=== PATIENT | male | born 1950 | race African-American/Black ===

== ENCOUNTER 2017-01-29 19:23 | Inpatient (IN) | payer OTHER ==
[~2017-01-29] VITALS: Ht 180.3 cm; Wt 72.6 kg
[~2017-01-29 19:23] MED LIST: AMLODIPINE BES2.5 MG ORAL
--- NOTE | 2017-01-29 19:38 | Emergency Room Report ---
History of Present Illness General Chief Complaint: Dyspnea/Respdistress Source: Patient, Medical Record, EMS Present Illness HPI 66-year-old male, former smoker, newly diagnosed stage IV lung cancer, presenting with dyspnea and generalized weakness. Patient states that he was at the grocery store, felt that he was going to pass out, could not catch his breath. Patient states that he lives alone States that he had a recent discharge from [facility] a few weeks ago, that when he found out that he had stage IV lung cancer, he is supposed to see an oncologist has not completed any chemotherapy or radiation Allergies: Coded Allergies: No Known Allergies (Unverified , 01/29/17) Patient History Past Medical History: see triage record Past Surgical History: none Pertinent Family History: none Reviewed Nursing Documentation: PMH: Agreed, PSxH: Agreed Nursing Documentation-PMH Past Medical History: No History, Except For Hx Hypertension: Yes Review of Systems All Other Systems: negative except mentioned in HPI Physical Exam Vital Signs Date Time Temp Pulse Resp B/P (MAP) Pulse Ox O2 Delivery O2 Flow Rate FiO2 01/29/17 19:19 98.4 102 16 103/83 95 Nasal Cannula 2.0 Sp02 EP Interpretation: abnormal - 90 on RA, 100 on 2L NC General Appearance: alert, GCS 15, non-toxic, moderate distress, other - sob but speaking in complete sentences Head: normocephalic, atraumatic Eyes: bilateral eye normal inspection, bilateral eye PERRL, bilateral eye EOMI ENT: normal ENT inspection, normal pharynx, normal voice, moist mucus membranes Neck: normal inspection, full range of motion, supple Respiratory: respiratory distress, speaking full sentences, other - diminished b/s R lung base, possible wheeze L side, chest symmetrical Cardiovascular #1: no edema, normal capillary refill, tachycardia Cardiovascular #2: 2+ radial (R), 2+ radial (L) Gastrointestinal: normal inspection, non tender, soft, non-distended, no guarding Musculoskeletal: normal inspection, back normal, normal range of motion, non- tender Neurologic: normal inspection, alert, oriented x3, responsive, motor strength/ tone normal, sensory intact, normal gait, speech normal Psychiatric: normal inspection, judgement/insight normal, memory normal Skin: normal inspection, normal color, no rash, warm/dry, well hydrated, normal turgor Medical Decision Making Diagnostic Impression: Primary Impression: Dyspnea Additional Impression: Lung cancer ER Course 66-year-old male, lung CA, presenting with dyspnea DDX: Pneumonia, COPD exacerbation, ACS, progression of lung cancer, pulmonary embolism Plan: Obtain labs, ua, EKG, CXR ER course: Patient has been monitored during ED stay, HD stable Mildly hypoxic on room air, 2 L nasal cannula given Document obtained from [facility], patient had a CAT scan of the chest on January 21, it showed stable encasement N. attenuation of the left pulmonary artery by hilar mass and lymphadenopathy. No pulmonary embolism. Stable appearance of left hilar mass suspicious for malignancy. Stable/moderate right pleural effusion. labs unremarkable Disposition: Patient is to be admitted to telemetry D/W hospitalist Dr Luz Kramer Please note that this Emergency Department Report was dictated using [employer] identifier technology software, occasionally this can lead to erroneous entry secondary to interpretation by the dictation equipment. EKG Diagnostic Results EP Interpretation: Yes Rate: normal Rhythm: NSR ST Segments: No acute changes + pvcs ASA given to patient: No Rhythm Strip EP Interpretation: Yes Rate: 83 Rhythm: NSR, +PVCs, no ectopy Chest X-ray CXR: Ordered: Yes 1 view Indication: Shortness of breath EP interpretation: Yes Interpretation: b/l pulmonary infilrate vs. lung mass Impression: b/l pulm infilrate vs. lung mass Electronically signed by Liza Ram MD Laboratory Tests Test 01/29/17 19:33 01/29/17 20:06 White Blood Count 6.3 K/UL (4.8-10.8) Red Blood Count 4.40 M/UL (4.70-6.10) L Hemoglobin 13.8 G/DL (14.2-18.0) L Hematocrit 42.4 % (42.0-52.0) Mean Corpuscular Volume 96 FL (80-99) Mean Corpuscular Hemoglobin 31.4 PG (27.0-31.0) H Mean Corpuscular Hemoglobin Concent 32.6 G/DL (32.0-36.0) Red Cell Distribution Width 12.2 % (11.6-14.8) Platelet Count 323 K/UL (150-450) Mean Platelet Volume 7.6 FL (6.5-10.1) Neutrophils (%) (Auto) 72.8 % (45.0-75.0) Lymphocytes (%) (Auto) 16.5 % (20.0-45.0) L Monocytes (%) (Auto) 8.0 % (1.0-10.0) Eosinophils (%) (Auto) 1.9 % (0.0-3.0) Basophils (%) (Auto) 0.9 % (0.0-2.0) Sodium Level 138 MMOL/L (136-145) Potassium Level 4.1 MMOL/L (3.5-5.1) Chloride Level 103 MMOL/L (98-107) Carbon Dioxide Level 30 MMOL/L (21-32) Anion Gap 5 mmol/L (5-15) Blood Urea Nitrogen 16 mg/dL (7-18) Creatinine 1.1 MG/DL (0.55-1.30) Estimate Glomerular Filtration Rate > 60 mL/min (>60) Glucose Level 93 MG/DL (74-106) Calcium Level 9.5 MG/DL (8.5-10.1) Total Bilirubin 0.3 MG/DL (0.2-1.0) Aspartate Amino Transferase (AST) 29 U/L (15-37) Alanine Aminotransferase (ALT) 20 U/L (12-78) Alkaline Phosphatase 59 U/L (46-116) Troponin I 0.024 ng/mL (0.000-0.056) Pro-B-Type Natriuretic Peptide 949 pg/mL (0-125) H Total Protein 7.0 G/DL (6.4-8.2) Albumin 2.6 G/DL (3.4-5.0) L Globulin 4.4 g/dL Albumin/Globulin Ratio 0.6 (1.0-2.7) L Urine Color Yellow Urine Appearance Clear Urine pH 6 (4.5-8.0) Urine Specific [place] 1.015 (1.005-1.035) Urine Protein 1+ (NEGATIVE) H Urine Glucose (UA) Negative (NEGATIVE) Urine Ketones Negative (NEGATIVE) Urine Occult Blood 1+ (NEGATIVE) H Urine Nitrite Negative (NEGATIVE) Urine Bilirubin Negative (NEGATIVE) Urine Urobilinogen Normal MG/DL (0.0-1.0) Urine Leukocyte Esterase 1+ (NEGATIVE) H Urine RBC 5-10 /HPF (0 - 0) H Urine WBC 0-2 /HPF (0 - 0) Urine Squamous Epithelial Cells None /LPF (NONE/OCC) Urine Calcium Oxalate Crystals Moderate /LPF (NONE) Urine Bacteria Occasional /HPF (NONE) Last Vital Signs Date Time Temp Pulse Resp B/P (MAP) Pulse Ox O2 Delivery O2 Flow Rate FiO2 01/29/17 19:19 98.4 102 16 103/83 95 Nasal Cannula 2.0 Disposition: ADMITTED INPATIENT Condition: Serious RetinoLiza M.D. Jan 29, 2017 19:38
[2017-01-29 19:50] LABS: BASOPHILS % (AUTO) 0.9 % (0.0-2.0); EOSINOPHILS % (AUTO) 1.9 % (0.0-3.0); LYMPHOCYTES % (AUTO) 16.5 % (20.0-45.0); MEAN CORPUSCULAR HEMOGLOBIN 31.4 PG (27.0-31.0); MEAN CORPUSCULAR HGB CONC 32.6 G/DL (32.0-36.0); MEAN CORPUSCULAR VOLUME 96 FL (80-99); MEAN PLATELET VOLUME 7.6 FL (6.5-10.1); NEUTROPHILS % (AUTO) 72.8 % (45.0-75.0); PLATELET COUNT 323 K/UL (150-450); RED CELL DISTRIBUTION WIDTH 12.2 % (11.6-14.8); WHITE BLOOD COUNT 6.3 K/UL (4.8-10.8)
[2017-01-29 20:07] LABS: ANION GAP 5 mmol/L (5-15); CALCIUM 9.5 MG/DL (8.5-10.1); CARBON DIOXIDE 30 MMOL/L (21-32); CHLORIDE 103 MMOL/L (98-107); CREATININE 1.1 MG/DL (0.55-1.30); GLOMERULAR FILTRATION RATE > 60 mL/min (>60); POTASSIUM 4.1 MMOL/L (3.5-5.1); SODIUM 138 MMOL/L (136-145)
[2017-01-29 20:16] VITALS: BP 109/92
[2017-01-29 20:17] LABS: ALANINE AMINOTRANSFERASE 20 U/L (12-78); ALBUMIN/GLOBULIN RATIO 0.6 (1.0-2.7); ASPARTATE AMINO TRANSFERASE 29 U/L (15-37)
[2017-01-29 20:45] LABS: APPEARANCE,URINE CLEAR; KETONES,URINE NEGATIVE (NEGATIVE); LEUKOCYTE ESTERASE ,URINE 1+ (NEGATIVE); NITRITE,URINE NEGATIVE (NEGATIVE); PH,URINE 6 (4.5-8.0); PROTEIN,URINE 1+ (NEGATIVE); UROBILINOGEN,URINE NORMAL MG/DL (0.0-1.0)
[2017-01-29 20:52] LABS: WBC,URINE 0-2 /HPF (0 - 0)
[2017-01-29 20:53] LABS: BACTERIA,URINE OCCASIONAL /HPF; CALCIUM OXALATE CRYSTALS,UR MODERATE /LPF
[2017-01-29 21:36] VITALS: BP 104/70
[2017-01-29] MEDS ORDERED: Morphine Sulfate 4mg/ml Inj IVP ONE (21:45)
[2017-01-29] MEDS ORDERED: Miralax 17gm pkt ORAL PRN (22:45)
[2017-01-29] MEDS ORDERED: Vancomycin 1 GM in D5W 275 ML IV SCH (23:00)
[2017-01-30] MEDS: Vancomycin 1.5 GM/D5W 250ML IVPB SCH ×3 (00:17→23:50)
[2017-01-30 00:41] VITALS: BP 103/62
[2017-01-30 04:39] VITALS: BP 109/59
[2017-01-30] MEDS: Albuterol/Ipratropium 3ml neb HHN PRN (07:56)
[2017-01-30 07:59] LABS: EOSINOPHILS % (AUTO) 2.6 % (0.0-3.0); LYMPHOCYTES % (AUTO) 18.8 % (20.0-45.0); MEAN CORPUSCULAR HEMOGLOBIN 31.8 PG (27.0-31.0); MEAN CORPUSCULAR HGB CONC 33.1 G/DL (32.0-36.0); MEAN CORPUSCULAR VOLUME 96 FL (80-99); MEAN PLATELET VOLUME 7.7 FL (6.5-10.1); MONOCYTES % (AUTO) 11.7 % (1.0-10.0); NEUTROPHILS % (AUTO) 65.9 % (45.0-75.0); PLATELET COUNT 326 K/UL (150-450); RED BLOOD COUNT 4.37 M/UL (4.70-6.10); RED CELL DISTRIBUTION WIDTH 12.4 % (11.6-14.8)
[2017-01-30 08:21] LABS: ANION GAP 5 mmol/L (5-15); CALCIUM 9.4 MG/DL (8.5-10.1); CARBON DIOXIDE 30 MMOL/L (21-32); CHLORIDE 103 MMOL/L (98-107); CREATININE 1.1 MG/DL (0.55-1.30); GLOMERULAR FILTRATION RATE > 60 mL/min (>60); PHOSPHORUS 3.8 MG/DL (2.5-4.9); POTASSIUM 4.3 MMOL/L (3.5-5.1); SODIUM 138 MMOL/L (136-145)
[2017-01-30 08:22] VITALS: BP 108/80
[2017-01-30] MEDS ORDERED: Cefepime HCl 2 GM in D5W 110 ML IV SCH (09:00)
[2017-01-30] MEDS: Morphine Sulfate 4mg/ml Inj IVP PRN ×3 (09:02→22:57)
[2017-01-30] MEDS: Heparin 5000 units/ml inj SUBQ SCH ×2 (09:19→21:07)
--- NOTE | 2017-01-30 10:56 | Diagnostic Imaging Report ---
Indication: Dyspnea Comparison: None A single view chest radiograph was obtained. Findings: Interstitial edema demonstrated. Patchy basilar infiltrates noted. The heart is borderline in size. Bones are osteopenic. Impression: Suspected CHF. Basilar infiltrates either inflammatory or asymmetric edema noted.
[2017-01-30 11:52] VITALS: BP 104/54
--- NOTE | 2017-01-30 13:12 | Consultation ---
History of Present Illness General Date patient seen: Jan 30, 2017 Time patient seen: 12:15 Chief Complaint: Dyspnea/Respdistress Referring physician: dr Crooks Reason for Consultation: lung Ca, resp distress Present Illness HPI 66-year-old male with hx of HTN, former smoker, newly diagnosed stage IV lung cancer, presented with dyspnea and generalized weakness. Patient reports air hunger, unable to catch enough air or take a deep breath Patient was recently hospitalized at [facility] few weeks ago, where it was found out that he had stage IV lung cancer At that time had complete workup for chest pain, including cardiac cath Patient initially hypoxemic, required placement of supplemental oxygen ( no oxygen at home) afebrile, CXR with suspected CHF. Basilar infiltrates either inflammatory or asymmetric edema noted pro [id number] troponin negative lytes stable patient was admitted to tele floor for further management Allergies: Coded Allergies: No Known Allergies (Unverified , 01/29/17) Medication History Scheduled Amlodipine Besylate* (Amlodipine Besylate*), 2.5 MG ORAL DAILY, (Reported) Patient History History Provided By: Patient Healthcare decision maker N Resuscitation status Full Code Advanced Directive on File No Past Medical/Surgical History Past Medical/Surgical History: (1) Tobacco abuse (2) HTN (hypertension) (3) Lung cancer Review of Systems Constitutional: Reports: weakness Eye: Reports: no symptoms ENT: Reports: no symptoms Respiratory: Reports: see HPI Cardiovascular: Reports: see HPI Gastrointestinal: Reports: other - epigastric pain Genitourinary: Reports: no symptoms Musculoskeletal: Reports: no symptoms Skin: Reports: no symptoms Psychiatric: Reports: other Neurological: Reports: no symptoms Endocrine: Reports: no symptoms Hematologic/Lymphatic: Reports: no symptoms Physical Exam General Appearance: no apparent distress, other - A/A/O x 3 in mild distress AA male Lines, tubes and drains: peripheral HEENT: normocephalic, atraumatic, anicteric, mucous membranes moist, PERRL, other - O2 via NC Neck: non-tender, supple Respiratory/Chest: other - decreased BS on the left side, rhonchi on the rigth side Cardiovascular/Chest: normal rate, regular rhythm - SR with frequent PVC, other - trace edema foot Abdomen: normal bowel sounds, non tender, soft Extremities: normal range of motion, non-tender, no calf tenderness, normal capillary refill 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, no motor/sensory deficits, alert, oriented x 3, responsive Lymphatic: anterior cervical Musculoskeletal: normal muscle bulk Last 24 Hour Vital Signs Date Time Temp Pulse Resp B/P (MAP) Pulse Ox O2 Delivery O2 Flow Rate FiO2 01/30/17 11:52 97.2 80 20 104/54 94 01/30/17 09:32 97.0 01/30/17 08:22 97.0 108 20 108/80 97 01/30/17 08:06 92 16 98 Nasal Cannula 2.0 28 01/30/17 08:00 87 01/30/17 07:53 28 01/30/17 07:53 95 18 Nasal Cannula 2.0 28 01/30/17 07:53 95 18 97 Nasal Cannula 2.0 28 01/30/17 04:39 98.4 77 18 109/59 94 Nasal Cannula 01/30/17 04:31 95 Nasal Cannula 2.0 01/30/17 03:38 80 01/30/17 01:26 98 Nasal Cannula 2.0 01/30/17 00:41 96.4 74 18 103/62 98 Nasal Cannula 01/29/17 23:34 88 01/29/17 22:00 98.4 87 13 104/70 95 Nasal Cannula 2.0 93 01/29/17 22:00 98.4 01/29/17 21:36 98.4 87 13 104/70 95 Nasal Cannula 2.0 93 01/29/17 20:16 98.4 94 21 109/92 95 Nasal Cannula 2.0 93 01/29/17 19:23 102 16 Nasal Cannula 2.0 93 01/29/17 19:19 98.4 102 16 103/83 95 Nasal Cannula 2.0 Intake and Output 01/30/17 01/31/17 19:00 07:00 Intake Total 110 ml Balance 110 ml IV Total 110 ml Laboratory Tests Test 01/29/17 19:33 01/29/17 20:06 01/30/17 06:50 White Blood Count 6.3 K/UL (4.8-10.8) 6.0 K/UL (4.8-10.8) Red Blood Count 4.40 M/UL (4.70-6.10) L 4.37 M/UL (4.70-6.10) L Hemoglobin 13.8 G/DL (14.2-18.0) L 13.9 G/DL (14.2-18.0) L Hematocrit 42.4 % (42.0-52.0) 41.9 % (42.0-52.0) L Mean Corpuscular Volume 96 FL (80-99) 96 FL (80-99) Mean Corpuscular Hemoglobin 31.4 PG (27.0-31.0) H 31.8 PG (27.0-31.0) H Mean Corpuscular Hemoglobin Concent 32.6 G/DL (32.0-36.0) 33.1 G/DL (32.0-36.0) Red Cell Distribution Width 12.2 % (11.6-14.8) 12.4 % (11.6-14.8) Platelet Count 323 K/UL (150-450) 326 K/UL (150-450) Mean Platelet Volume 7.6 FL (6.5-10.1) 7.7 FL (6.5-10.1) Neutrophils (%) (Auto) 72.8 % (45.0-75.0) 65.9 % (45.0-75.0) Lymphocytes (%) (Auto) 16.5 % (20.0-45.0) L 18.8 % (20.0-45.0) L Monocytes (%) (Auto) 8.0 % (1.0-10.0) 11.7 % (1.0-10.0) H Eosinophils (%) (Auto) 1.9 % (0.0-3.0) 2.6 % (0.0-3.0) Basophils (%) (Auto) 0.9 % (0.0-2.0) 1.0 % (0.0-2.0) Sodium Level 138 MMOL/L (136-145) 138 MMOL/L (136-145) Potassium Level 4.1 MMOL/L (3.5-5.1) 4.3 MMOL/L (3.5-5.1) Chloride Level 103 MMOL/L (98-107) 103 MMOL/L (98-107) Carbon Dioxide Level 30 MMOL/L (21-32) 30 MMOL/L (21-32) Anion Gap 5 mmol/L (5-15) 5 mmol/L (5-15) Blood Urea Nitrogen 16 mg/dL (7-18) 17 mg/dL (7-18) Creatinine 1.1 MG/DL (0.55-1.30) 1.1 MG/DL (0.55-1.30) Estimat Glomerular Filtration Rate > 60 mL/min (>60) > 60 mL/min (>60) Glucose Level 93 MG/DL (74-106) 86 MG/DL (74-106) Calcium Level 9.5 MG/DL (8.5-10.1) 9.4 MG/DL (8.5-10.1) Total Bilirubin 0.3 MG/DL (0.2-1.0) Aspartate Amino Transf (AST/SGOT) 29 U/L (15-37) Alanine Aminotransferase (ALT/SGPT) 20 U/L (12-78) Alkaline Phosphatase 59 U/L (46-116) Troponin I 0.024 ng/mL (0.000-0.056) Pro-B-Type Natriuretic Peptide 949 pg/mL (0-125) H Total Protein 7.0 G/DL (6.4-8.2) Albumin 2.6 G/DL (3.4-5.0) L 2.5 G/DL (3.4-5.0) L Globulin 4.4 g/dL Albumin/Globulin Ratio 0.6 (1.0-2.7) L Lipase 66 U/L (73-393) L Urine Color Yellow Urine Appearance Clear Urine pH 6 (4.5-8.0) Urine Specific [place] 1.015 (1.005-1.035) Urine Protein 1+ (NEGATIVE) H Urine Glucose (UA) Negative (NEGATIVE) Urine Ketones Negative (NEGATIVE) Urine Occult Blood 1+ (NEGATIVE) H Urine Nitrite Negative (NEGATIVE) Urine Bilirubin Negative (NEGATIVE) Urine Urobilinogen Normal MG/DL (0.0-1.0) Urine Leukocyte Esterase 1+ (NEGATIVE) H Urine RBC 5-10 /HPF (0 - 0) H Urine WBC 0-2 /HPF (0 - 0) Urine Squamous Epithelial Cells None /LPF (NONE/OCC) Urine Calcium Oxalate Crystals Moderate /LPF (NONE) Urine Bacteria Occasional /HPF (NONE) Phosphorus Level 3.8 MG/DL (2.5-4.9) CA 15-3 Antigen Pending CA 125 Antigen Pending Height (Feet): 5 Height (Inches): 11.00 Weight (Pounds): 160 Medications Current Medications Medications (Trade) Dose Ordered Sig/Matthew Route PRN Reason Start Time Stop Time Status Last Admin Dose Admin Acetaminophen (Tylenol) 650 mg Q4H PRN ORAL FEVER 01/29/17 22:45 02/28/17 22:44 Albuterol/ Ipratropium (Albuterol/ Ipratropium) 3 ml EVERY 4 HOURS PRN HHN Shortness of Breath 01/29/17 22:45 02/03/17 22:44 01/30/17 07:56 Cefepime HCl 2 gm/ Dextrose 110 ml @ 220 mls/hr EVERY 12 HOURS IV 01/30/17 09:00 02/06/17 08:59 01/30/17 09:18 Dextrose (Dextrose 50%) STAT PRN IV Hypoglycemia 01/29/17 22:45 02/28/17 22:44 Heparin Sodium (Porcine) (Heparin 5000 units/ml) 5,000 units EVERY 12 HOURS SUBQ 01/30/17 09:00 03/01/17 08:59 01/30/17 09:19 Morphine Sulfate (Morphine Sulfate) 2 mg EVERY 4 HOURS PRN IVP Severe Pain (Pain Scale 7-10) 01/29/17 22:45 02/05/17 22:44 01/30/17 09:02 Ondansetron HCl (Zofran) 4 mg Q6H PRN IVP Nausea & Vomiting 01/29/17 22:45 02/28/17 22:44 Polyethylene Glycol (Miralax) 17 gm DAILYPRN PRN ORAL Constipation 01/29/17 22:45 02/28/17 22:44 Vancomycin HCl (Vanco rx to dose) 1 ea DAILY PRN MISC PROT 01/29/17 23:15 02/28/17 23:14 Vancomycin HCl/ Dextrose 250 ml @ 125 mls/hr Q12H IVPB 01/29/17 23:30 02/03/17 23:29 01/30/17 11:38 Assessment/Plan Status Narrative ASSESSMENT respiratory distress advanced lung Ca st 4 possible CHF possible PNA HTN hx of tobacco abuse PLAN OF CARE tele O2 titrate to keep sat above 92% pulmonary toilet empiric abx fup with CXR sputum cx ID consult obtain records from [facility] probably had ECHO in [facility], will hold on ECHO until records obtained onco eval cancer tumor markers monitor BP , currently normotensive, no need for anti HTN meds venous Duplex BLE DVT , GI prophayxlis pain management Bowel regimen case discussed and evaluated by supervising physician Pedro Lima),Luana KELLY Jan 30, 2017 13:12
--- NOTE | 2017-01-30 13:59 | History & Physical ---
History and Physical History & Physicial Dictated for Int Med-no. [id number]. ELEAZAR BELTRE Jan 30, 2017 13:59
[2017-01-30 15:43] VITALS: BP 117/55
--- NOTE | 2017-01-30 15:59 | Consultation ---
Consult Note Consult Note ID Dic # [id number] NUNO VERONICA M.D. Jan 30, 2017 15:59
--- NOTE | 2017-01-30 16:45 | History and Physical Report ---
DATE OF ADMISSION: 01/29/2017 CHIEF COMPLAINT: The patient is a 66-year-old male, who presents with a chief complaint of generalized weakness and shortness of breath. HISTORY OF PRESENT ILLNESS: The patient was admitted to [facility] from 01/07/2017 to 01/21/2017. The patient was admitted after he collapsed at work. The patient was found to have bilateral lung cancer with metastases to the lymph nodes. Biopsy results are pending at [facility]. The patient was discharged home. The patient states he was at a grocery store yesterday, 01/29/2017. The patient began to feel weak. The patient states that his stomach felt full. The patient became increasingly short of breath. The patient was able to make at home, however, he was unable to make it up the stairs to his house. A 911 was called. The patient was transferred to [place] emergency room. The patient is admitted for hypoxemia and stage IV lung cancer. PAST MEDICAL HISTORY: Significant for metastatic lung cancer as above. PAST SURGICAL HISTORY: The patient denies. CURRENT MEDICATIONS: The patient denies. ALLERGIES: To ibuprofen, which causes nausea. SOCIAL HISTORY: The patient is single. 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 The patient admits to tobacco use of one-half pack per day. The patient admits to occasional alcohol use. The patient denies drug abuse. REVIEW OF SYSTEMS: CONSTITUTIONAL: The patient complains of weight loss of approximately 30 pounds over the last year. The patient complains of generalized weakness. The patient denies fevers or chills. HEENT: The patient denies ear or throat pain. The patient denies headache. CARDIOVASCULAR: The patient denies palpitations or chest pain. CHEST: The patient complains of shortness of breath as above. The patient denies wheezes. ABDOMEN: The patient complains of abdominal distention. The patient denies nausea, vomiting, diarrhea, or constipation. GENITOURINARY: The patient denies dysuria or increased frequency of urination. NEUROMUSCULAR: The patient complains of generalized weakness as above. The patient denies seizures. PHYSICAL EXAMINATION: VITAL SIGNS: Temperature 97.0, respirations 20, pulse 108, and blood pressure 108/80. GENERAL: The patient is a thin-appearing male, in no apparent distress. HEENT: Eyes, pupils equal and responsive to light and accommodation. Extraocular movements are intact. NECK: Supple without lymphadenopathy. CHEST: Decreased breath sounds in bilateral bases with few expiratory wheezes bilaterally, otherwise without rales. ABDOMEN: Soft, nontender, and nondistended. Positive bowel sounds. No evidence of hepatosplenomegaly. Currently, no rebound or guarding noted. EXTREMITIES: Negative for clubbing, cyanosis, or edema. RECTAL/GENITAL: Refused. NEUROLOGIC: Cranial nerves II through XII are grossly intact without focal deficits. Motor strength is 5/5 bilaterally. Deep tendon reflexes are 2+ plantar. LYMPHATICS: Presence of cervical and axillary lymphadenopathy. LABORATORY STUDIES: WBC 6.3, hemoglobin 13.8, hematocrit 42.4, and platelets 323,000. Sodium 138, potassium 4.1, chloride 103, CO2 30, BUN 16, creatinine 1.1, and glucose 93. Chest x-ray revealed patchy basilar infiltrates, otherwise no acute disease. ASSESSMENT: This is a 66-year-old male. 1. Shortness of breath. 2. Bilateral basilar pneumonia. 3. Metastatic lung cancer. 4. Bilateral pleural effusions. TREATMENT: 1. Shortness of breath/pneumonia. A Pulmonary consultation has been obtained with Dr. Jer Villegas. The patient has been started empirically on vancomycin and cefepime. We will follow recommendations of Pulmonary. 2. Lung cancer with metastases. Records are pending from [facility]. An Oncology consultation is pending with Dr. Gloria. We will follow recommendations of Oncology. A CT scan of the chest, abdomen, and pelvis is pending. 3. Bilateral pleural effusions. The patient may require thoracentesis during this hospitalization. Williams Escobar M.D. DR: LAY JOB#: [id number] CC:
[2017-01-30] MEDS: Meropenem 1 GM in NS 55 ML IVPB SCH (17:45)
--- NOTE | 2017-01-30 18:20 | Cardiology Report ---
APPROVED REPORT EKG Measurement Heart [id number] Sinus rhythm with frequent, and consecutive premature ventricular complexes Nonspecific T wave abnormality Abnormal ECG
[2017-01-30] MEDS ORDERED: NS 500ML ONE (20:17)
[2017-01-30] MEDS ORDERED: Tubing IV Secondary IV ONE (20:17)
[2017-01-30 20:28] VITALS: BP 108/81
--- NOTE | 2017-01-30 22:45 | Consultation ---
DATE OF CONSULTATION: 01/30/2017 INFECTIOUS DISEASES CONSULTATION CONSULTING PHYSICIAN: Nathanael Reyes M.D. REQUESTING PHYSICIAN: Jer Villegas M.D. REASON FOR CONSULTATION: Evaluation of the patient for possible pneumonia and antibiotic management. HISTORY OF PRESENT ILLNESS: The patient is a 66-year-old male with multiple medical problems as listed below, who was admitted to this medical center due to shortness of breath and weakness. The patient has history of multiple hospitalizations. The latest one was in [facility] about one week ago, however, the patient was not able to provide much detailed information regarding the recent hospitalization. Infectious Diseases consultation has been requested for evaluation of the patient for possible underlying pneumonia. The patient has been complaining of cough with sputum production. PAST MEDICAL HISTORY: 1. Hypertension. 2. Stage IV lung cancer. ALLERGIES: No known drug allergies. SOCIAL HISTORY: The patient is a smoker. FAMILY HISTORY: Not contributing. REVIEW OF SYSTEMS: HEENT: No recent change in vision or hearing. PULMONARY: As mentioned above. CARDIOVASCULAR: No chest pain or palpitations. GASTROINTESTINAL/ABDOMEN: The patient has abdominal distention and mild epigastric pain. NEUROLOGIC: The patient has no seizure. GENITOURINARY: No dysuria. PHYSICAL EXAMINATION: VITAL SIGNS: Temperature 97, blood pressure 117/65, pulse 86, and respiratory rate 18. HEENT: No pale conjunctivae. No icterus. NECK: No lymphadenopathy. CHEST: Coarse breathing sounds. HEART: S1 and S2. ABDOMEN: Soft. The patient has mild epigastric tenderness. The patient has also epigastric distention. EXTREMITIES: No cyanosis. NEUROLOGIC: Awake and alert. LABORATORY AND DIAGNOSTIC DATA: White blood cells 6, hemoglobin 13, and platelets 326,000. UA unremarkable . BUN 17 and creatinine 1.1. ALT and AST are unremarkable. Chest x-ray showed bibasilar infiltrate. ASSESSMENT: 1. The patient is a 66-year-old male with multiple history of pneumonia, rule out post obstructive pneumonia versus healthcare-associated pneumonia. 2. History of lung cancer. 3. History of multiple adenopathy in the thoracic and neck. 4. Rule out metastases to liver versus pancreas (the patient is a poor historian). 5. History of hypertension. PLAN: 1. We will continue the patient on IV vancomycin and change cefepime to meropenem for broader coverage in view of recent multiple admissions and recurrence of pneumonia. 2. Monitor CBC. 3. Monitor BMP. 4. Monitor cultures (blood and sputum). 5. Based on the patient's clinical course and laboratories, we will do further recommendations. 6. Also, we will try to obtain the records from [facility]. Thank you, Dr. Villegas, for allowing me to participate in the care of this patient. I will follow the patient with you during this hospitalization. Nathanael Reyes M.D. DR: PRAVEEN JOB#: [id number] CC:
[2017-01-31] VITALS (8 sets, daily range): BP systolic 112–128; BP diastolic 45–71
[2017-01-31] MEDS: Meropenem 1 GM in NS 55 ML IVPB SCH ×3 (02:33→18:22)
[2017-01-31] MEDS: Morphine Sulfate 4mg/ml Inj IVP PRN ×4 (04:37→22:52)
[2017-01-31 07:46] LABS: ANION GAP 3 mmol/L (5-15); CALCIUM 9.1 MG/DL (8.5-10.1); CARBON DIOXIDE 31 MMOL/L (21-32); CHLORIDE 104 MMOL/L (98-107); CREATININE 1.1 MG/DL (0.55-1.30); GLOMERULAR FILTRATION RATE > 60 mL/min (>60); POTASSIUM 4.2 MMOL/L (3.5-5.1); SODIUM 138 MMOL/L (136-145)
--- NOTE | 2017-01-31 08:16 | Pulmonology Progress Note ---
Assessment/Plan Assessment/Plan ASSESSMENT respiratory distress advanced lung cancer, st 4 possible asymmetric pulmonary edema, possible CHF possible PNA HTN hx of tobacco abuse hx of thoracic and neck adenopathy PLAN OF CARE tele O2 titrate to keep sat above 92% pulmonary toilet empiric abx fup with CXR in am sputum cx ID follows records from [facility] pending probably had ECHO in [facility], will hold on ECHO until records obtained CT C/A/P - pending onco eval cancer tumor markers pending monitor BP , currently normotensive, no need for anti HTN meds venous Duplex BLE DVT , GI prophayxlis pain management Bowel regimen case discussed and evaluated by supervising physician Subjective Allergies: Coded Allergies: No Known Allergies (Unverified , 01/29/17) Subjective remains on o2 via NC same complaints afebrile, no leukocytosis denies prior hx of COPD + smoking hx 1 pack for 2-3 days, quit 6 m ago denies chest pain Objective Last 24 Hour Vital Signs Date Time Temp Pulse Resp B/P (MAP) Pulse Ox O2 Delivery O2 Flow Rate FiO2 01/31/17 08:04 62 20 Nasal Cannula 2.0 28 01/31/17 04:00 97.3 43 22 113/71 94 Nasal Cannula 2.0 01/31/17 04:00 83 01/31/17 00:00 97.3 88 20 128/61 93 Nasal Cannula 2.0 01/31/17 00:00 88 01/30/17 21:11 89 18 Nasal Cannula 2.0 28 01/30/17 20:28 97.0 87 20 108/81 94 Room Air 01/30/17 20:00 79 01/30/17 18:19 97.0 01/30/17 16:00 83 01/30/17 15:43 97.0 86 20 117/55 96 01/30/17 12:00 75 01/30/17 12:00 94 Nasal Cannula 2.0 01/30/17 11:52 97.2 80 20 104/54 94 01/30/17 08:22 97.0 108 20 108/80 97 Objective General Appearance: no apparent distress, other - A/A/O x 3 in mild distress AA male Lines, tubes and drains: peripheral HEENT: normocephalic, atraumatic, anicteric, mucous membranes moist, PERRL, O2 via NC Neck: non-tender, supple Respiratory/Chest: decreased BS on the left side, few rhonchi on the right side Cardiovascular/Chest: normal rate, regular rhythm - SR with frequent PVC, other - trace edema foot Abdomen: normal bowel sounds, non tender, soft Extremities: normal range of motion, non-tender, no calf tenderness, normal capillary refill 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, no motor/sensory deficits, alert, oriented x 3, responsive Lymphatic: anterior cervical Musculoskeletal: normal muscle bulk Laboratory Tests 01/31/17 05:45: White Blood Count [Pending], Red Blood Count [Pending], Hemoglobin [Pending], Hematocrit [Pending], Mean Corpuscular Volume [Pending], Mean Corpuscular Hemoglobin [Pending], Mean Corpuscular Hemoglobin Concent [Pending], Red Cell Distribution Width [Pending], Platelet Count [Pending], Mean Platelet Volume [ Pending], Neutrophils (%) (Auto) [Pending], Lymphocytes (%) (Auto) [Pending], Monocytes (%) (Auto) [Pending], Eosinophils (%) (Auto) [Pending], Basophils (%) (Auto) [Pending], Sodium Level 138, Potassium Level 4.2, Chloride Level 104, Carbon Dioxide Level 31, Anion Gap 3L, Blood Urea Nitrogen 17, Creatinine 1.1, Estimat Glomerular Filtration Rate > 60, Glucose Level 105, Calcium Level 9.1 Current Medications Medications (Trade) Dose Ordered Sig/Matthew Route PRN Reason Start Time Stop Time Status Last Admin Dose Admin Acetaminophen (Tylenol) 650 mg Q4H PRN ORAL FEVER 01/29/17 22:45 02/28/17 22:44 Albuterol/ Ipratropium (Albuterol/ Ipratropium) 3 ml EVERY 4 HOURS PRN HHN Shortness of Breath 01/29/17 22:45 02/03/17 22:44 01/30/17 07:56 Dextrose (Dextrose 50%) STAT PRN IV Hypoglycemia 01/29/17 22:45 02/28/17 22:44 Heparin Sodium (Porcine) (Heparin 5000 units/ml) 5,000 units EVERY 12 HOURS SUBQ 01/30/17 09:00 03/01/17 08:59 01/30/17 21:07 Meropenem 1 gm/ Sodium Chloride 55 ml @ 110 mls/hr Q8H IVPB 01/30/17 17:00 02/04/17 16:59 01/31/17 02:33 Morphine Sulfate (Morphine Sulfate) 2 mg EVERY 4 HOURS PRN IVP Severe Pain (Pain Scale 7-10) 01/29/17 22:45 02/05/17 22:44 01/31/17 04:37 Ondansetron HCl (Zofran) 4 mg Q6H PRN IVP Nausea & Vomiting 01/29/17 22:45 02/28/17 22:44 Polyethylene Glycol (Miralax) 17 gm DAILYPRN PRN ORAL Constipation 01/29/17 22:45 02/28/17 22:44 Ranitidine HCl (Zantac) 150 mg BEDTIME ORAL 01/30/17 21:00 03/01/17 20:59 01/30/17 21:05 Vancomycin HCl (Vanco rx to dose) 1 ea DAILY PRN MISC PROT 01/29/17 23:15 02/28/17 23:14 Vancomycin HCl/ Dextrose 250 ml @ 125 mls/hr Q12H IVPB 01/29/17 23:30 02/03/17 23:29 01/30/17 23:50 Pedro ([place] NP Jan 31, 2017 08:16
[2017-01-31 08:28] LABS: BASOPHILS % (AUTO) 1.4 % (0.0-2.0); EOSINOPHILS % (AUTO) 3.2 % (0.0-3.0); LYMPHOCYTES % (AUTO) 20.6 % (20.0-45.0); MEAN CORPUSCULAR HGB CONC 33.2 G/DL (32.0-36.0); MEAN CORPUSCULAR VOLUME 96 FL (80-99); MEAN PLATELET VOLUME 7.9 FL (6.5-10.1); MONOCYTES % (AUTO) 10.8 % (1.0-10.0); PLATELET COUNT 273 K/UL (150-450); RED BLOOD COUNT 4.17 M/UL (4.70-6.10); RED CELL DISTRIBUTION WIDTH 12.5 % (11.6-14.8); WHITE BLOOD COUNT 5.2 K/UL (4.8-10.8)
[2017-01-31] MEDS: Heparin 5000 units/ml inj SUBQ SCH ×2 (08:35→20:15)
[2017-01-31] MEDS: Vancomycin 1.5 GM/D5W 250ML IVPB SCH ×2 (12:25→22:52)
--- NOTE | 2017-01-31 12:45 | Internal Med Progress Note ---
Subjective Date of Service: Jan 31, 2017 Physician Name Williams Beltre Attending Physician Williams Beltre Current Medications Medications (Trade) Dose Ordered Sig/Matthew Route PRN Reason Start Time Stop Time Status Last Admin Dose Admin Acetaminophen (Tylenol) 650 mg Q4H PRN ORAL FEVER 01/29/17 22:45 02/28/17 22:44 Albuterol/ Ipratropium (Albuterol/ Ipratropium) 3 ml EVERY 4 HOURS PRN HHN Shortness of Breath 01/29/17 22:45 02/03/17 22:44 01/30/17 07:56 Dextrose (Dextrose 50%) STAT PRN IV Hypoglycemia 01/29/17 22:45 02/28/17 22:44 Heparin Sodium (Porcine) (Heparin 5000 units/ml) 5,000 units EVERY 12 HOURS SUBQ 01/30/17 09:00 03/01/17 08:59 01/31/17 08:35 Meropenem 1 gm/ Sodium Chloride 55 ml @ 110 mls/hr Q8H IVPB 01/30/17 17:00 02/04/17 16:59 01/31/17 08:35 Morphine Sulfate (Morphine Sulfate) 2 mg EVERY 4 HOURS PRN IVP Severe Pain (Pain Scale 7-10) 01/29/17 22:45 02/05/17 22:44 01/31/17 08:34 Ondansetron HCl (Zofran) 4 mg Q6H PRN IVP Nausea & Vomiting 01/29/17 22:45 02/28/17 22:44 Polyethylene Glycol (Miralax) 17 gm DAILYPRN PRN ORAL Constipation 01/29/17 22:45 02/28/17 22:44 Ranitidine HCl (Zantac) 150 mg BEDTIME ORAL 01/30/17 21:00 03/01/17 20:59 01/30/17 21:05 Vancomycin HCl (Vanco rx to dose) 1 ea DAILY PRN MISC PROT 01/29/17 23:15 02/28/17 23:14 Vancomycin HCl/ Dextrose 250 ml @ 125 mls/hr Q12H IVPB 01/29/17 23:30 02/03/17 23:29 01/31/17 12:25 Allergies: Coded Allergies: No Known Allergies (Unverified , 01/29/17) ROS Limited/Unobtainable: No Constitutional: Reports: no symptoms HEENT: Reports: no symptoms Cardiovascular: Reports: no symptoms Respiratory: Reports: shortness of breath Gastrointestinal/Abdominal: Reports: no symptoms Genitourinary: Reports: no symptoms Neurologic/Psychiatric: Reports: no symptoms Subjective 66 YO M admitted with metastatic lung cancer and shortness of breath. Now pneumonia. Await CT chest/abdomen/pelvis and Oncology consult. Objective Last Vital Signs Date Time Temp Pulse Resp B/P (MAP) Pulse Ox O2 Delivery O2 Flow Rate FiO2 01/31/17 09:04 97.3 01/31/17 08:04 62 20 Nasal Cannula 2.0 28 01/31/17 08:00 125/64 01/31/17 04:00 94 General Appearance: WD/WN, no apparent distress, alert EENT: PERRL/EOMI, normal ENT inspection Neck: non-tender, normal alignment, supple, normal inspection Cardiovascular: normal peripheral pulses, normal rate, regular rhythm, no gallop/murmur, no JVD Respiratory/Chest: respiratory distress, crackles/rales, rhonchi - bilaterally , expiratory wheezing Abdomen: normal bowel sounds, non tender, soft, no organomegaly, no mass 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 Lymphatic: firm anterior cervical (L), firm anterior cervical (R), firm posterior cervical (L), firm posterior cervical (R) Laboratory Tests Test 01/31/17 05:45 01/31/17 10:45 White Blood Count 5.2 K/UL (4.8-10.8) Red Blood Count 4.17 M/UL (4.70-6.10) L Hemoglobin 13.3 G/DL (14.2-18.0) L Hematocrit 40.1 % (42.0-52.0) L Mean Corpuscular Volume 96 FL (80-99) Mean Corpuscular Hemoglobin 32.0 PG (27.0-31.0) H Mean Corpuscular Hemoglobin Concent 33.2 G/DL (32.0-36.0) Red Cell Distribution Width 12.5 % (11.6-14.8) Platelet Count 273 K/UL (150-450) Mean Platelet Volume 7.9 FL (6.5-10.1) Neutrophils (%) (Auto) 64.0 % (45.0-75.0) Lymphocytes (%) (Auto) 20.6 % (20.0-45.0) Monocytes (%) (Auto) 10.8 % (1.0-10.0) H Eosinophils (%) (Auto) 3.2 % (0.0-3.0) H Basophils (%) (Auto) 1.4 % (0.0-2.0) Sodium Level 138 MMOL/L (136-145) Potassium Level 4.2 MMOL/L (3.5-5.1) Chloride Level 104 MMOL/L (98-107) Carbon Dioxide Level 31 MMOL/L (21-32) Anion Gap 3 mmol/L (5-15) L Blood Urea Nitrogen 17 mg/dL (7-18) Creatinine 1.1 MG/DL (0.55-1.30) Estimat Glomerular Filtration Rate > 60 mL/min (>60) Glucose Level 105 MG/DL (74-106) Calcium Level 9.1 MG/DL (8.5-10.1) Vancomycin Level Trough 16.2 ug/mL (5.0-12.0) H Assessment/Plan Problem List: (1) Pneumonia Assessment & Plan: Continue vancomycin and meropenem per ID (2) HTN (hypertension) Assessment & Plan: Continue norvasc (3) Lung cancer Assessment & Plan: Probable mets to lymph nodes and ?liver. Await CT chest/ abdomen/pelvis. Await oncology consult. (4) Hypoxia Status: not improved WILLIAMS BELTRE Jan 31, 2017 12:45
--- NOTE | 2017-01-31 22:12 | General Progress Note ---
Assessment/Plan Assessment/Plan A/P #. Metastatic lung cancer, has not been treated in past --> biopsy done at [facility], obtain records --> imaging has been reviewed from before --> patient performance status is stable[facility] followup with palliative/hospice, does help with overall survival #. Anemia, mild at this time. Continue to monitor # Shortness of breath 2/2 lung cancer #. Chronic DVT BLE. Has been started on Xarelto 15 mg P.O. B.I.D Subjective Allergies: Coded Allergies: No Known Allergies (Unverified , 01/29/17) All Systems: reviewed and negative except above Subjective no events Objective Last 24 Hour Vital Signs Date Time Temp Pulse Resp B/P (MAP) Pulse Ox O2 Delivery O2 Flow Rate FiO2 01/31/17 20:18 98.2 35 23 112/45 94 Nasal Cannula 2.0 28 01/31/17 20:00 82 01/31/17 20:00 98.2 23 112/45 94 Nasal Cannula 2.0 01/31/17 18:52 97.5 01/31/17 16:10 97.5 70 19 124/53 Nasal Cannula 3.0 01/31/17 16:00 85 01/31/17 16:00 97.6 82 18 123/62 95 Nasal Cannula 2.0 01/31/17 12:58 97.2 77 18 128/68 96 01/31/17 12:00 84 01/31/17 12:00 Nasal Cannula 2.0 01/31/17 08:04 62 20 Nasal Cannula 2.0 28 01/31/17 08:00 82 01/31/17 08:00 96.8 71 19 125/64 Room Air 01/31/17 08:00 94 Room Air 01/31/17 04:00 97.3 43 22 113/71 94 Nasal Cannula 2.0 01/31/17 04:00 83 01/31/17 00:00 97.3 88 20 128/61 93 Nasal Cannula 2.0 01/31/17 00:00 88 Intake and Output 01/31/17 02/01/17 19:00 07:00 Intake Total 665 ml Balance 665 ml Intake Oral 360 ml IV Total 305 ml # Voids 4 Laboratory Tests 01/31/17 05:45: White Blood Count 5.2, Red Blood Count 4.17L, Hemoglobin 13.3L, Hematocrit 40.1L , Mean Corpuscular Volume 96, Mean Corpuscular Hemoglobin 32.0H, Mean Corpuscular Hemoglobin Concent 33.2, Red Cell Distribution Width 12.5, Platelet Count 273, Mean Platelet Volume 7.9, Neutrophils (%) (Auto) 64.0, Lymphocytes (% ) (Auto) 20.6, Monocytes (%) (Auto) 10.8H, Eosinophils (%) (Auto) 3.2H, Basophils (%) (Auto) 1.4, Sodium Level 138, Potassium Level 4.2, Chloride Level 104, Carbon Dioxide Level 31, Anion Gap 3L, Blood Urea Nitrogen 17, Creatinine 1.1, Estimat Glomerular Filtration Rate > 60, Glucose Level 105, Calcium Level 9.1 01/31/17 10:45: Vancomycin Level Trough 16.2H Height (Feet): 5 Height (Inches): 11.00 Weight (Pounds): 160 General Appearance: no apparent distress EENT: normal ENT inspection Neck: normal alignment Cardiovascular: normal peripheral pulses Respiratory/Chest: chest wall non-tender Extremities: normal range of motion Edema: mild edema Negrito Gloria Jan 31, 2017 22:12
[2017-02-01] MEDS: Meropenem 1 GM in NS 55 ML IVPB SCH ×3 (01:34→17:21)
[2017-02-01] MEDS: Morphine Sulfate 4mg/ml Inj IVP PRN ×4 (02:53→21:35)
[2017-02-01 04:00] VITALS: BP 112/45
[2017-02-01 08:04] VITALS: BP 120/71
--- NOTE | 2017-02-01 08:15 | Consultation ---
DATE OF CONSULTATION: 01/30/2017 NOTE: "POOR AUDIO QUALITY" HEMATOLOGY/ONCOLOGY CONSULTATION CONSULTING PHYSICIAN: Negrito Gloria M.D. REQUESTING PHYSICIAN: Williams Escobar M.D. and Luana Vasquez, nurse practitioner. IDENTIFYING DATA: Dear Dr. Escobar, Dr. Villegas, and Pedro, The patient is a pleasant 66-year-old male with past medical history significant for hypertension, former smoker, now with diagnosed state IV lung cancer, recently diagnosed at [facility], had a biopsy on 01/21/2017, found to have stage IV lung cancer. Complete workup completed of chest pain including cardiac catheterization. He initially was hypoxemic. No oxygen at home. The patient initially had CHF. Echocardiogram was pending. He was admitted to telemetry for further evaluation and treatment. Hematology service was consulted for further evaluation of his lungs. PAST MEDICAL HISTORY: cancer. SOCIAL HISTORY: Former smoker. No illicit drug use. No alcohol. ALLERGIES: No known drug allergies. REVIEW OF SYSTEMS: CONSTITUTIONAL: No fever, chills, or night sweats. SKIN: No rashes, bumps, or itching. HEENT: No headache, hearing or vision changes. BREASTS: No lumps, pain, or discharge. PULMONARY: No cough, sputum production, or shortness of breath. GASTROINTESTINAL: No nausea, vomiting, or diarrhea. GENITOURINARY: No dysuria, frequency, or urgency. MUSCULOSKELETAL: No joint swelling, muscle pain, or trauma. PHYSICAL EXAMINATION: VITAL SIGNS: Reviewed. GENERAL: No acute distress. PULMONARY: Decreased breath sounds. CARDIOVASCULAR: Regular rate. No S3 or S4. ABDOMEN: Soft and nontender. EXTREMITIES: There is 1+ edema. LABORATORY AND DIAGNOSTIC DATA: WBC of 6, hemoglobin 13, hematocrit 42, and platelet count 236,000. BUN of 17 and creatinine 1.1. Albumin of 2.5. ASSESSMENT AND RECOMMENDATIONS: 1. Stage IV lung cancer, diagnosed on 01/21/2017 at [facility]. Obtain a chest, abdomen, and pelvis CAT scan to further reevaluate the disease and obtain tissue from the [facility] . 2. . Closely monitor. 3. Anemia secondary to chronic disease. Closely monitor. Workup has been ordered. 4. Bilateral pleural effusion secondary to congestive heart failure versus lung cancer. 5. Shortness of breath, likely related to pneumonia versus congestive heart failure versus lung cancer. Continue to closely monitor. 6. Supportive care. At this time, we will do thoracentesis. The patient likely, if stable, may require chemotherapy as an outpatient and continue to closely monitor. If chemotherapy has not begun in the near future, may quickly decompensate and may require hospice again with his performance status. May require hospice if has a deterioration in performance status. I appreciate the consultation. Negrito Gloria M.D. DR: SILVERIO JOB#: [id number] CC:
[2017-02-01 08:25] LABS: BASOPHILS % (AUTO) 1.2 % (0.0-2.0); EOSINOPHILS % (AUTO) 3.5 % (0.0-3.0); LYMPHOCYTES % (AUTO) 19.1 % (20.0-45.0); MEAN CORPUSCULAR HEMOGLOBIN 31.6 PG (27.0-31.0); MEAN CORPUSCULAR HGB CONC 32.5 G/DL (32.0-36.0); MEAN CORPUSCULAR VOLUME 97 FL (80-99); MONOCYTES % (AUTO) 11.6 % (1.0-10.0); NEUTROPHILS % (AUTO) 64.6 % (45.0-75.0); PLATELET COUNT 277 K/UL (150-450); RED BLOOD COUNT 4.33 M/UL (4.70-6.10); RED CELL DISTRIBUTION WIDTH 12.5 % (11.6-14.8); WHITE BLOOD COUNT 5.4 K/UL (4.8-10.8)
[2017-02-01 08:33] LABS: ANION GAP 3 mmol/L (5-15); CALCIUM 9.4 MG/DL (8.5-10.1); CARBON DIOXIDE 31 MMOL/L (21-32); CHLORIDE 104 MMOL/L (98-107); GLOMERULAR FILTRATION RATE > 60 mL/min (>60); POTASSIUM 4.8 MMOL/L (3.5-5.1); SODIUM 138 MMOL/L (136-145)
[2017-02-01] MEDS ORDERED: Xarelto 15mg tab ORAL SCH (09:00)
--- NOTE | 2017-02-01 10:32 | Internal Med Progress Note ---
Subjective Date of Service: Feb 01, 2017 Physician Name Williams Beltre Attending Physician Williams Beltre Current Medications Medications (Trade) Dose Ordered Sig/Matthew Route PRN Reason Start Time Stop Time Status Last Admin Dose Admin Acetaminophen (Tylenol) 650 mg Q4H PRN ORAL FEVER 01/29/17 22:45 02/28/17 22:44 Albuterol/ Ipratropium (Albuterol/ Ipratropium) 3 ml EVERY 4 HOURS PRN HHN Shortness of Breath 01/29/17 22:45 02/03/17 22:44 01/30/17 07:56 Dextrose (Dextrose 50%) STAT PRN IV Hypoglycemia 01/29/17 22:45 02/28/17 22:44 Meropenem 1 gm/ Sodium Chloride 55 ml @ 110 mls/hr Q8H IVPB 01/30/17 17:00 02/04/17 16:59 02/01/17 08:56 Morphine Sulfate (Morphine Sulfate) 2 mg EVERY 4 HOURS PRN IVP Severe Pain (Pain Scale 7-10) 01/29/17 22:45 02/05/17 22:44 02/01/17 02:53 Ondansetron HCl (Zofran) 4 mg Q6H PRN IVP Nausea & Vomiting 01/29/17 22:45 02/28/17 22:44 Polyethylene Glycol (Miralax) 17 gm DAILYPRN PRN ORAL Constipation 01/29/17 22:45 02/28/17 22:44 Ranitidine HCl (Zantac) 150 mg BEDTIME ORAL 01/30/17 21:00 03/01/17 20:59 01/31/17 20:13 Rivaroxaban (Xarelto) 15 mg BID ORAL 02/01/17 09:00 02/14/17 18:01 Rivaroxaban (Xarelto) 20 mg DAILY ORAL 02/15/17 09:00 03/17/17 08:59 Vancomycin HCl (Vanco rx to dose) 1 ea DAILY PRN MISC PROT 01/29/17 23:15 02/28/17 23:14 Vancomycin HCl/ Dextrose 250 ml @ 125 mls/hr Q12H IVPB 01/29/17 23:30 02/03/17 23:29 01/31/17 22:52 Allergies: Coded Allergies: No Known Allergies (Unverified , 01/29/17) ROS Limited/Unobtainable: No Constitutional: Reports: no symptoms HEENT: Reports: no symptoms Cardiovascular: Reports: no symptoms Respiratory: Reports: shortness of breath Gastrointestinal/Abdominal: Reports: no symptoms Genitourinary: Reports: no symptoms Neurologic/Psychiatric: Reports: no symptoms Subjective 66 YO M admitted with metastatic lung cancer and shortness of breath. Now pneumonia. Await CT chest/abdomen/pelvis. Objective Last Vital Signs Date Time Temp Pulse Resp B/P (MAP) Pulse Ox O2 Delivery O2 Flow Rate FiO2 02/01/17 08:04 96.3 86 20 120/71 94 02/01/17 04:00 Nasal Cannula 2.0 28 Laboratory Tests Test 01/31/17 10:45 02/01/17 07:45 Vancomycin Level Trough 16.2 ug/mL (5.0-12.0) H White Blood Count 5.4 K/UL (4.8-10.8) Red Blood Count 4.33 M/UL (4.70-6.10) L Hemoglobin 13.7 G/DL (14.2-18.0) L Hematocrit 42.1 % (42.0-52.0) Mean Corpuscular Volume 97 FL (80-99) Mean Corpuscular Hemoglobin 31.6 PG (27.0-31.0) H Mean Corpuscular Hemoglobin Concent 32.5 G/DL (32.0-36.0) Red Cell Distribution Width 12.5 % (11.6-14.8) Platelet Count 277 K/UL (150-450) Mean Platelet Volume 8.0 FL (6.5-10.1) Neutrophils (%) (Auto) 64.6 % (45.0-75.0) Lymphocytes (%) (Auto) 19.1 % (20.0-45.0) L Monocytes (%) (Auto) 11.6 % (1.0-10.0) H Eosinophils (%) (Auto) 3.5 % (0.0-3.0) H Basophils (%) (Auto) 1.2 % (0.0-2.0) Sodium Level 138 MMOL/L (136-145) Potassium Level 4.8 MMOL/L (3.5-5.1) Chloride Level 104 MMOL/L (98-107) Carbon Dioxide Level 31 MMOL/L (21-32) Anion Gap 3 mmol/L (5-15) L Blood Urea Nitrogen 14 mg/dL (7-18) Creatinine 1.0 MG/DL (0.55-1.30) Estimat Glomerular Filtration Rate > 60 mL/min (>60) Glucose Level 89 MG/DL (74-106) Calcium Level 9.4 MG/DL (8.5-10.1) Microbiology Date/Time Source Procedure Growth Status 01/30/17 17:51 Blood Blood Culture - Preliminary NO GROWTH AFTER 24 HOURS Resulted 01/30/17 17:40 Blood Blood Culture - Preliminary NO GROWTH AFTER 24 HOURS Resulted 01/30/17 02:00 Sputum Gram Stain - Final Resulted 01/30/17 02:00 Sputum Culture - Preliminary Gram Negative Bacillus 1 Gram Negative Bacillus 2 Resulted 01/29/17 21:20 Nasal Nares MRSA Culture - Final NO METHICILLIN RESISTANT STAPH AUREUS... Complete 01/29/17 21:20 Rectum VRE Culture - Final NO VANCOMYCIN RESISTANT ENTEROCOCCUS ... 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 Await CT chest/ abdomen/pelvis. Attempt to obtain biopsy results from [facility]. See oncology consult. (4) Hypoxia Status: not improved WILLIAMS BELTRE Feb 01, 2017 10:32
[2017-02-01] MEDS: Vancomycin 1.5 GM/D5W 250ML IVPB SCH (11:04)
[2017-02-01 11:32] VITALS: BP 123/78
--- NOTE | 2017-02-01 11:33 | Infectious Diseases Prog Note ---
Assessment/Plan Assessment/Plan ASSESSMENT: #. The patient is a 66-year-old male with multiple history of pneumonia-rule out post obstructive pneumonia versus healthcare-associated pneumonia. -CXR 01/29: Basilar infiltrates either inflammatory or asymmetric edema noted. -sp cx GNB #1, #2 (id and sensi pending) #Afebrile, no leukocytosis #. History of Stage IV lung cancer. #. History of multiple adenopathy in the thoracic and neck. #. Rule out metastases to liver versus pancreas (the patient is a poor historian ). #. History of hypertension. PLAN: 1. D/C IV vancomycin #4 and continue meropenem #3 pending sp culturse -01/30 SP Cefepime #2 2. Monitor CBC. 3. Monitor BMP. 4. Monitor cultures (blood and sputum). 5. Based on the patient's clinical course and laboratories, we will do further recommendations. 6. Also, we will try to obtain the records from [facility]. Thank you, Dr. Villegas, for allowing me to participate in the care of this patient. I will follow the patient with you during this hospitalization. Subjective Allergies: Coded Allergies: No Known Allergies (Unverified , 01/29/17) Subjective afebrile no leukocytosis Bcx NTD Objective Vital Signs Last 24 Hour Vital Signs Date Time Temp Pulse Resp B/P (MAP) Pulse Ox O2 Delivery O2 Flow Rate FiO2 02/01/17 08:04 96.3 86 20 120/71 94 02/01/17 07:38 63 14 Room Air 2.0 28 02/01/17 04:00 98.2 35 23 112/45 94 Nasal Cannula 2.0 28 02/01/17 04:00 66 02/01/17 00:00 80 01/31/17 20:18 98.2 35 23 112/45 94 Nasal Cannula 2.0 28 01/31/17 20:00 82 01/31/17 20:00 98.2 23 112/45 94 Nasal Cannula 2.0 01/31/17 19:00 78 20 Nasal Cannula 2.0 28 01/31/17 18:52 97.5 01/31/17 16:10 97.5 70 19 124/53 Nasal Cannula 3.0 01/31/17 16:00 85 01/31/17 16:00 97.6 82 18 123/62 95 Nasal Cannula 2.0 01/31/17 12:58 97.2 77 18 128/68 96 01/31/17 12:00 84 01/31/17 12:00 Nasal Cannula 2.0 Height (Feet): 5 Height (Inches): 11.00 Weight (Pounds): 160 Objective HEENT: No pale conjunctivae. No icterus. NECK: No lymphadenopathy. CHEST: Coarse breathing sounds. HEART: S1 and S2. ABDOMEN: Soft. The patient has mild epigastric tenderness. The patient has also epigastric distention. EXTREMITIES: No cyanosis. NEUROLOGIC: Awake and alert. Microbiology Date/Time Source Procedure Growth Status 01/30/17 17:51 Blood Blood Culture - Preliminary NO GROWTH AFTER 24 HOURS Resulted 01/30/17 17:40 Blood Blood Culture - Preliminary NO GROWTH AFTER 24 HOURS Resulted 01/30/17 02:00 Sputum Gram Stain - Final Resulted 01/30/17 02:00 Sputum Culture - Preliminary Gram Negative Bacillus 1 Gram Negative Bacillus 2 Resulted 01/29/17 21:20 Nasal Nares MRSA Culture - Final NO METHICILLIN RESISTANT STAPH AUREUS... Complete 01/29/17 21:20 Rectum VRE Culture - Final NO VANCOMYCIN RESISTANT ENTEROCOCCUS ... Complete Laboratory Tests Test 02/01/17 07:45 White Blood Count 5.4 K/UL (4.8-10.8) Red Blood Count 4.33 M/UL (4.70-6.10) L Hemoglobin 13.7 G/DL (14.2-18.0) L Hematocrit 42.1 % (42.0-52.0) Mean Corpuscular Volume 97 FL (80-99) Mean Corpuscular Hemoglobin 31.6 PG (27.0-31.0) H Mean Corpuscular Hemoglobin Concent 32.5 G/DL (32.0-36.0) Red Cell Distribution Width 12.5 % (11.6-14.8) Platelet Count 277 K/UL (150-450) Mean Platelet Volume 8.0 FL (6.5-10.1) Neutrophils (%) (Auto) 64.6 % (45.0-75.0) Lymphocytes (%) (Auto) 19.1 % (20.0-45.0) L Monocytes (%) (Auto) 11.6 % (1.0-10.0) H Eosinophils (%) (Auto) 3.5 % (0.0-3.0) H Basophils (%) (Auto) 1.2 % (0.0-2.0) Sodium Level 138 MMOL/L (136-145) Potassium Level 4.8 MMOL/L (3.5-5.1) Chloride Level 104 MMOL/L (98-107) Carbon Dioxide Level 31 MMOL/L (21-32) Anion Gap 3 mmol/L (5-15) L Blood Urea Nitrogen 14 mg/dL (7-18) Creatinine 1.0 MG/DL (0.55-1.30) Estimat Glomerular Filtration Rate > 60 mL/min (>60) Glucose Level 89 MG/DL (74-106) Calcium Level 9.4 MG/DL (8.5-10.1) Current Medications Medications (Trade) Dose Ordered Sig/Matthew Route PRN Reason Start Time Stop Time Status Last Admin Dose Admin Acetaminophen (Tylenol) 650 mg Q4H PRN ORAL FEVER 01/29/17 22:45 02/28/17 22:44 Albuterol/ Ipratropium (Albuterol/ Ipratropium) 3 ml EVERY 4 HOURS PRN HHN Shortness of Breath 01/29/17 22:45 02/03/17 22:44 01/30/17 07:56 Dextrose (Dextrose 50%) STAT PRN IV Hypoglycemia 01/29/17 22:45 02/28/17 22:44 Meropenem 1 gm/ Sodium Chloride 55 ml @ 110 mls/hr Q8H IVPB 01/30/17 17:00 02/04/17 16:59 02/01/17 08:56 Morphine Sulfate (Morphine Sulfate) 2 mg EVERY 4 HOURS PRN IVP Severe Pain (Pain Scale 7-10) 01/29/17 22:45 02/05/17 22:44 02/01/17 02:53 Ondansetron HCl (Zofran) 4 mg Q6H PRN IVP Nausea & Vomiting 01/29/17 22:45 02/28/17 22:44 Polyethylene Glycol (Miralax) 17 gm DAILYPRN PRN ORAL Constipation 01/29/17 22:45 02/28/17 22:44 Ranitidine HCl (Zantac) 150 mg BEDTIME ORAL 01/30/17 21:00 03/01/17 20:59 01/31/17 20:13 Rivaroxaban (Xarelto) 15 mg BID ORAL 02/01/17 09:00 02/14/17 18:01 02/01/17 11:04 Rivaroxaban (Xarelto) 20 mg DAILY ORAL 02/15/17 09:00 03/17/17 08:59 Vancomycin HCl (Vanco rx to dose) 1 ea DAILY PRN MISC PROT 01/29/17 23:15 02/28/17 23:14 Vancomycin HCl/ Dextrose 250 ml @ 125 mls/hr Q12H IVPB 01/29/17 23:30 02/03/17 23:29 02/01/17 11:04 Neisha Reyes M.D. Feb 01, 2017 11:33
--- NOTE | 2017-02-01 11:35 | Diagnostic Imaging Report ---
Indication: SOB Technique: One view of the chest Comparison: 01/29/2017 Findings: Large bilateral pleural effusions have increased on both sides. Interstitial congestion and basilar atelectatic changes persists, stable.. Impression: Increased bilateral pleural fluid, over 3 days Stable bilateral interstitial congestive changes
--- NOTE | 2017-02-01 12:45 | Diagnostic Imaging Report ---
INDICATION: 66-year-old male former smoker, newly diagnosed stage IV lung cancer, dyspnea, generalized weakness TECHNIQUE: Patient ingested oral contrast. IV administration nonionic contrast. Multiphasic spiral acquisitions obtained through the chest, abdomen, and pelvis Multiplanar reconstructions were generated. Total dose length product 1408 mGycm. CTDIvol(s) 8, 202, 14, 11 mGy. Radiation dose was minimized using automated exposure control COMPARISON: None FINDINGS Chest: There are large pleural effusions bilaterally, approximately equal in size. In the left suprahilar region, there is a spiculated mass which measures 3.8 x 3.6 cm. This is adjacent and superior to the aortic arch. This significantly narrows the main and lobar branches of the left pulmonary artery. There is a bulla in the left lung apex as well as generalized hyperinflation of the left upper lobe. There is extensive fibrotic change of the posterior lateral left upper lobe. Denser opacities within the areas of fibrosis most likely reflect confluent opacities from the fibrosis, but other mass lesions are also a possibility. There is a left lower lobe mass as well, which measures approximately 5 x 4.2 cm. There is also considerable fibrosis of the central left lower lobe as well as areas of bronchiectasis. There is some compressive atelectasis related to the pleural fluid. There is a mass versus atelectasis in the right middle lobe adjacent to the right heart border which measures 4.5 x 1.5 cm in diameter. There is a small spiculated mass in the right middle lobe which measures 14 mm long axis dimension. There is right hilar adenopathy, with low-attenuation right hilar nodes measuring up to 3 cm in diameter. Extensive right hilar calcifications are noted. Reticular opacities in the right lower lobe likely reflect chronic fibrotic changes. There is compressive atelectasis of a significant portion of the right lower lobe. Posterior dependent atelectatic changes and areas of fibrosis are seen in the right upper lobe. There is an irregular opacity in the perihilar right upper lobe which measures 2.1 cm long axis dimension. In addition to the pleural fluid, there is generalized anasarca, with edema of the subcutaneous and mediastinal fat. The heart is mildly enlarged. No definite pericardial effusion. The right main pulmonary artery is dilated, measuring 32 mm in diameter. The left main pulmonary artery is nondilated, likely narrowed by the adjacent mass. There is mediastinal lymphadenopathy, with right paratracheal nodes measuring up to 3.3 cm long axis dimension. The included thyroid is somewhat hypoattenuating. No definite axillary or chest wall mass or adenopathy. There is occlusion of the right downstream subclavian and right innominate vein. The superior vena cava is reconstituted by the left innominate vein an azygos vein, and there are abundant venous collaterals present. No evidence of thoracic aortic aneurysm or dissection Abdomen pelvis: Anasarca is also present, with extensive edema of the subcutaneous, abdominal, and retroperitoneal fat, as well as a small amount of ascites fluid. The appendix is only questionably visualized. No definite findings to suggest acute appendicitis are evident. No evidence of diverticulosis or diverticulitis. No small bowel distention. No free intraperitoneal air. The liver demonstrates fatty change in the usual location adjacent to the falciform ligament. A 12 mm cyst is seen in segment 3. A 12 mm cyst is seen in segment 4A. Other subcentimeter low-attenuation lesions are demonstrated which are too small to characterize. There is some edema of the periportal fat. There is a focal 5 mm hyperenhancing area in segment 4 a which is seen on both imaging phases. The gallbladder is nondistended. No biliary ductal dilatation. The pancreas, spleen, adrenals, kidneys are all unremarkable. There are borderline enlarged retroperitoneal lym -- ph nodes. No pelvic mass or adenopathy. There is a mild wedge deformity of the L2 vertebral body. The bones are otherwise unremarkable except for mild degenerative lumbar facet disease. IMPRESSION: Left suprahilar spiculated lung mass, measuring 3.8 cm in diameter. This is consistent with stated clinical history of lung carcinoma Other masslike opacities in the lungs bilaterally, could represent synchronous lung carcinomas or areas of fibrotic change Mediastinal lymphadenopathy, likely metastatic Evidence of anasarca, with large bilateral pleural effusions, small amount of ascites, generalized edema of the subcutaneous, mediastinal, and abdominal fat COPD changes Evidence of scattered areas of chronic fibrotic change within both lungs Dilated right main pulmonary artery, consistent with pulmonary hypertension Narrowing of the left main pulmonary artery and lumbar branches by the left lung mass Occlusion of the right subclavian and right innominate veins. Evidence of abundant venous collaterals No acute abdominal process other than the ascites 5 mm hyperenhancing area in segment 4A on both phases. Most likely area of arterial portal venous shunting, small hepatocellular carcinoma not completely excludable but unlikely Borderline retroperitoneal lymphadenopathy, nonspecific L2 vertebral body wedge deformity, may reflect a compression fracture deformity of indeterminate age Liver cysts. Subcentimeter low-attenuation lesions which are too small to characterize, most likely benign cysts or bile hamartomas. No further followup necessary Other findings as noted, including degenerative lumbar spondylosis The CT scanner at [facility] is accredited by the [employer] and the scans are performed using protocols designed to limit radiation exposure to as low as reasonably achievable to attain images of sufficient resolution adequate for diagnostic evaluation.
[2017-02-01] MEDS ORDERED: Flu Vaccine Quadrivalent 0.5ml IM ONE (13:00)
[2017-02-01] MEDS ORDERED: Lidocaine 1% MPF 10mg/ml 5ml HHN PRN (14:45)
--- NOTE | 2017-02-01 14:48 | Pulmonology Progress Note ---
Assessment/Plan Problems: (1) Respiratory distress (2) Stage 4 lung cancer (3) Hypoxia (4) Pneumonia (5) Emphysema (6) Severe protein-calorie malnutrition Assessment/Plan sputum induction respiratory treatment antitussives lidocaine inhalation for cough add theophylin Subjective ROS Limited/Unobtainable: No Constitutional: Reports: no symptoms HEENT: Repors: no symptoms Allergies: Coded Allergies: No Known Allergies (Unverified , 01/29/17) Objective Last 24 Hour Vital Signs Date Time Temp Pulse Resp B/P (MAP) Pulse Ox O2 Delivery O2 Flow Rate FiO2 02/01/17 11:32 96.8 87 20 123/78 96 02/01/17 08:04 96.3 86 20 120/71 94 02/01/17 07:38 63 14 Room Air 2.0 28 02/01/17 04:00 98.2 35 23 112/45 94 Nasal Cannula 2.0 28 02/01/17 04:00 66 02/01/17 00:00 80 01/31/17 20:18 98.2 35 23 112/45 94 Nasal Cannula 2.0 28 01/31/17 20:00 82 01/31/17 20:00 98.2 23 112/45 94 Nasal Cannula 2.0 01/31/17 19:00 78 20 Nasal Cannula 2.0 28 01/31/17 18:52 97.5 01/31/17 16:10 97.5 70 19 124/53 Nasal Cannula 3.0 01/31/17 16:00 85 01/31/17 16:00 97.6 82 18 123/62 95 Nasal Cannula 2.0 Intake and Output 02/01/17 02/02/17 18:59 06:59 Intake Total 240 ml Balance 240 ml Intake Oral 240 ml General Appearance: cachetic HEENT: normocephalic, atraumatic Respiratory/Chest: chest wall non-tender, lungs clear Cardiovascular: normal peripheral pulses, normal rate Abdomen: normal bowel sounds, soft, non tender Genitourinary: normal external genitalia Extremities: no cyanosis Skin: no rash Neurologic/Psychiatric: binding dyer II-XII grossly normal Lymphatic: no neck adenopathy Microbiology Date/Time Source Procedure Growth Status 01/30/17 17:51 Blood Blood Culture - Preliminary NO GROWTH AFTER 24 HOURS Resulted 01/30/17 17:40 Blood Blood Culture - Preliminary NO GROWTH AFTER 24 HOURS Resulted 01/30/17 02:00 Sputum Gram Stain - Final Resulted 01/30/17 02:00 Sputum Culture - Preliminary Gram Negative Bacillus 1 Gram Negative Bacillus 2 Resulted 01/29/17 21:20 Nasal Nares MRSA Culture - Final NO METHICILLIN RESISTANT STAPH AUREUS... Complete 01/29/17 21:20 Rectum VRE Culture - Final NO VANCOMYCIN RESISTANT ENTEROCOCCUS ... Complete Laboratory Tests 02/01/17 07:45: White Blood Count 5.4, Red Blood Count 4.33L, Hemoglobin 13.7L, Hematocrit 42.1 , Mean Corpuscular Volume 97, Mean Corpuscular Hemoglobin 31.6H, Mean Corpuscular Hemoglobin Concent 32.5, Red Cell Distribution Width 12.5, Platelet Count 277, Mean Platelet Volume 8.0, Neutrophils (%) (Auto) 64.6, Lymphocytes (% ) (Auto) 19.1L, Monocytes (%) (Auto) 11.6H, Eosinophils (%) (Auto) 3.5H, Basophils (%) (Auto) 1.2, Sodium Level 138, Potassium Level 4.8, Chloride Level 104, Carbon Dioxide Level 31, Anion Gap 3L, Blood Urea Nitrogen 14, Creatinine 1.0, Estimat Glomerular Filtration Rate > 60, Glucose Level 89, Calcium Level 9.4 Current Medications Medications (Trade) Dose Ordered Sig/Matthew Route PRN Reason Start Time Stop Time Status Last Admin Dose Admin Acetaminophen (Tylenol) 650 mg Q4H PRN ORAL FEVER 01/29/17 22:45 02/28/17 22:44 Albuterol/ Ipratropium (Albuterol/ Ipratropium) 3 ml EVERY 4 HOURS PRN HHN Shortness of Breath 01/29/17 22:45 02/03/17 22:44 01/30/17 07:56 Dextrose (Dextrose 50%) STAT PRN IV Hypoglycemia 01/29/17 22:45 02/28/17 22:44 Lidocaine (Xylocaine 1% MPF 5ml) 10 ml Q4H PRN HHN cough 02/01/17 14:45 03/03/17 14:44 Meropenem 1 gm/ Sodium Chloride 55 ml @ 110 mls/hr Q8H IVPB 01/30/17 17:00 02/04/17 16:59 02/01/17 08:56 Morphine Sulfate (Morphine Sulfate) 2 mg EVERY 4 HOURS PRN IVP Severe Pain (Pain Scale 7-10) 01/29/17 22:45 02/05/17 22:44 02/01/17 12:30 Ondansetron HCl (Zofran) 4 mg Q6H PRN IVP Nausea & Vomiting 01/29/17 22:45 02/28/17 22:44 Polyethylene Glycol (Miralax) 17 gm DAILYPRN PRN ORAL Constipation 01/29/17 22:45 02/28/17 22:44 Promethazine HCl (Phenergan) 25 mg Q6H PRN IM Nausea & Vomiting 02/01/17 14:45 03/03/17 14:44 Ranitidine HCl (Zantac) 150 mg BEDTIME ORAL 01/30/17 21:00 03/01/17 20:59 01/31/17 20:13 Rivaroxaban (Xarelto) 15 mg BID ORAL 02/01/17 09:00 02/14/17 18:01 02/01/17 11:04 Rivaroxaban (Xarelto) 20 mg DAILY ORAL 02/15/17 09:00 03/17/17 08:59 HONEY BISHOP Feb 01, 2017 14:48
[2017-02-01] MEDS ORDERED: Promethazine/Codeine 5ml UD ORAL PRN (15:00)
[2017-02-01] MEDS: Theophylline ER 100mg ORAL SCH (15:20)
[2017-02-01 16:16] VITALS: BP 122/75
[2017-02-01 20:00] VITALS: BP 119/55
--- NOTE | 2017-02-01 21:25 | General Progress Note ---
Assessment/Plan Assessment/Plan A/P #. Metastatic lung cancer, has not been treated in past --> imaging has been reviewed --> patient performance status is stable, needs followup at [facility] --> followup with palliative/hospice, does help with overall survival for lung cancer patients --> Discussed with Dr. Villegas and Dr. Escobar #. Anemia, mild at this time. Continue to monitor # Shortness of breath 2/2 lung cancer #. Chronic DVT BLE. Has been started on Xarelto. Subjective Allergies: Coded Allergies: No Known Allergies (Unverified , 01/29/17) All Systems: reviewed and negative except above Subjective no events Objective Last 24 Hour Vital Signs Date Time Temp Pulse Resp B/P (MAP) Pulse Ox O2 Delivery O2 Flow Rate FiO2 02/01/17 20:24 64 20 2.0 28 02/01/17 20:00 97.7 49 23 119/55 Nasal Cannula 2.0 02/01/17 16:16 97.7 84 20 122/75 96 02/01/17 16:00 82 02/01/17 12:00 88 02/01/17 11:32 96.8 87 20 123/78 96 02/01/17 08:04 96.3 86 20 120/71 94 02/01/17 08:00 75 02/01/17 07:38 63 14 Room Air 2.0 28 02/01/17 04:00 98.2 35 23 112/45 94 Nasal Cannula 2.0 28 02/01/17 04:00 66 02/01/17 00:00 80 Intake and Output 02/01/17 02/02/17 19:00 07:00 Intake Total 480 ml Output Total 200 ml Balance 280 ml Intake Oral 480 ml Output Urine Total 200 ml Laboratory Tests 02/01/17 07:45: White Blood Count 5.4, Red Blood Count 4.33L, Hemoglobin 13.7L, Hematocrit 42.1 , Mean Corpuscular Volume 97, Mean Corpuscular Hemoglobin 31.6H, Mean Corpuscular Hemoglobin Concent 32.5, Red Cell Distribution Width 12.5, Platelet Count 277, Mean Platelet Volume 8.0, Neutrophils (%) (Auto) 64.6, Lymphocytes (% ) (Auto) 19.1L, Monocytes (%) (Auto) 11.6H, Eosinophils (%) (Auto) 3.5H, Basophils (%) (Auto) 1.2, Sodium Level 138, Potassium Level 4.8, Chloride Level 104, Carbon Dioxide Level 31, Anion Gap 3L, Blood Urea Nitrogen 14, Creatinine 1.0, Estimat Glomerular Filtration Rate > 60, Glucose Level 89, Calcium Level 9.4 Height (Feet): 5 Height (Inches): 11.00 Weight (Pounds): 160 General Appearance: no apparent distress EENT: normal ENT inspection Neck: non-tender, normal alignment Respiratory/Chest: respiratory distress Extremities: normal range of motion Negrito Gloria Feb 01, 2017 21:25
--- NOTE | 2017-02-01 23:41 | Consultation ---
History of Present Illness General Date patient seen: Feb 01, 2017 Chief Complaint: Dyspnea/Respdistress Referring physician: dr Crooks Reason for Consultation: lung Ca, resp distress Present Illness HPI 66-year-old male with past medical history significant for hypertension, former smoker, now with diagnosed state IV lung cancer, recently diagnosed at [facility], had a biopsy on 01/21/2017, found to have stage IV lung cancer. the pt is agitate and irritable. the pt is demanding. Allergies: Coded Allergies: No Known Allergies (Unverified , 01/29/17) Medication History Scheduled Amlodipine Besylate* (Amlodipine Besylate*), 2.5 MG ORAL DAILY, (Reported) Patient History Limited by: medical condition History Provided By: Patient, Medical Record, PMD Healthcare decision maker N Resuscitation status Full Code Advanced Directive on File No Past Medical/Surgical History Past Medical/Surgical History: (1) Lung cancer (2) Dyspnea (3) Tobacco abuse (4) HTN (hypertension) (5) Hypoxia (6) Pneumonia (7) Stage 4 lung cancer (8) Severe protein-calorie malnutrition (9) Respiratory distress (10) Emphysema Review of Systems Psychiatric: Reports: prior hx, anxiety, depressed feelings, emotional problems Physical Exam General Appearance: no apparent distress, alert Neurologic: alert, oriented x 3, responsive, depressed affect Last 24 Hour Vital Signs Date Time Temp Pulse Resp B/P (MAP) Pulse Ox O2 Delivery O2 Flow Rate FiO2 02/01/17 20:24 64 20 2.0 28 02/01/17 20:00 97.7 49 23 119/55 Nasal Cannula 2.0 02/01/17 16:16 97.7 84 20 122/75 96 02/01/17 16:00 82 02/01/17 12:00 88 02/01/17 11:32 96.8 87 20 123/78 96 02/01/17 08:04 96.3 86 20 120/71 94 02/01/17 08:00 75 02/01/17 07:38 63 14 Room Air 2.0 28 02/01/17 04:00 98.2 35 23 112/45 94 Nasal Cannula 2.0 28 02/01/17 04:00 66 02/01/17 00:00 80 Intake and Output 02/01/17 02/02/17 19:00 07:00 Intake Total 480 ml Output Total 200 ml Balance 280 ml Intake Oral 480 ml Output Urine Total 200 ml Laboratory Tests Test 02/01/17 07:45 White Blood Count 5.4 K/UL (4.8-10.8) Red Blood Count 4.33 M/UL (4.70-6.10) L Hemoglobin 13.7 G/DL (14.2-18.0) L Hematocrit 42.1 % (42.0-52.0) Mean Corpuscular Volume 97 FL (80-99) Mean Corpuscular Hemoglobin 31.6 PG (27.0-31.0) H Mean Corpuscular Hemoglobin Concent 32.5 G/DL (32.0-36.0) Red Cell Distribution Width 12.5 % (11.6-14.8) Platelet Count 277 K/UL (150-450) Mean Platelet Volume 8.0 FL (6.5-10.1) Neutrophils (%) (Auto) 64.6 % (45.0-75.0) Lymphocytes (%) (Auto) 19.1 % (20.0-45.0) L Monocytes (%) (Auto) 11.6 % (1.0-10.0) H Eosinophils (%) (Auto) 3.5 % (0.0-3.0) H Basophils (%) (Auto) 1.2 % (0.0-2.0) Sodium Level 138 MMOL/L (136-145) Potassium Level 4.8 MMOL/L (3.5-5.1) Chloride Level 104 MMOL/L (98-107) Carbon Dioxide Level 31 MMOL/L (21-32) Anion Gap 3 mmol/L (5-15) L Blood Urea Nitrogen 14 mg/dL (7-18) Creatinine 1.0 MG/DL (0.55-1.30) Estimat Glomerular Filtration Rate > 60 mL/min (>60) Glucose Level 89 MG/DL (74-106) Calcium Level 9.4 MG/DL (8.5-10.1) Height (Feet): 5 Height (Inches): 11.00 Weight (Pounds): 160 Medications Current Medications Medications (Trade) Dose Ordered Sig/Matthew Route PRN Reason Start Time Stop Time Status Last Admin Dose Admin Acetaminophen (Tylenol) 650 mg Q4H PRN ORAL FEVER 01/29/17 22:45 02/28/17 22:44 Albuterol/ Ipratropium (Albuterol/ Ipratropium) 3 ml EVERY 4 HOURS PRN HHN Shortness of Breath 01/29/17 22:45 02/03/17 22:44 01/30/17 07:56 Dextrose (Dextrose 50%) STAT PRN IV Hypoglycemia 01/29/17 22:45 02/28/17 22:44 Lidocaine (Xylocaine 1% MPF 5ml) 10 ml Q4H PRN HHN cough 02/01/17 14:45 03/03/17 14:44 Meropenem 1 gm/ Sodium Chloride 55 ml @ 110 mls/hr Q8H IVPB 01/30/17 17:00 02/04/17 16:59 02/01/17 17:21 Morphine Sulfate (Morphine Sulfate) 2 mg EVERY 4 HOURS PRN IVP Severe Pain (Pain Scale 7-10) 01/29/17 22:45 02/05/17 22:44 02/01/17 21:35 Ondansetron HCl (Zofran) 4 mg Q6H PRN IVP Nausea & Vomiting 01/29/17 22:45 02/28/17 22:44 Polyethylene Glycol (Miralax) 17 gm DAILYPRN PRN ORAL Constipation 01/29/17 22:45 02/28/17 22:44 Promethazine HCl (Phenergan) 25 mg Q6H PRN IM Nausea & Vomiting 02/01/17 14:45 03/03/17 14:44 Promethazine HCl/ Codeine (Phenergan with Codeine) 5 ml Q4H PRN ORAL For Cough 02/01/17 15:00 03/03/17 14:59 Ranitidine HCl (Zantac) 150 mg BEDTIME ORAL 01/30/17 21:00 03/01/17 20:59 02/01/17 21:34 Theophylline (Brett-Dur) 100 mg DAILY ORAL 02/01/17 15:00 03/03/17 14:59 02/01/17 15:20 Assessment/Plan Status: stable, progressing Assessment/Plan mdd agitation paxil 20mg qhs Kobi Rios M.D. Feb 01, 2017 23:41
[2017-02-02] VITALS: BP 125/99
[2017-02-02] MEDS: Meropenem 1 GM in NS 55 ML IVPB SCH ×3 (00:30→17:24)
[2017-02-02 04:00] VITALS: BP 126/83
[2017-02-02 08:21] VITALS: BP 107/58
[2017-02-02 08:48] LABS: BASOPHILS % (AUTO) 0.9 % (0.0-2.0); EOSINOPHILS % (AUTO) 1.8 % (0.0-3.0); MEAN CORPUSCULAR HEMOGLOBIN 31.8 PG (27.0-31.0); MEAN CORPUSCULAR HGB CONC 32.4 G/DL (32.0-36.0); MEAN CORPUSCULAR VOLUME 98 FL (80-99); MEAN PLATELET VOLUME 7.4 FL (6.5-10.1); MONOCYTES % (AUTO) 7.4 % (1.0-10.0); NEUTROPHILS % (AUTO) 73.9 % (45.0-75.0); PLATELET COUNT 238 K/UL (150-450); RED BLOOD COUNT 4.48 M/UL (4.70-6.10); RED CELL DISTRIBUTION WIDTH 12.4 % (11.6-14.8); WHITE BLOOD COUNT 6.2 K/UL (4.8-10.8)
[2017-02-02] MEDS: Theophylline ER 100mg ORAL SCH (08:54)
[2017-02-02 08:57] LABS: ALANINE AMINOTRANSFERASE 16 U/L (12-78); ALBUMIN/GLOBULIN RATIO 0.5 (1.0-2.7); ANION GAP 3 mmol/L (5-15); ASPARTATE AMINO TRANSFERASE 30 U/L (15-37); CARBON DIOXIDE 32 MMOL/L (21-32); CHLORIDE 102 MMOL/L (98-107); CREATININE 0.9 MG/DL (0.55-1.30); GLOMERULAR FILTRATION RATE > 60 mL/min (>60); POTASSIUM 5.2 MMOL/L (3.5-5.1); SODIUM 137 MMOL/L (136-145); TOTAL PROTEIN 7.3 G/DL (6.4-8.2)
--- NOTE | 2017-02-02 09:55 | General Progress Note ---
Assessment/Plan Assessment/Plan Assessment and Recs: #. Metastatic lung cancer, recently diagnosed on 01/21/17 at [facility] --> imaging has been reviewed --> patient performance status is stable, needs followup at [facility] --> followup with palliative/hospice, does help with overall survival for lung cancer patients --> Discussed with Dr. Villegas and Dr. Escobar --> may need PT/OT and palcement to SNIF #. Anemia, mild at this time. Continue to monitor # Shortness of breath 2/2 lung cancer #. Chronic DVT BLE. (superficial femoral vein is a deep vein) --> on Xarelto. Subjective Constitutional: Reports: no symptoms HEENT: Reports: no symptoms Cardiovascular: Reports: no symptoms Respiratory: Reports: no symptoms Gastrointestinal/Abdominal: Reports: no symptoms Genitourinary: Reports: no symptoms Neurologic/Psychiatric: Reports: anxiety Endocrine: Reports: no symptoms Hematologic/Lymphatic: Reports: anemia Allergies: Coded Allergies: No Known Allergies (Unverified , 01/29/17) Subjective no events, no chills or night sweats, no bleeding, have discussed his lung ca Objective Last 24 Hour Vital Signs Date Time Temp Pulse Resp B/P (MAP) Pulse Ox O2 Delivery O2 Flow Rate FiO2 02/02/17 08:21 96.1 87 20 107/58 95 02/02/17 04:00 82 02/02/17 04:00 97.5 83 23 126/83 99 Room Air 02/02/17 04:00 97.5 83 23 126/83 99 Nasal Cannula 2.0 28 02/02/17 00:00 81 02/02/17 00:00 97.7 73 21 125/99 92 Nasal Cannula 2.0 02/01/17 20:24 64 20 2.0 28 02/01/17 20:00 97.7 49 23 119/55 Nasal Cannula 2.0 02/01/17 20:00 96 02/01/17 16:16 97.7 84 20 122/75 96 02/01/17 16:00 82 02/01/17 12:00 88 02/01/17 11:32 96.8 87 20 123/78 96 Intake and Output 02/02/17 02/03/17 19:00 07:00 Intake Total 120 ml Balance 120 ml Intake Oral 120 ml Laboratory Tests 02/02/17 07:15: White Blood Count 6.2, Red Blood Count 4.48L, Hemoglobin 14.2, Hematocrit 44.0, Mean Corpuscular Volume 98, Mean Corpuscular Hemoglobin 31.8H, Mean Corpuscular Hemoglobin Concent 32.4, Red Cell Distribution Width 12.4, Platelet Count 238, Mean Platelet Volume 7.4, Neutrophils (%) (Auto) 73.9, Lymphocytes (%) (Auto) 16.0L, Monocytes (%) (Auto) 7.4, Eosinophils (%) (Auto) 1.8, Basophils (%) (Auto ) 0.9, Sodium Level 137, Potassium Level 5.2H, Chloride Level 102, Carbon Dioxide Level 32, Anion Gap 3L, Blood Urea Nitrogen 14, Creatinine 0.9, Estimat Glomerular Filtration Rate > 60, Glucose Level 92, Calcium Level 10.0, Total Bilirubin 0.3, Aspartate Amino Transf (AST/SGOT) 30, Alanine Aminotransferase ( ALT/SGPT) 16, Alkaline Phosphatase 58, Pro-B-Type Natriuretic Peptide 546H, Total Protein 7.3, Albumin 2.5L, Globulin 4.8, Albumin/Globulin Ratio 0.5L Height (Feet): 5 Height (Inches): 11.00 Weight (Pounds): 160 General Appearance: alert EENT: TMs normal Neck: normal alignment Cardiovascular: regular rhythm Respiratory/Chest: normal breath sounds Abdomen: soft Extremities: non-tender Edema: 1+ Leg (L), 1+ Leg (R) Edema: mild edema Neurologic: alert Skin: warm/dry Negrito Gloria Feb 02, 2017 09:55
--- NOTE | 2017-02-02 10:04 | Infectious Diseases Prog Note ---
Assessment/Plan Assessment/Plan ASSESSMENT: #. The patient is a 66-year-old male with multiple history of pneumonia-rule out post obstructive pneumonia versus healthcare-associated pneumonia. -CXR 01/29: Basilar infiltrates either inflammatory or asymmetric edema noted. -sp cx K.pna (S Cipro, bactrim, Ceftriaxone), S. maltophila (S bactrim or levaquin) and GNR #3 (id and sensi pending) -Bcx NTD #Afebrile, no leukocytosis #. Stage IV lung cancer. -CT Chest/abd/p w/: Left suprahilar spiculated lung mass, measuring 3.8 cm in diameter. This is consistent with stated clinical history of lung carcinoma. Other masslike opacities in the lungs bilaterally, could represent synchronous lung carcinomas or areas of fibrotic change. Mediastinal lymphadenopathy, likely metastatic. Evidence of anasarca, with large bilateral pleural effusions , small amount of ascites, generalized edema of the subcutaneous, mediastinal, and abdominal fat. COPD changes. Evidence of scattered areas of chronic fibrotic change within both lungs. Dilated right main pulmonary artery, consistent with pulmonary hypertension. Narrowing of the left main pulmonary artery and lumbar branches by the left lung mass. Occlusion of the right subclavian and right innominate veins. Evidence of abundant venous collaterals No acute abdominal process other than the ascites. 5 mm hyperenhancing area in segment 4A on both phases. Most likely area of arterial portal venous shunting, small hepatocellular carcinoma not completely excludable but unlikely. Borderline retroperitoneal lymphadenopathy, nonspecific. L2 vertebral body wedge deformity, may reflect a compression fracture deformity of indeterminate age. Liver cysts. Subcentimeter low-attenuation lesions which are too small tocharacterize, most likely benign cysts or bile hamartomas. #. History of multiple adenopathy in the thoracic and neck. #. History of hypertension. PLAN: 1. continue meropenem #4(abx d 07/05-10) pending ID GNR #3 and add Bactrim DS 3 tabs bid #03/10 for S.maltophilia pna; if all specimens susceptible to Levaquin or Bactrim, will simplify regimen to one abx -12/4 IV Vancomycin #4 -12/2 SP Cefepime #2 2. Monitor CBC. 3. Monitor BMP. 4. Monitor cultures (blood and sputum). 5. Based on the patient's clinical course and laboratories, we will do further recommendations. 6. Heme onc f/u Thank you, Dr. Villegas, for allowing me to participate in the care of this patient. I will follow the patient with you during this hospitalization. Subjective Allergies: Coded Allergies: No Known Allergies (Unverified , 01/29/17) Subjective afebrile no leukocytosis Bcx NTD Objective Vital Signs Last 24 Hour Vital Signs Date Time Temp Pulse Resp B/P (MAP) Pulse Ox O2 Delivery O2 Flow Rate FiO2 02/02/17 08:21 96.1 87 20 107/58 95 02/02/17 04:00 82 02/02/17 04:00 97.5 83 23 126/83 99 Room Air 02/02/17 04:00 97.5 83 23 126/83 99 Nasal Cannula 2.0 28 02/02/17 00:00 81 02/02/17 00:00 97.7 73 21 125/99 92 Nasal Cannula 2.0 02/01/17 20:24 64 20 2.0 28 02/01/17 20:00 97.7 49 23 119/55 Nasal Cannula 2.0 02/01/17 20:00 96 02/01/17 16:16 97.7 84 20 122/75 96 02/01/17 16:00 82 02/01/17 12:00 88 02/01/17 11:32 96.8 87 20 123/78 96 Height (Feet): 5 Height (Inches): 11.00 Weight (Pounds): 160 Objective HEENT: No pale conjunctivae. No icterus. NECK: No lymphadenopathy. CHEST: Coarse breathing sounds. HEART: S1 and S2. ABDOMEN: Soft. The patient has mild epigastric tenderness. The patient has also epigastric distention. EXTREMITIES: No cyanosis. NEUROLOGIC: Awake and alert. Microbiology Date/Time Source Procedure Growth Status 01/30/17 17:51 Blood Blood Culture - Preliminary NO GROWTH AFTER 48 HOURS Resulted 01/30/17 17:40 Blood Blood Culture - Preliminary NO GROWTH AFTER 48 HOURS Resulted Laboratory Tests Test 02/02/17 07:15 White Blood Count 6.2 K/UL (4.8-10.8) Red Blood Count 4.48 M/UL (4.70-6.10) L Hemoglobin 14.2 G/DL (14.2-18.0) Hematocrit 44.0 % (42.0-52.0) Mean Corpuscular Volume 98 FL (80-99) Mean Corpuscular Hemoglobin 31.8 PG (27.0-31.0) H Mean Corpuscular Hemoglobin Concent 32.4 G/DL (32.0-36.0) Red Cell Distribution Width 12.4 % (11.6-14.8) Platelet Count 238 K/UL (150-450) Mean Platelet Volume 7.4 FL (6.5-10.1) Neutrophils (%) (Auto) 73.9 % (45.0-75.0) Lymphocytes (%) (Auto) 16.0 % (20.0-45.0) L Monocytes (%) (Auto) 7.4 % (1.0-10.0) Eosinophils (%) (Auto) 1.8 % (0.0-3.0) Basophils (%) (Auto) 0.9 % (0.0-2.0) Sodium Level 137 MMOL/L (136-145) Potassium Level 5.2 MMOL/L (3.5-5.1) H Chloride Level 102 MMOL/L (98-107) Carbon Dioxide Level 32 MMOL/L (21-32) Anion Gap 3 mmol/L (5-15) L Blood Urea Nitrogen 14 mg/dL (7-18) Creatinine 0.9 MG/DL (0.55-1.30) Estimat Glomerular Filtration Rate > 60 mL/min (>60) Glucose Level 92 MG/DL (74-106) Calcium Level 10.0 MG/DL (8.5-10.1) Total Bilirubin 0.3 MG/DL (0.2-1.0) Aspartate Amino Transf (AST/SGOT) 30 U/L (15-37) Alanine Aminotransferase (ALT/SGPT) 16 U/L (12-78) Alkaline Phosphatase 58 U/L (46-116) Pro-B-Type Natriuretic Peptide 546 pg/mL (0-125) H Total Protein 7.3 G/DL (6.4-8.2) Albumin 2.5 G/DL (3.4-5.0) L Globulin 4.8 g/dL Albumin/Globulin Ratio 0.5 (1.0-2.7) L Current Medications Medications (Trade) Dose Ordered Sig/Matthew Route PRN Reason Start Time Stop Time Status Last Admin Dose Admin Acetaminophen (Tylenol) 650 mg Q4H PRN ORAL FEVER 01/29/17 22:45 02/28/17 22:44 Albuterol/ Ipratropium (Albuterol/ Ipratropium) 3 ml EVERY 4 HOURS PRN HHN Shortness of Breath 01/29/17 22:45 02/03/17 22:44 01/30/17 07:56 Dextrose (Dextrose 50%) STAT PRN IV Hypoglycemia 01/29/17 22:45 02/28/17 22:44 Lidocaine (Xylocaine 1% MPF 5ml) 10 ml Q4H PRN HHN cough 02/01/17 14:45 03/03/17 14:44 Meropenem 1 gm/ Sodium Chloride 55 ml @ 110 mls/hr Q8H IVPB 01/30/17 17:00 02/04/17 16:59 02/02/17 08:54 Morphine Sulfate (Morphine Sulfate) 2 mg EVERY 4 HOURS PRN IVP Severe Pain (Pain Scale 7-10) 01/29/17 22:45 02/05/17 22:44 02/01/17 21:35 Ondansetron HCl (Zofran) 4 mg Q6H PRN IVP Nausea & Vomiting 01/29/17 22:45 02/28/17 22:44 Paroxetine HCl (Paxil) 20 mg BEDTIME ORAL 02/02/17 21:00 03/04/17 20:59 Polyethylene Glycol (Miralax) 17 gm DAILYPRN PRN ORAL Constipation 01/29/17 22:45 02/28/17 22:44 Promethazine HCl (Phenergan) 25 mg Q6H PRN IM Nausea & Vomiting 02/01/17 14:45 03/03/17 14:44 Promethazine HCl/ Codeine (Phenergan with Codeine) 5 ml Q4H PRN ORAL For Cough 02/01/17 15:00 03/03/17 14:59 Ranitidine HCl (Zantac) 150 mg BEDTIME ORAL 01/30/17 21:00 03/01/17 20:59 02/01/17 21:34 Theophylline (Brett-Dur) 100 mg DAILY ORAL 02/01/17 15:00 03/03/17 14:59 02/02/17 08:54 Neisha Reyes M.D. Feb 02, 2017 10:04
--- NOTE | 2017-02-02 10:41 | Diagnostic Imaging Report ---
APPROVED REPORT CPT Code: 91381 Present Symptoms Comments: R/O DVT RIGHT LEG: Venous imaging reveals chronic thrombus in the superficial femoral vein. Remainder of the deep venous system is within normal limits. There is no evidence of thrombus within the common femoral, popliteal or tibial segments. The greater saphenous vein is also within normal limits. Doppler indicates normal spontaneous flow within these segments. LEFT LEG: Venous imaging reveals a patent deep venous system. There is no evidence of thrombus within the femoral, popliteal or tibial segments. The greater saphenous vein is also within normal limits. Doppler indicates normal spontaneous flow within these segments. There is no evidence of acute deep vein thrombosis. Incidental finding: Enlarged bakers cyst noted at the right popliteal vein level, measuring (7.3 cm x 2.0 cm).
[2017-02-02 11:26] VITALS: BP 118/86
[2017-02-02] MEDS: Morphine Sulfate 4mg/ml Inj IVP PRN (12:09)
[2017-02-02] MEDS: Bactrim DS (160mg/800mg) tab ORAL SCH ×2 (12:10→20:44)
--- NOTE | 2017-02-02 12:12 | Pulmonology Progress Note ---
Assessment/Plan Problems: (1) Respiratory distress (2) Stage 4 lung cancer (3) Hypoxia (4) Pneumonia (5) Emphysema (6) Severe protein-calorie malnutrition Assessment/Plan sputum induction respiratory treatment antitussives lidocaine inhalation for cough add theophylin increase morphine IV add Methasone low dose d/w with pt and his ex- about plan of care. Subjective ROS Limited/Unobtainable: No Constitutional: Reports: no symptoms HEENT: Repors: no symptoms Respiratory: Reports: no symptoms Allergies: Coded Allergies: No Known Allergies (Unverified , 01/29/17) Objective Last 24 Hour Vital Signs Date Time Temp Pulse Resp B/P (MAP) Pulse Ox O2 Delivery O2 Flow Rate FiO2 02/02/17 11:26 96.8 84 20 118/86 97 02/02/17 08:21 96.1 87 20 107/58 95 02/02/17 07:15 60 20 2.0 28 02/02/17 04:00 82 02/02/17 04:00 97.5 83 23 126/83 99 Room Air 02/02/17 04:00 97.5 83 23 126/83 99 Nasal Cannula 2.0 28 02/02/17 00:00 81 02/02/17 00:00 97.7 73 21 125/99 92 Nasal Cannula 2.0 02/01/17 20:24 64 20 2.0 28 02/01/17 20:00 97.7 49 23 119/55 Nasal Cannula 2.0 02/01/17 20:00 96 02/01/17 16:16 97.7 84 20 122/75 96 02/01/17 16:00 82 Intake and Output 02/02/17 02/03/17 19:00 07:00 Intake Total 220 ml Balance 220 ml Intake Oral 220 ml General Appearance: WD/WN HEENT: normocephalic, atraumatic Respiratory/Chest: chest wall non-tender, lungs clear Cardiovascular: normal peripheral pulses, normal rate Genitourinary: normal external genitalia Extremities: no cyanosis Skin: no rash Microbiology Date/Time Source Procedure Growth Status 01/30/17 17:51 Blood Blood Culture - Preliminary NO GROWTH AFTER 48 HOURS Resulted 01/30/17 17:40 Blood Blood Culture - Preliminary NO GROWTH AFTER 48 HOURS Resulted Laboratory Tests 02/02/17 07:15: White Blood Count 6.2, Red Blood Count 4.48L, Hemoglobin 14.2, Hematocrit 44.0, Mean Corpuscular Volume 98, Mean Corpuscular Hemoglobin 31.8H, Mean Corpuscular Hemoglobin Concent 32.4, Red Cell Distribution Width 12.4, Platelet Count 238, Mean Platelet Volume 7.4, Neutrophils (%) (Auto) 73.9, Lymphocytes (%) (Auto) 16.0L, Monocytes (%) (Auto) 7.4, Eosinophils (%) (Auto) 1.8, Basophils (%) (Auto ) 0.9, Sodium Level 137, Potassium Level 5.2H, Chloride Level 102, Carbon Dioxide Level 32, Anion Gap 3L, Blood Urea Nitrogen 14, Creatinine 0.9, Estimat Glomerular Filtration Rate > 60, Glucose Level 92, Calcium Level 10.0, Total Bilirubin 0.3, Aspartate Amino Transf (AST/SGOT) 30, Alanine Aminotransferase ( ALT/SGPT) 16, Alkaline Phosphatase 58, Pro-B-Type Natriuretic Peptide 546H, Total Protein 7.3, Albumin 2.5L, Globulin 4.8, Albumin/Globulin Ratio 0.5L Current Medications Medications (Trade) Dose Ordered Sig/Matthew Route PRN Reason Start Time Stop Time Status Last Admin Dose Admin Acetaminophen (Tylenol) 650 mg Q4H PRN ORAL FEVER 01/29/17 22:45 02/28/17 22:44 Albuterol/ Ipratropium (Albuterol/ Ipratropium) 3 ml EVERY 4 HOURS PRN HHN Shortness of Breath 01/29/17 22:45 02/03/17 22:44 01/30/17 07:56 Dextrose (Dextrose 50%) STAT PRN IV Hypoglycemia 01/29/17 22:45 02/28/17 22:44 Lidocaine (Xylocaine 1% MPF 5ml) 10 ml Q4H PRN HHN cough 02/01/17 14:45 03/03/17 14:44 Meropenem 1 gm/ Sodium Chloride 55 ml @ 110 mls/hr Q8H IVPB 01/30/17 17:00 02/04/17 16:59 02/02/17 08:54 Morphine Sulfate (Morphine Sulfate) 2 mg EVERY 4 HOURS PRN IVP Severe Pain (Pain Scale 7-10) 01/29/17 22:45 02/05/17 22:44 02/01/17 21:35 Ondansetron HCl (Zofran) 4 mg Q6H PRN IVP Nausea & Vomiting 01/29/17 22:45 02/28/17 22:44 Paroxetine HCl (Paxil) 20 mg BEDTIME ORAL 02/02/17 21:00 03/04/17 20:59 Polyethylene Glycol (Miralax) 17 gm DAILYPRN PRN ORAL Constipation 01/29/17 22:45 02/28/17 22:44 Promethazine HCl (Phenergan) 25 mg Q6H PRN IM Nausea & Vomiting 02/01/17 14:45 03/03/17 14:44 Promethazine HCl/ Codeine (Phenergan with Codeine) 5 ml Q4H PRN ORAL For Cough 02/01/17 15:00 03/03/17 14:59 Ranitidine HCl (Zantac) 150 mg BEDTIME ORAL 01/30/17 21:00 03/01/17 20:59 02/01/17 21:34 Theophylline (Brett-Dur) 100 mg DAILY ORAL 02/01/17 15:00 03/03/17 14:59 02/02/17 08:54 Trimethoprim/ Sulfamethoxazole (Bactrim-DS) 3 ea Q12HR ORAL 02/02/17 10:00 02/09/17 09:59 HONEY BISHOP Feb 02, 2017 12:12
[2017-02-02] MEDS ORDERED: Morphine Sulfate 4mg/ml Inj IVP PRN (12:15)
--- NOTE | 2017-02-02 14:50 | General Progress Note ---
Assessment/Plan Status: doing well, stable, progressing Subjective Neurologic/Psychiatric: Reports: anxiety, depressed, emotional problems Allergies: Coded Allergies: No Known Allergies (Unverified , 01/29/17) Subjective the pt is doing better less agitated Objective Last 24 Hour Vital Signs Date Time Temp Pulse Resp B/P (MAP) Pulse Ox O2 Delivery O2 Flow Rate FiO2 02/02/17 12:00 86 02/02/17 11:26 96.8 84 20 118/86 97 02/02/17 08:21 96.1 87 20 107/58 95 02/02/17 08:00 93 02/02/17 07:15 60 20 2.0 28 02/02/17 04:00 82 02/02/17 04:00 97.5 83 23 126/83 99 Room Air 02/02/17 04:00 97.5 83 23 126/83 99 Nasal Cannula 2.0 28 02/02/17 00:00 81 02/02/17 00:00 97.7 73 21 125/99 92 Nasal Cannula 2.0 02/01/17 20:24 64 20 2.0 28 02/01/17 20:00 97.7 49 23 119/55 Nasal Cannula 2.0 02/01/17 20:00 96 02/01/17 16:16 97.7 84 20 122/75 96 02/01/17 16:00 82 Intake and Output 02/02/17 02/03/17 19:00 07:00 Intake Total 220 ml Balance 220 ml Intake Oral 220 ml Laboratory Tests 02/02/17 07:15: White Blood Count 6.2, Red Blood Count 4.48L, Hemoglobin 14.2, Hematocrit 44.0, Mean Corpuscular Volume 98, Mean Corpuscular Hemoglobin 31.8H, Mean Corpuscular Hemoglobin Concent 32.4, Red Cell Distribution Width 12.4, Platelet Count 238, Mean Platelet Volume 7.4, Neutrophils (%) (Auto) 73.9, Lymphocytes (%) (Auto) 16.0L, Monocytes (%) (Auto) 7.4, Eosinophils (%) (Auto) 1.8, Basophils (%) (Auto ) 0.9, Sodium Level 137, Potassium Level 5.2H, Chloride Level 102, Carbon Dioxide Level 32, Anion Gap 3L, Blood Urea Nitrogen 14, Creatinine 0.9, Estimat Glomerular Filtration Rate > 60, Glucose Level 92, Calcium Level 10.0, Total Bilirubin 0.3, Aspartate Amino Transf (AST/SGOT) 30, Alanine Aminotransferase ( ALT/SGPT) 16, Alkaline Phosphatase 58, Pro-B-Type Natriuretic Peptide 546H, Total Protein 7.3, Albumin 2.5L, Globulin 4.8, Albumin/Globulin Ratio 0.5L Height (Feet): 5 Height (Inches): 11.00 Weight (Pounds): 160 General Appearance: WD/WN, no apparent distress, alert, overweight Neurologic: alert, oriented x 3, responsive, normal mood/affect Kobi Rios M.D. Feb 02, 2017 14:49
[2017-02-02 15:45] VITALS: BP 119/76
--- NOTE | 2017-02-02 17:04 | Internal Med Progress Note ---
Subjective Date of Service: Feb 02, 2017 Physician Name Williams Beltre Attending Physician Williams Beltre Current Medications Medications (Trade) Dose Ordered Sig/Matthew Route PRN Reason Start Time Stop Time Status Last Admin Dose Admin Acetaminophen (Tylenol) 650 mg Q4H PRN ORAL FEVER 01/29/17 22:45 02/28/17 22:44 Albuterol/ Ipratropium (Albuterol/ Ipratropium) 3 ml EVERY 4 HOURS PRN HHN Shortness of Breath 01/29/17 22:45 02/03/17 22:44 01/30/17 07:56 Dextrose (Dextrose 50%) STAT PRN IV Hypoglycemia 01/29/17 22:45 02/28/17 22:44 Lidocaine (Xylocaine 1% MPF 5ml) 10 ml Q4H PRN HHN cough 02/01/17 14:45 03/03/17 14:44 Meropenem 1 gm/ Sodium Chloride 55 ml @ 110 mls/hr Q8H IVPB 01/30/17 17:00 02/04/17 16:59 02/02/17 08:54 Methadone HCl (Methadone HCl) 10 mg EVERY 12 HOURS ORAL 02/02/17 12:15 02/09/17 12:14 02/02/17 15:39 Morphine Sulfate (Morphine Sulfate) 4 mg Q4H PRN IVP Severe Pain (Pain Scale 7-10) 02/02/17 12:15 02/09/17 12:14 Ondansetron HCl (Zofran) 4 mg Q6H PRN IVP Nausea & Vomiting 01/29/17 22:45 02/28/17 22:44 Paroxetine HCl (Paxil) 20 mg BEDTIME ORAL 02/02/17 21:00 03/04/17 20:59 Polyethylene Glycol (Miralax) 17 gm DAILYPRN PRN ORAL Constipation 01/29/17 22:45 02/28/17 22:44 Promethazine HCl (Phenergan) 25 mg Q6H PRN IM Nausea & Vomiting 02/01/17 14:45 03/03/17 14:44 Promethazine HCl/ Codeine (Phenergan with Codeine) 5 ml Q4H PRN ORAL For Cough 02/01/17 15:00 03/03/17 14:59 Ranitidine HCl (Zantac) 150 mg BEDTIME ORAL 01/30/17 21:00 03/01/17 20:59 02/01/17 21:34 Theophylline (Brett-Dur) 100 mg DAILY ORAL 02/01/17 15:00 03/03/17 14:59 02/02/17 08:54 Trimethoprim/ Sulfamethoxazole (Bactrim-DS) 3 ea Q12HR ORAL 02/02/17 10:00 02/09/17 09:59 02/02/17 12:10 Allergies: Coded Allergies: No Known Allergies (Unverified , 01/29/17) ROS Limited/Unobtainable: No Constitutional: Reports: no symptoms HEENT: Reports: no symptoms Cardiovascular: Reports: no symptoms Respiratory: Reports: shortness of breath Gastrointestinal/Abdominal: Reports: no symptoms Genitourinary: Reports: no symptoms Neurologic/Psychiatric: Reports: no symptoms Subjective 66 YO M admitted with metastatic lung cancer and shortness of breath. Now pneumonia. Patient requests discharge home with home health. Await biopsy result from [facility] Objective Last Vital Signs Date Time Temp Pulse Resp B/P (MAP) Pulse Ox O2 Delivery O2 Flow Rate FiO2 02/02/17 15:45 96.3 110 20 119/76 97 02/02/17 07:15 2.0 28 02/02/17 04:00 Room Air Laboratory Tests Test 02/02/17 07:15 White Blood Count 6.2 K/UL (4.8-10.8) Red Blood Count 4.48 M/UL (4.70-6.10) L Hemoglobin 14.2 G/DL (14.2-18.0) Hematocrit 44.0 % (42.0-52.0) Mean Corpuscular Volume 98 FL (80-99) Mean Corpuscular Hemoglobin 31.8 PG (27.0-31.0) H Mean Corpuscular Hemoglobin Concent 32.4 G/DL (32.0-36.0) Red Cell Distribution Width 12.4 % (11.6-14.8) Platelet Count 238 K/UL (150-450) Mean Platelet Volume 7.4 FL (6.5-10.1) Neutrophils (%) (Auto) 73.9 % (45.0-75.0) Lymphocytes (%) (Auto) 16.0 % (20.0-45.0) L Monocytes (%) (Auto) 7.4 % (1.0-10.0) Eosinophils (%) (Auto) 1.8 % (0.0-3.0) Basophils (%) (Auto) 0.9 % (0.0-2.0) Sodium Level 137 MMOL/L (136-145) Potassium Level 5.2 MMOL/L (3.5-5.1) H Chloride Level 102 MMOL/L (98-107) Carbon Dioxide Level 32 MMOL/L (21-32) Anion Gap 3 mmol/L (5-15) L Blood Urea Nitrogen 14 mg/dL (7-18) Creatinine 0.9 MG/DL (0.55-1.30) Estimat Glomerular Filtration Rate > 60 mL/min (>60) Glucose Level 92 MG/DL (74-106) Calcium Level 10.0 MG/DL (8.5-10.1) Total Bilirubin 0.3 MG/DL (0.2-1.0) Aspartate Amino Transf (AST/SGOT) 30 U/L (15-37) Alanine Aminotransferase (ALT/SGPT) 16 U/L (12-78) Alkaline Phosphatase 58 U/L (46-116) Pro-B-Type Natriuretic Peptide 546 pg/mL (0-125) H Total Protein 7.3 G/DL (6.4-8.2) Albumin 2.5 G/DL (3.4-5.0) L Globulin 4.8 g/dL Albumin/Globulin Ratio 0.5 (1.0-2.7) L Microbiology Date/Time Source Procedure Growth Status 01/30/17 17:51 Blood Blood Culture - Preliminary NO GROWTH AFTER 48 HOURS Resulted 01/30/17 17:40 Blood Blood Culture - Preliminary NO GROWTH AFTER 48 HOURS Resulted 02/01/17 17:40 Sputum Gram Stain - Final Resulted 02/01/17 17:40 Sputum Sputum Culture Pending Resulted Intake and Output 02/02/17 02/03/17 19:00 07:00 Intake Total 460 ml Balance 460 ml Intake Oral 460 ml Objective General Appearance: WD/WN, no apparent distress, alert EENT: PERRL/EOMI, normal ENT inspection Neck: non-tender, normal alignment, supple, normal inspection Cardiovascular: normal peripheral pulses, normal rate, regular rhythm, no gallop/murmur, no JVD Respiratory/Chest: respiratory distress, crackles/rales, rhonchi - bilaterally , expiratory wheezing Abdomen: normal bowel sounds, non tender, soft, no organomegaly, no mass Neurologic: skills instructor II-XII grossly normal Lymphatic: firm anterior cervical (L), firm anterior cervical (R), firm posterior cervical (L), firm posterior cervical (R) Assessment/Plan Problem List: (1) Pneumonia Assessment & Plan: Continue vancomycin and meropenem per ID (2) HTN (hypertension) Assessment & Plan: Continue norvasc (3) Lung cancer Assessment & Plan: Left lung with Mets to lymph nodes-see CT result. Await biopsy results from [facility]. See oncology consult. (4) Hypoxia Status: stable Assessment/Plan Discharge plan: home with home health per patient request WILLIAMS BELTRE Feb 02, 2017 17:04
[2017-02-02 20:00] VITALS: BP 125/60
[2017-02-02] MEDS ORDERED: Tubing IV Secondary IV ONE (20:43)
[2017-02-02] MEDS ORDERED: NS 500ML ONE (20:43)
[2017-02-02] MEDS: PARoxetine 20mg tab ORAL SCH (20:44)
[2017-02-03 00:04] VITALS: BP 125/75
[2017-02-03] MEDS: Meropenem 1 GM in NS 55 ML IVPB SCH ×2 (00:50→09:43)
[2017-02-03] MEDS: Albuterol/Ipratropium 3ml neb HHN PRN ×3 (05:29→21:38)
[2017-02-03] MEDS ORDERED: Morphine Sulfate 2mg/ml Inj IVP PRN (07:00)
[2017-02-03] MEDS ORDERED: Haloperidol 5mg/ml Inj IVPB PRN ×2 (07:15→15:15)
[2017-02-03 08:09] LABS: MEAN CORPUSCULAR HEMOGLOBIN 30.4 PG (27.0-31.0); MEAN CORPUSCULAR HGB CONC 30.1 G/DL (32.0-36.0); MEAN CORPUSCULAR VOLUME 101 FL (80-99); MEAN PLATELET VOLUME 7.4 FL (6.5-10.1); PLATELET COUNT 235 K/UL (150-450); RED BLOOD COUNT 4.42 M/UL (4.70-6.10); RED CELL DISTRIBUTION WIDTH 13.1 % (11.6-14.8); WHITE BLOOD COUNT 13.5 K/UL (4.8-10.8)
[2017-02-03 08:40] LABS: BAND NEUTROPHILS % (MANUAL) 0 % (0-8); BASOPHILS % (MANUAL) 0 % (0-2); EOSINOPHILS % (MANUAL) 0 % (0-3); LYMPHOCYTES % (MANUAL) 4 % (20-45); MACROCYTES 1+; NEUTROPHILS % (MANUAL) 89 % (45-75); PLATELET ESTIMATE ADEQUATE; PLATELET MORPHOLOGY NORMAL; TOTAL CELLS COUNTED 100
[2017-02-03 08:41] LABS: ANION GAP 10 mmol/L (5-15); CALCIUM 10.2 MG/DL (8.5-10.1); CARBON DIOXIDE 29 MMOL/L (21-32); CHLORIDE 100 MMOL/L (98-107); CREATININE 1.8 MG/DL (0.55-1.30); GLOMERULAR FILTRATION RATE 46.3 mL/min (>60); POTASSIUM 4.4 MMOL/L (3.5-5.1); SODIUM 139 MMOL/L (136-145)
[2017-02-03 08:49] VITALS: BP 138/92
[2017-02-03] MEDS: Bactrim DS (160mg/800mg) tab ORAL SCH (09:00)
[2017-02-03 09:20] LABS: CA 125 300.4 U/mL (Not Estab.); CA15-3 12.5 U/mL (0.0-25.0)
[2017-02-03] MEDS: Theophylline ER 100mg ORAL SCH (09:42)
--- NOTE | 2017-02-03 10:08 | General Progress Note ---
Assessment/Plan Assessment/Plan Assessment and Recs: #. Metastatic lung cancer, recently diagnosed on 01/21/17 at [facility] --> imaging has been reviewed --> today appears very confused, tired potentially opiate administration related --> patient performance status is stable, needs followup [facility] --> followup with palliative/hospice, does help with overall survival for lung cancer patients --> Discussed with Dr. Villegas and Dr. Escobar --> may need PT/OT and palcement to SNIF #. Anemia, mild at this time. Continue to monitor # Shortness of breath 2/2 lung cancer #. Chronic DVT BLE. (superficial femoral vein is a deep vein) --> on Xarelto. Subjective Constitutional: Reports: no symptoms HEENT: Reports: no symptoms Cardiovascular: Reports: no symptoms Respiratory: Reports: no symptoms Gastrointestinal/Abdominal: Reports: no symptoms Genitourinary: Reports: no symptoms Neurologic/Psychiatric: Reports: no symptoms Endocrine: Reports: no symptoms Hematologic/Lymphatic: Reports: anemia Allergies: Coded Allergies: No Known Allergies (Unverified , 01/29/17) Subjective no events, no chills or night sweats, no bleeding, have discussed his lung ca diagnosis Objective Last 24 Hour Vital Signs Date Time Temp Pulse Resp B/P (MAP) Pulse Ox O2 Delivery O2 Flow Rate FiO2 02/03/17 09:20 95 Venturi Mask 14.0 55 02/03/17 09:19 Venturi Mask 14.0 55 02/03/17 08:49 97.3 114 26 138/92 93 02/03/17 08:36 62 22 95 Venturi Mask 14.0 55 02/03/17 07:46 55 20 Venturi Mask 14.0 55 02/03/17 05:33 70 20 95 Nasal Cannula 2.0 28 02/03/17 05:30 73 20 93 Nasal Cannula 2.0 28 02/03/17 04:00 111 02/03/17 00:04 97.0 50 20 125/75 93 Nasal Cannula 02/03/17 00:00 100 Nasal Cannula 2.0 02/03/17 00:00 100 02/02/17 20:39 75 20 Nasal Cannula 2.0 28 02/02/17 20:00 88 Nasal Cannula 2.0 02/02/17 20:00 97.3 47 20 125/60 98 Nasal Cannula 02/02/17 20:00 88 02/02/17 16:00 86 02/02/17 15:45 96.3 110 20 119/76 97 02/02/17 12:00 86 02/02/17 11:26 96.8 84 20 118/86 97 Laboratory Tests 02/03/17 07:20: White Blood Count 13.5#H, Red Blood Count 4.42L, Hemoglobin 13.4L, Hematocrit 44.6, Mean Corpuscular Volume 101H, Mean Corpuscular Hemoglobin 30.4, Mean Corpuscular Hemoglobin Concent 30.1L, Red Cell Distribution Width 13.1, Platelet Count 235, Mean Platelet Volume 7.4, Neutrophils (%) (Auto) , Lymphocytes (%) (Auto) , Monocytes (%) (Auto) , Eosinophils (%) (Auto) , Basophils (%) (Auto) , Differential Total Cells Counted 100, Neutrophils % ( Manual) 89H, Lymphocytes % (Manual) 4L, Monocytes % (Manual) 7, Eosinophils % ( Manual) 0, Basophils % (Manual) 0, Band Neutrophils 0, Platelet Estimate Adequate, Platelet Morphology Normal, Macrocytosis 1+, Sodium Level 139, Potassium Level 4.4, Chloride Level 100, Carbon Dioxide Level 29, Anion Gap 10, Blood Urea Nitrogen 25H, Creatinine 1.8#H, Estimat Glomerular Filtration Rate 46.3, Glucose Level 72L, Calcium Level 10.2H Height (Feet): 5 Height (Inches): 11.00 Weight (Pounds): 160 General Appearance: alert EENT: normal ENT inspection Neck: supple Cardiovascular: regular rhythm Respiratory/Chest: lungs clear Abdomen: no mass Extremities: non-tender Edema: 1+ Leg (L), 1+ Leg (R) Negrito Gloria Feb 03, 2017 10:08
--- NOTE | 2017-02-03 11:16 | Infectious Diseases Prog Note ---
Assessment/Plan Assessment/Plan ASSESSMENT: #. The patient is a 66-year-old male with multiple history of pneumonia-rule out post obstructive pneumonia versus healthcare-associated pneumonia. -CXR 01/29: Basilar infiltrates either inflammatory or asymmetric edema noted. -sp cx K.pna (S Cipro, bactrim, Ceftriaxone), S. maltophila (S bactrim, levaquin) and Enterobacter cloacae(S. Levaquin/cipro, bactrim, ceftriaxone; I Imipenem); repeat 02/01 +4 GNB -Bcx NTD #Mild leukocytosis- possible reactive #GRACIELA- possible Bactrim related vs multifactorial #Acute encephalopathy- possible Meropenem related vs multifactorial #Afebrile #. Stage IV lung cancer. -CT Chest/abd/p w/: Left suprahilar spiculated lung mass, measuring 3.8 cm in diameter. This is consistent with stated clinical history of lung carcinoma. Other masslike opacities in the lungs bilaterally, could represent synchronous lung carcinomas or areas of fibrotic change. Mediastinal lymphadenopathy, likely metastatic. Evidence of anasarca, with large bilateral pleural effusions , small amount of ascites, generalized edema of the subcutaneous, mediastinal, and abdominal fat. COPD changes. Evidence of scattered areas of chronic fibrotic change within both lungs. Dilated right main pulmonary artery, consistent with pulmonary hypertension. Narrowing of the left main pulmonary artery and lumbar branches by the left lung mass. Occlusion of the right subclavian and right innominate veins. Evidence of abundant venous collaterals No acute abdominal process other than the ascites. 5 mm hyperenhancing area in segment 4A on both phases. Most likely area of arterial portal venous shunting, small hepatocellular carcinoma not completely excludable but unlikely. Borderline retroperitoneal lymphadenopathy, nonspecific. L2 vertebral body wedge deformity, may reflect a compression fracture deformity of indeterminate age. Liver cysts. Subcentimeter low-attenuation lesions which are too small tocharacterize, most likely benign cysts or bile hamartomas. #B/l pleural effusions- suspect malignant related > pneumonic -CXR 02/01: Large bilateral pleural effusions have increased on both sides. Interstitial congestion and basilar atelectatic changes persists, stable.. #. History of multiple adenopathy in the thoracic and neck. #. History of hypertension. PLAN: - D/c meropenem #5 (based on susceptibilities and patient's confusion) and Bactrim DS 3 tabs bid #2/10 (due to rise of Cr) and switch to Levaquin 750m qd ( will do IV for now until mental status improved and can take PO) -if GFR >50, then switch levaquin frequency to daily -12/4 IV Vancomycin #4 -12/2 SP Cefepime #2. -Consider thoracentesis if resp status does not improve/worsens -. Monitor CBC/BMP, temperaturs -. Monitor cultures (blood and sputum). - Heme onc f/u Thank you, Dr. Villegas, for allowing me to participate in the care of this patient. I will follow the patient with you during this hospitalization. Discussed with Dr Escobar Subjective Allergies: Coded Allergies: No Known Allergies (Unverified , 01/29/17) Subjective afebrile mild leukocytosis to 13 confused and with increased difficulty breathing Bcx NTD Objective Vital Signs Last 24 Hour Vital Signs Date Time Temp Pulse Resp B/P (MAP) Pulse Ox O2 Delivery O2 Flow Rate FiO2 02/03/17 09:20 95 Venturi Mask 14.0 55 02/03/17 09:19 Venturi Mask 14.0 55 02/03/17 08:49 97.3 114 26 138/92 93 02/03/17 08:36 62 22 95 Venturi Mask 14.0 55 02/03/17 07:46 55 20 Venturi Mask 14.0 55 02/03/17 05:33 70 20 95 Nasal Cannula 2.0 28 02/03/17 05:30 73 20 93 Nasal Cannula 2.0 28 02/03/17 04:00 111 02/03/17 00:04 97.0 50 20 125/75 93 Nasal Cannula 02/03/17 00:00 100 Nasal Cannula 2.0 02/03/17 00:00 100 02/02/17 20:39 75 20 Nasal Cannula 2.0 28 02/02/17 20:00 88 Nasal Cannula 2.0 02/02/17 20:00 97.3 47 20 125/60 98 Nasal Cannula 02/02/17 20:00 88 02/02/17 16:00 86 02/02/17 15:45 96.3 110 20 119/76 97 02/02/17 12:00 86 02/02/17 11:26 96.8 84 20 118/86 97 Height (Feet): 5 Height (Inches): 11.00 Weight (Pounds): 160 Objective HEENT: No pale conjunctivae. No icterus. NECK: No lymphadenopathy. CHEST: Coarse breathing sounds. HEART: S1 and S2. ABDOMEN: Soft. The patient has mild epigastric tenderness. The patient has also epigastric distention. EXTREMITIES: No cyanosis. NEUROLOGIC: confused Microbiology Date/Time Source Procedure Growth Status 02/01/17 17:40 Sputum Gram Stain - Final Resulted 02/01/17 17:40 Sputum Culture - Preliminary Gram Negative Bacillus 1 Resulted Laboratory Tests Test 02/03/17 07:20 White Blood Count 13.5 K/UL (4.8-10.8) #H Red Blood Count 4.42 M/UL (4.70-6.10) L Hemoglobin 13.4 G/DL (14.2-18.0) L Hematocrit 44.6 % (42.0-52.0) Mean Corpuscular Volume 101 FL (80-99) H Mean Corpuscular Hemoglobin 30.4 PG (27.0-31.0) Mean Corpuscular Hemoglobin Concent 30.1 G/DL (32.0-36.0) L Red Cell Distribution Width 13.1 % (11.6-14.8) Platelet Count 235 K/UL (150-450) Mean Platelet Volume 7.4 FL (6.5-10.1) Neutrophils (%) (Auto) % (45.0-75.0) Lymphocytes (%) (Auto) % (20.0-45.0) Monocytes (%) (Auto) % (1.0-10.0) Eosinophils (%) (Auto) % (0.0-3.0) Basophils (%) (Auto) % (0.0-2.0) Differential Total Cells Counted 100 Neutrophils % (Manual) 89 % (45-75) H Lymphocytes % (Manual) 4 % (20-45) L Monocytes % (Manual) 7 % (1-10) Eosinophils % (Manual) 0 % (0-3) Basophils % (Manual) 0 % (0-2) Band Neutrophils 0 % (0-8) Platelet Estimate Adequate Platelet Morphology Normal Macrocytosis 1+ Sodium Level 139 MMOL/L (136-145) Potassium Level 4.4 MMOL/L (3.5-5.1) Chloride Level 100 MMOL/L (98-107) Carbon Dioxide Level 29 MMOL/L (21-32) Anion Gap 10 mmol/L (5-15) Blood Urea Nitrogen 25 mg/dL (7-18) H Creatinine 1.8 MG/DL (0.55-1.30) #H Estimat Glomerular Filtration Rate 46.3 mL/min (>60) Glucose Level 72 MG/DL (74-106) L Calcium Level 10.2 MG/DL (8.5-10.1) H Current Medications Medications (Trade) Dose Ordered Sig/Matthew Route PRN Reason Start Time Stop Time Status Last Admin Dose Admin Acetaminophen (Tylenol) 650 mg Q4H PRN ORAL FEVER 01/29/17 22:45 02/28/17 22:44 Albuterol/ Ipratropium (Albuterol/ Ipratropium) 3 ml EVERY 4 HOURS PRN HHN Shortness of Breath 01/29/17 22:45 02/03/17 22:44 02/03/17 08:36 Dextrose (Dextrose 50%) STAT PRN IV Hypoglycemia 01/29/17 22:45 02/28/17 22:44 Haloperidol Lactate (Haldol) 5 mg Q4H PRN IVPB AGITATION 02/03/17 07:15 03/05/17 07:14 Lidocaine (Xylocaine 1% MPF 5ml) 10 ml Q4H PRN HHN cough 02/01/17 14:45 03/03/17 14:44 Meropenem 1 gm/ Sodium Chloride 55 ml @ 110 mls/hr Q12HR IVPB 02/03/17 21:00 02/08/17 20:59 Morphine Sulfate (Morphine Sulfate) 2 mg Q4H PRN IVP Severe Breakthru Pain (>7) 02/03/17 07:00 02/10/17 06:59 Ondansetron HCl (Zofran) 4 mg Q6H PRN IVP Nausea & Vomiting 01/29/17 22:45 02/28/17 22:44 Paroxetine HCl (Paxil) 20 mg BEDTIME ORAL 02/02/17 21:00 03/04/17 20:59 02/02/17 20:44 Polyethylene Glycol (Miralax) 17 gm DAILYPRN PRN ORAL Constipation 01/29/17 22:45 02/28/17 22:44 Promethazine HCl (Phenergan) 25 mg Q6H PRN IM Nausea & Vomiting 02/01/17 14:45 03/03/17 14:44 Promethazine HCl/ Codeine (Phenergan with Codeine) 5 ml Q4H PRN ORAL For Cough 02/01/17 15:00 03/03/17 14:59 Ranitidine HCl (Zantac) 150 mg BEDTIME ORAL 01/30/17 21:00 03/01/17 20:59 02/02/17 20:44 Theophylline (Brett-Dur) 100 mg DAILY ORAL 02/01/17 15:00 03/03/17 14:59 02/03/17 09:42 Trimethoprim/ Sulfamethoxazole (Bactrim-DS) 3 ea Q12HR ORAL 02/02/17 10:00 02/09/17 09:59 02/02/17 20:44 Neisha Reyes M.D. Feb 03, 2017 11:16
--- NOTE | 2017-02-03 11:24 | Internal Med Progress Note ---
Subjective Date of Service: Feb 03, 2017 Physician Name Williams Escobar Attending Physician Williams Escobar Current Medications Medications (Trade) Dose Ordered Sig/Matthew Route PRN Reason Start Time Stop Time Status Last Admin Dose Admin Acetaminophen (Tylenol) 650 mg Q4H PRN ORAL FEVER 01/29/17 22:45 02/28/17 22:44 Albuterol/ Ipratropium (Albuterol/ Ipratropium) 3 ml EVERY 4 HOURS PRN HHN Shortness of Breath 01/29/17 22:45 02/03/17 22:44 02/03/17 08:36 Dextrose (Dextrose 50%) STAT PRN IV Hypoglycemia 01/29/17 22:45 02/28/17 22:44 Haloperidol Lactate (Haldol) 5 mg Q4H PRN IVPB AGITATION 02/03/17 07:15 03/05/17 07:14 Lidocaine (Xylocaine 1% MPF 5ml) 10 ml Q4H PRN HHN cough 02/01/17 14:45 03/03/17 14:44 Meropenem 1 gm/ Sodium Chloride 55 ml @ 110 mls/hr Q8H IVPB 01/30/17 17:00 02/04/17 16:59 02/03/17 09:43 Morphine Sulfate (Morphine Sulfate) 2 mg Q4H PRN IVP Severe Breakthru Pain (>7) 02/03/17 07:00 02/10/17 06:59 Ondansetron HCl (Zofran) 4 mg Q6H PRN IVP Nausea & Vomiting 01/29/17 22:45 02/28/17 22:44 Paroxetine HCl (Paxil) 20 mg BEDTIME ORAL 02/02/17 21:00 03/04/17 20:59 02/02/17 20:44 Polyethylene Glycol (Miralax) 17 gm DAILYPRN PRN ORAL Constipation 01/29/17 22:45 02/28/17 22:44 Promethazine HCl (Phenergan) 25 mg Q6H PRN IM Nausea & Vomiting 02/01/17 14:45 03/03/17 14:44 Promethazine HCl/ Codeine (Phenergan with Codeine) 5 ml Q4H PRN ORAL For Cough 02/01/17 15:00 03/03/17 14:59 Ranitidine HCl (Zantac) 150 mg BEDTIME ORAL 01/30/17 21:00 03/01/17 20:59 02/02/17 20:44 Theophylline (Brett-Dur) 100 mg DAILY ORAL 02/01/17 15:00 03/03/17 14:59 02/03/17 09:42 Trimethoprim/ Sulfamethoxazole (Bactrim-DS) 3 ea Q12HR ORAL 02/02/17 10:00 02/09/17 09:59 02/02/17 20:44 Allergies: Coded Allergies: No Known Allergies (Unverified , 01/29/17) ROS Limited/Unobtainable: Yes Subjective 66 YO M admitted with metastatic lung cancer and shortness of breath. Now pneumonia. Increased confusion after receiving methadone; requiring 1:1 sitter. Patient requests discharge home with home health. Await biopsy result from [facility] Objective Last Vital Signs Date Time Temp Pulse Resp B/P (MAP) Pulse Ox O2 Delivery O2 Flow Rate FiO2 02/03/17 09:20 95 Venturi Mask 14.0 55 02/03/17 08:49 97.3 114 26 138/92 Laboratory Tests Test 02/03/17 07:20 White Blood Count 13.5 K/UL (4.8-10.8) #H Red Blood Count 4.42 M/UL (4.70-6.10) L Hemoglobin 13.4 G/DL (14.2-18.0) L Hematocrit 44.6 % (42.0-52.0) Mean Corpuscular Volume 101 FL (80-99) H Mean Corpuscular Hemoglobin 30.4 PG (27.0-31.0) Mean Corpuscular Hemoglobin Concent 30.1 G/DL (32.0-36.0) L Red Cell Distribution Width 13.1 % (11.6-14.8) Platelet Count 235 K/UL (150-450) Mean Platelet Volume 7.4 FL (6.5-10.1) Neutrophils (%) (Auto) % (45.0-75.0) Lymphocytes (%) (Auto) % (20.0-45.0) Monocytes (%) (Auto) % (1.0-10.0) Eosinophils (%) (Auto) % (0.0-3.0) Basophils (%) (Auto) % (0.0-2.0) Differential Total Cells Counted 100 Neutrophils % (Manual) 89 % (45-75) H Lymphocytes % (Manual) 4 % (20-45) L Monocytes % (Manual) 7 % (1-10) Eosinophils % (Manual) 0 % (0-3) Basophils % (Manual) 0 % (0-2) Band Neutrophils 0 % (0-8) Platelet Estimate Adequate Platelet Morphology Normal Macrocytosis 1+ Sodium Level 139 MMOL/L (136-145) Potassium Level 4.4 MMOL/L (3.5-5.1) Chloride Level 100 MMOL/L (98-107) Carbon Dioxide Level 29 MMOL/L (21-32) Anion Gap 10 mmol/L (5-15) Blood Urea Nitrogen 25 mg/dL (7-18) H Creatinine 1.8 MG/DL (0.55-1.30) #H Estimat Glomerular Filtration Rate 46.3 mL/min (>60) Glucose Level 72 MG/DL (74-106) L Calcium Level 10.2 MG/DL (8.5-10.1) H Microbiology Date/Time Source Procedure Growth Status 02/01/17 17:40 Sputum Gram Stain - Final Resulted 02/01/17 17:40 Sputum Culture - Preliminary Gram Negative Bacillus 1 Resulted Objective General Appearance: WD/WN, no apparent distress, alert EENT: PERRL/EOMI, normal ENT inspection Neck: non-tender, normal alignment, supple, normal inspection Cardiovascular: normal peripheral pulses, normal rate, regular rhythm, no gallop/murmur, no JVD Respiratory/Chest: respiratory distress, crackles/rales, rhonchi - bilaterally , expiratory wheezing Abdomen: normal bowel sounds, non tender, soft, no organomegaly, no mass Neurologic: dynamometer tuner II-XII grossly normal Lymphatic: firm anterior cervical (L), firm anterior cervical (R), firm posterior cervical (L), firm posterior cervical (R) Assessment/Plan Problem List: (1) Pneumonia Assessment & Plan: Continue vancomycin and meropenem per ID (2) HTN (hypertension) Assessment & Plan: Continue norvasc (3) Lung cancer Assessment & Plan: Left lung with Mets to lymph nodes-see CT result. Await biopsy results from [facility]. See oncology consult. (4) Hypoxia Assessment & Plan: Tolerating simple mask. See pulmonary note. (5) Encephalopathy Assessment & Plan: Acute. ?Started after receiving methadone? D/C methadone and morphine. 1:1 sitter. (6) Renal insufficiency Assessment & Plan: Start IV hydration Status: deteriorating Assessment/Plan Discharge plan: home with home health per patient request. F/U Dr Allison after D/C-Discussed with WILLIAMS Medina Feb 03, 2017 11:24
[2017-02-03 12:00] VITALS: BP 127/62
--- NOTE | 2017-02-03 12:45 | Neurology Progress Note ---
Interim History Interim History ROS Limited/Unobtainable: Yes Objective Physical Exam Last Vital Signs Date Time Temp Pulse Resp B/P (MAP) Pulse Ox O2 Delivery O2 Flow Rate FiO2 02/03/17 09:20 95 Venturi Mask 14.0 55 02/03/17 08:49 97.3 114 26 138/92 Laboratory Tests Test 02/03/17 07:20 White Blood Count 13.5 K/UL (4.8-10.8) #H Red Blood Count 4.42 M/UL (4.70-6.10) L Hemoglobin 13.4 G/DL (14.2-18.0) L Hematocrit 44.6 % (42.0-52.0) Mean Corpuscular Volume 101 FL (80-99) H Mean Corpuscular Hemoglobin 30.4 PG (27.0-31.0) Mean Corpuscular Hemoglobin Concent 30.1 G/DL (32.0-36.0) L Red Cell Distribution Width 13.1 % (11.6-14.8) Platelet Count 235 K/UL (150-450) Mean Platelet Volume 7.4 FL (6.5-10.1) Neutrophils (%) (Auto) % (45.0-75.0) Lymphocytes (%) (Auto) % (20.0-45.0) Monocytes (%) (Auto) % (1.0-10.0) Eosinophils (%) (Auto) % (0.0-3.0) Basophils (%) (Auto) % (0.0-2.0) Differential Total Cells Counted 100 Neutrophils % (Manual) 89 % (45-75) H Lymphocytes % (Manual) 4 % (20-45) L Monocytes % (Manual) 7 % (1-10) Eosinophils % (Manual) 0 % (0-3) Basophils % (Manual) 0 % (0-2) Band Neutrophils 0 % (0-8) Platelet Estimate Adequate Platelet Morphology Normal Macrocytosis 1+ Sodium Level 139 MMOL/L (136-145) Potassium Level 4.4 MMOL/L (3.5-5.1) Chloride Level 100 MMOL/L (98-107) Carbon Dioxide Level 29 MMOL/L (21-32) Anion Gap 10 mmol/L (5-15) Blood Urea Nitrogen 25 mg/dL (7-18) H Creatinine 1.8 MG/DL (0.55-1.30) #H Estimat Glomerular Filtration Rate 46.3 mL/min (>60) Glucose Level 72 MG/DL (74-106) L Calcium Level 10.2 MG/DL (8.5-10.1) H Impression/Recommendations Status: deteriorating Recommendations # [id number] INOCENCIA HO Feb 03, 2017 12:45
--- NOTE | 2017-02-03 12:59 | Pulmonology Progress Note ---
Assessment/Plan Problems: (1) Respiratory distress (2) Stage 4 lung cancer (3) Hypoxia (4) Pneumonia (5) Emphysema (6) Severe protein-calorie malnutrition Assessment/Plan sputum induction respiratory treatment antitussives lidocaine inhalation for cough add theophylin increase morphine IV add Methasone low dose d/w with pt and his ex- about plan of care. pts relatives at the bed site requesting DNR, haldol for agitation pt will go home on hospice when more stable Subjective ROS Limited/Unobtainable: No Interval Events: more confused, agitated Allergies: Coded Allergies: No Known Allergies (Unverified , 01/29/17) Objective Last 24 Hour Vital Signs Date Time Temp Pulse Resp B/P (MAP) Pulse Ox O2 Delivery O2 Flow Rate FiO2 02/03/17 09:20 95 Venturi Mask 14.0 55 02/03/17 09:19 Venturi Mask 14.0 55 02/03/17 08:49 97.3 114 26 138/92 93 02/03/17 08:36 62 22 95 Venturi Mask 14.0 55 02/03/17 07:46 55 20 Venturi Mask 14.0 55 02/03/17 05:33 70 20 95 Nasal Cannula 2.0 28 02/03/17 05:30 73 20 93 Nasal Cannula 2.0 28 02/03/17 04:00 111 02/03/17 00:04 97.0 50 20 125/75 93 Nasal Cannula 02/03/17 00:00 100 Nasal Cannula 2.0 02/03/17 00:00 100 02/02/17 20:39 75 20 Nasal Cannula 2.0 28 02/02/17 20:00 88 Nasal Cannula 2.0 02/02/17 20:00 97.3 47 20 125/60 98 Nasal Cannula 02/02/17 20:00 88 02/02/17 16:00 86 02/02/17 15:45 96.3 110 20 119/76 97 General Appearance: cachetic Respiratory/Chest: chest wall non-tender, chest wall tender, decreased breath sounds, crackles/rales Cardiovascular: normal peripheral pulses, regular rhythm Abdomen: normal bowel sounds, non distended Extremities: no cyanosis Skin: no rash, no lesions Microbiology Date/Time Source Procedure Growth Status 02/01/17 17:40 Sputum Gram Stain - Final Resulted 02/01/17 17:40 Sputum Culture - Preliminary Gram Negative Bacillus 1 Resulted Laboratory Tests 02/03/17 07:20: White Blood Count 13.5#H, Red Blood Count 4.42L, Hemoglobin 13.4L, Hematocrit 44.6, Mean Corpuscular Volume 101H, Mean Corpuscular Hemoglobin 30.4, Mean Corpuscular Hemoglobin Concent 30.1L, Red Cell Distribution Width 13.1, Platelet Count 235, Mean Platelet Volume 7.4, Neutrophils (%) (Auto) , Lymphocytes (%) (Auto) , Monocytes (%) (Auto) , Eosinophils (%) (Auto) , Basophils (%) (Auto) , Differential Total Cells Counted 100, Neutrophils % ( Manual) 89H, Lymphocytes % (Manual) 4L, Monocytes % (Manual) 7, Eosinophils % ( Manual) 0, Basophils % (Manual) 0, Band Neutrophils 0, Platelet Estimate Adequate, Platelet Morphology Normal, Macrocytosis 1+, Sodium Level 139, Potassium Level 4.4, Chloride Level 100, Carbon Dioxide Level 29, Anion Gap 10, Blood Urea Nitrogen 25H, Creatinine 1.8#H, Estimat Glomerular Filtration Rate 46.3, Glucose Level 72L, Calcium Level 10.2H Current Medications Medications (Trade) Dose Ordered Sig/Matthew Route PRN Reason Start Time Stop Time Status Last Admin Dose Admin Acetaminophen (Tylenol) 650 mg Q4H PRN ORAL FEVER 01/29/17 22:45 02/28/17 22:44 Albuterol/ Ipratropium (Albuterol/ Ipratropium) 3 ml EVERY 4 HOURS PRN HHN Shortness of Breath 01/29/17 22:45 02/03/17 22:44 02/03/17 08:36 Dextrose (Dextrose 50%) STAT PRN IV Hypoglycemia 01/29/17 22:45 02/28/17 22:44 Dextrose/Sodium Chloride 1,000 ml @ 100 mls/hr Q10H IV 02/03/17 11:45 03/05/17 11:44 Haloperidol Lactate (Haldol) 2 mg Q4H PRN IVPB AGITATION 02/03/17 15:15 03/05/17 15:14 Levofloxacin 150 ml @ 100 mls/hr EVERY OTHER DAY IVPB 02/03/17 13:00 02/10/17 12:59 Lidocaine (Xylocaine 1% MPF 5ml) 10 ml Q4H PRN HHN cough 02/01/17 14:45 03/03/17 14:44 Olanzapine (ZyPREXA Zydis) 5 mg DAILY ORAL 02/03/17 13:30 03/05/17 13:29 Ondansetron HCl (Zofran) 4 mg Q6H PRN IVP Nausea & Vomiting 01/29/17 22:45 02/28/17 22:44 Paroxetine HCl (Paxil) 20 mg BEDTIME ORAL 02/02/17 21:00 03/04/17 20:59 02/02/17 20:44 Polyethylene Glycol (Miralax) 17 gm DAILYPRN PRN ORAL Constipation 01/29/17 22:45 02/28/17 22:44 Promethazine HCl (Phenergan) 25 mg Q6H PRN IM Nausea & Vomiting 02/01/17 14:45 03/03/17 14:44 Promethazine HCl/ Codeine (Phenergan with Codeine) 5 ml Q4H PRN ORAL For Cough 02/01/17 15:00 03/03/17 14:59 Ranitidine HCl (Zantac) 150 mg BEDTIME ORAL 01/30/17 21:00 03/01/17 20:59 02/02/17 20:44 Theophylline (Brett-Dur) 100 mg DAILY ORAL 02/01/17 15:00 03/03/17 14:59 02/03/17 09:42 HONEY BISHOP Feb 03, 2017 12:59
[2017-02-03] MEDS: D5NS 1,000 ML IV SCH ×2 (13:16→21:45)
[2017-02-03] MEDS: ZyPREXA Zydis 5mg tab ORAL SCH (13:16)
[2017-02-03] MEDS: Haloperidol Lactate 2 MG in D5W 55 ML IVPB PRN ×2 (13:45→23:58)
[2017-02-03 16:00] VITALS: BP 127/69
[2017-02-03 20:46] VITALS: BP 108/74
[2017-02-03] MEDS ORDERED: Meropenem 1 GM in NS 55 ML IVPB SCH (21:00)
--- NOTE | 2017-02-03 21:15 | Consultation ---
DATE OF CONSULTATION: 02/03/2017 NEUROLOGICAL CONSULTATION CONSULTING PHYSICIAN: Benedicto Andrews M.D. REQUESTING PHYSICIAN: Williams Escobar M.D. HISTORY OF PRESENT ILLNESS: This 66-year-old man seen in neurological consultation to evaluate the new onset of acute change in mental status. The patient noticed becoming increasingly agitated, restless, confused, disoriented in the last appointment 24 hours presumably after he was given methadone. In addition, he is on meropenem antibiotic. The patient admitted to this hospital with recently diagnosed stage IV lung CA, now presented with dyspnea and generalized weakness. Prior to admission, he had an episode of syncope when he had a transient loss of consciousness and shortness of breath. On admission, he was hypotensive, blood pressure 103/83, temperature 98.4 degrees, pulse oximetry 95% on nasal cannula of 2. His imaging studies included a chest x-ray revealing suspected CHF and/or basilar infiltrate. Repeat chest x-ray revealed increasing bilateral pleural fluid over the last three days and stable bilateral interstitial congestive changes. CT scan of the abdomen, pelvis and chest revealed presence of multiple areas of metastatic disease, throughout the left suprahilar stipulated lung mass measuring 3.8 centimeter in diameter as well as other opacities of the lungs representing synchronous lung carcinoma or areas of fibrotic changes, mediastinal lymphadenopathy, possible metastatic and presence of anasarca with large pleural effusion. The patient was placed on IV fluids and antibiotics. A lung biopsy obtained previously now pending. CURRENT MEDICATIONS: His treatment included Xarelto, theophylline, ranitidine, promethazine, Zofran, methadone, morphine. He was given Haldol if necessary. He was on meropenem and levofloxacin. He is on oxygen support. PAST MEDICAL HISTORY: History of hypertension, history of COPD. Treatment prior to admission included amlodipine. The patient is previously smoker. Admitted with amlodipine. FAMILY HISTORY: Noncontributory. SOCIAL HISTORY: He lives alone. Previously smoker. No alcohol or drug abuse noted. REVIEW OF SYMPTOMS: Unable to obtain due to the patient's status. PHYSICAL EXAMINATION: GENERAL: This is a well-developed and ill-appearing man, who on Ventimask, which he constantly trying to take it off. VITAL SIGNS: Temperature 97.3 degrees, heart rate of 114, and blood pressure was 138/92. HEENT: Normocephalic. There is no evidence of trauma. Eyes, ears, and throat are clear. NECK: Supple. No meningeal signs. MUSCULOSKELETAL: Unremarkable. There is no deformities. Peripheral pulses 1+ symmetric. MENTAL STATUS: The patient is intermittently drowsy, but predominantly agitated, restless, confused, disoriented, able to give his name and age, but not able to provide with any history. CRANIAL NERVE II: Pupils both responding to light and accommodation. Extraocular movement intact. No nystagmus. CRANIAL NERVE V: Normal corneal responses. CRANIAL NERVE VII: No facial asymmetry. CRANIAL NERVE VIII: Grossly normal hearing. CRANIAL NERVE IX THROUGH XII: With normal limits. MOTOR EXAMINATION: Normal muscle tone. Strength 5/5 in all extremities. No involuntary movement. Deep tendon reflexes 1+ symmetric with downgoing toes on both sides. SENSORY EXAM: Normal to pinprick and light touch. Gait not tested. The patient was restless. IMPRESSION: 1. Acute delirium, rule out drug-induced encephalopathy, rule out brain metastasis, consider meningeal carcinomatosis. 2. Stage IV lung carcinoma, metastatic. 3. Chronic obstructive pulmonary disease. 4. Pleural effusion. RECOMMENDATION: 1. Get MRI of the brain with and without contrast, rule out metastatic disease. 2. Continue with current supportive care as per Oncology. 3. Seroquel 12.5 mg b.i.d. for acute exacerbation of psychosis, may use Haldol 2 mg IM or/and Ativan 1-2 mg intravenous. Thank you for allowing me to see this interesting patient in neurological consultation. Benedicto Andrews M.D. DR: CACHORRO JOB#: [id number] CC:
[2017-02-03] MEDS: PARoxetine 20mg tab ORAL SCH (21:47)
[2017-02-04] VITALS: BP 119/40
[2017-02-04 03:44] VITALS: BP 99/72
[2017-02-04 08:00] VITALS: BP 118/82
[2017-02-04 08:14] LABS: MEAN CORPUSCULAR HEMOGLOBIN 31.2 PG (27.0-31.0); MEAN CORPUSCULAR HGB CONC 31.6 G/DL (32.0-36.0); MEAN CORPUSCULAR VOLUME 99 FL (80-99); MEAN PLATELET VOLUME 7.5 FL (6.5-10.1); PLATELET COUNT 201 K/UL (150-450); RED BLOOD COUNT 4.19 M/UL (4.70-6.10); RED CELL DISTRIBUTION WIDTH 12.8 % (11.6-14.8); WHITE BLOOD COUNT 11.1 K/UL (4.8-10.8)
[2017-02-04 08:30] LABS: ANION GAP 5 mmol/L (5-15); CALCIUM 9.3 MG/DL (8.5-10.1); CARBON DIOXIDE 30 MMOL/L (21-32); CHLORIDE 102 MMOL/L (98-107); CREATININE 2.5 MG/DL (0.55-1.30); GLOMERULAR FILTRATION RATE 31.6 mL/min (>60); POTASSIUM 5.6 MMOL/L (3.5-5.1); SODIUM 137 MMOL/L (136-145)
[2017-02-04] MEDS: Theophylline ER 100mg ORAL SCH (08:35)
[2017-02-04 08:36] LABS: BAND NEUTROPHILS % (MANUAL) 0 % (0-8); BASOPHILS % (MANUAL) 0 % (0-2); EOSINOPHILS % (MANUAL) 0 % (0-3); HYPOCHROMASIA 1+; LYMPHOCYTES % (MANUAL) 6 % (20-45); NEUTROPHILS % (MANUAL) 83 % (45-75); PLATELET ESTIMATE ADEQUATE; PLATELET MORPHOLOGY NORMAL; TOTAL CELLS COUNTED 100
[2017-02-04] MEDS: D5NS 1,000 ML IV SCH ×2 (08:36→18:15)
[2017-02-04] MEDS: ZyPREXA Zydis 5mg tab ORAL SCH (08:36)
--- NOTE | 2017-02-04 11:15 | Infectious Diseases Prog Note ---
Assessment/Plan Assessment/Plan ASSESSMENT: #. The patient is a 66-year-old male with multiple history of pneumonia-rule out post obstructive pneumonia versus healthcare-associated pneumonia. -CXR 01/29: Basilar infiltrates either inflammatory or asymmetric edema noted. -sp cx K.pna (S Cipro, bactrim, Ceftriaxone), S. maltophila (S bactrim, levaquin) and Enterobacter cloacae(S. Levaquin/cipro, bactrim, ceftriaxone; I Imipenem); repeat 02/01 +4 S. maltophila (S levaquin, bactrim) -Bcx NTD #Mild leukocytosis- possible reactive, now improving #GRACIELA- possible Bactrim related vs multifactorial- worsening #Acute encephalopathy- possible Meropenem related vs multifactorial #Afebrile #. Stage IV lung cancer. -CT Chest/abd/p w/: Left suprahilar spiculated lung mass, measuring 3.8 cm in diameter. This is consistent with stated clinical history of lung carcinoma. Other masslike opacities in the lungs bilaterally, could represent synchronous lung carcinomas or areas of fibrotic change. Mediastinal lymphadenopathy, likely metastatic. Evidence of anasarca, with large bilateral pleural effusions , small amount of ascites, generalized edema of the subcutaneous, mediastinal, and abdominal fat. COPD changes. Evidence of scattered areas of chronic fibrotic change within both lungs. Dilated right main pulmonary artery, consistent with pulmonary hypertension. Narrowing of the left main pulmonary artery and lumbar branches by the left lung mass. Occlusion of the right subclavian and right innominate veins. Evidence of abundant venous collaterals No acute abdominal process other than the ascites. 5 mm hyperenhancing area in segment 4A on both phases. Most likely area of arterial portal venous shunting, small hepatocellular carcinoma not completely excludable but unlikely. Borderline retroperitoneal lymphadenopathy, nonspecific. L2 vertebral body wedge deformity, may reflect a compression fracture deformity of indeterminate age. Liver cysts. Subcentimeter low-attenuation lesions which are too small tocharacterize, most likely benign cysts or bile hamartomas. #B/l pleural effusions- suspect malignant related > pneumonic -CXR 02/01: Large bilateral pleural effusions have increased on both sides. Interstitial congestion and basilar atelectatic changes persists, stable.. #. History of multiple adenopathy in the thoracic and neck. #. History of hypertension. PLAN: - Continue Levaquin 750m q48hr abx d #3/10 (will do IV for now until mental status improved and can take PO) -if GFR >50, then switch levaquin frequency to daily -12/6 SP Meropenem #5, bactrim #2 -12/ IV Vancomycin #4 -12/ SP Cefepime #2. -Consider thoracentesis if resp status does not improve/worsens -. Monitor CBC/BMP, temperaturs -. Monitor cultures (blood and sputum). - Heme onc f/u Thank you, Dr. Villegas, for allowing me to participate in the care of this patient. I will follow the patient with you during this hospitalization. Discussed with Dr Escobar Subjective Allergies: Coded Allergies: No Known Allergies (Unverified , 01/29/17) Subjective afebrile leukocytosis improving Cr worsening Objective Vital Signs Last 24 Hour Vital Signs Date Time Temp Pulse Resp B/P (MAP) Pulse Ox O2 Delivery O2 Flow Rate FiO2 02/04/17 08:00 119 02/04/17 08:00 98.1 95 18 118/82 85 02/04/17 07:14 82 Nasal Cannula 5.0 40 02/04/17 07:14 82 18 Nasal Cannula 5.0 40 02/04/17 07:14 Nasal Cannula 5.0 40 02/04/17 04:00 112 02/04/17 03:44 97.7 82 20 99/72 91 Nasal Cannula 02/04/17 00:00 97.7 88 20 119/40 80 Nasal Cannula 02/04/17 00:00 100 02/03/17 21:59 110 20 84 Nasal Cannula 5.0 40 02/03/17 21:44 110 20 81 Nasal Cannula 5.0 40 02/03/17 21:31 110 20 86 Nasal Cannula 5.0 40 02/03/17 21:31 Nasal Cannula 5.0 40 02/03/17 21:30 86 Nasal Cannula 5.0 40 02/03/17 21:29 86 20 Nasal Cannula 5.0 40 02/03/17 20:46 97.7 88 20 108/74 88 Nasal Cannula 02/03/17 20:00 106 02/03/17 16:00 97.7 100 20 127/69 82 Nasal Cannula 5.0 02/03/17 16:00 86 02/03/17 12:00 97 02/03/17 12:00 97.5 95 20 127/62 87 Height (Feet): 5 Height (Inches): 11.00 Weight (Pounds): 160 Objective HEENT: No pale conjunctivae. No icterus. NECK: No lymphadenopathy. CHEST: Coarse breathing sounds. HEART: S1 and S2. ABDOMEN: Soft. The patient has mild epigastric tenderness. The patient has also epigastric distention. EXTREMITIES: No cyanosis. NEUROLOGIC: confused Microbiology Date/Time Source Procedure Growth Status 02/01/17 17:40 Sputum Gram Stain - Final Complete 02/01/17 17:40 Sputum Culture - Final Stenotrophomonas Maltophilia Complete Laboratory Tests Test 02/04/17 08:00 White Blood Count 11.1 K/UL (4.8-10.8) H Red Blood Count 4.19 M/UL (4.70-6.10) L Hemoglobin 13.1 G/DL (14.2-18.0) L Hematocrit 41.3 % (42.0-52.0) L Mean Corpuscular Volume 99 FL (80-99) Mean Corpuscular Hemoglobin 31.2 PG (27.0-31.0) H Mean Corpuscular Hemoglobin Concent 31.6 G/DL (32.0-36.0) L Red Cell Distribution Width 12.8 % (11.6-14.8) Platelet Count 201 K/UL (150-450) Mean Platelet Volume 7.5 FL (6.5-10.1) Neutrophils (%) (Auto) % (45.0-75.0) Lymphocytes (%) (Auto) % (20.0-45.0) Monocytes (%) (Auto) % (1.0-10.0) Eosinophils (%) (Auto) % (0.0-3.0) Basophils (%) (Auto) % (0.0-2.0) Differential Total Cells Counted 100 Neutrophils % (Manual) 83 % (45-75) H Lymphocytes % (Manual) 6 % (20-45) L Monocytes % (Manual) 11 % (1-10) H Eosinophils % (Manual) 0 % (0-3) Basophils % (Manual) 0 % (0-2) Band Neutrophils 0 % (0-8) Platelet Estimate Adequate Platelet Morphology Normal Red Blood Cell Morphology Hypochromasia 1+ Sodium Level 137 MMOL/L (136-145) Potassium Level 5.6 MMOL/L (3.5-5.1) H Chloride Level 102 MMOL/L (98-107) Carbon Dioxide Level 30 MMOL/L (21-32) Anion Gap 5 mmol/L (5-15) Blood Urea Nitrogen 48 mg/dL (7-18) H Creatinine 2.5 MG/DL (0.55-1.30) H Estimat Glomerular Filtration Rate 31.6 mL/min (>60) Glucose Level 100 MG/DL (74-106) Calcium Level 9.3 MG/DL (8.5-10.1) Current Medications Medications (Trade) Dose Ordered Sig/Matthew Route PRN Reason Start Time Stop Time Status Last Admin Dose Admin Acetaminophen (Tylenol) 650 mg Q4H PRN ORAL FEVER 01/29/17 22:45 02/28/17 22:44 Dextrose (Dextrose 50%) STAT PRN IV Hypoglycemia 01/29/17 22:45 02/28/17 22:44 Dextrose/Sodium Chloride 1,000 ml @ 100 mls/hr Q10H IV 02/03/17 11:45 03/05/17 11:44 02/04/17 08:36 Haloperidol Lactate 2 mg/ Dextrose 55.4 ml @ 221.6 mls/ hr Q4H PRN IVPB Agitation 02/03/17 13:15 03/05/17 13:14 02/03/17 23:58 Levofloxacin 150 ml @ 100 mls/hr EVERY OTHER DAY IVPB 02/03/17 13:00 02/10/17 12:59 02/03/17 13:21 Lidocaine (Xylocaine 1% MPF 5ml) 10 ml Q4H PRN HHN cough 02/01/17 14:45 03/03/17 14:44 Olanzapine (ZyPREXA Zydis) 5 mg DAILY ORAL 02/03/17 13:30 03/05/17 13:29 02/04/17 08:36 Ondansetron HCl (Zofran) 4 mg Q6H PRN IVP Nausea & Vomiting 01/29/17 22:45 02/28/17 22:44 Paroxetine HCl (Paxil) 20 mg BEDTIME ORAL 02/02/17 21:00 03/04/17 20:59 02/03/17 21:47 Polyethylene Glycol (Miralax) 17 gm DAILYPRN PRN ORAL Constipation 01/29/17 22:45 02/28/17 22:44 Promethazine HCl (Phenergan) 25 mg Q6H PRN IM Nausea & Vomiting 02/01/17 14:45 03/03/17 14:44 Promethazine HCl/ Codeine (Phenergan with Codeine) 5 ml Q4H PRN ORAL For Cough 02/01/17 15:00 03/03/17 14:59 Ranitidine HCl (Zantac) 150 mg BEDTIME ORAL 01/30/17 21:00 03/01/17 20:59 02/03/17 21:47 Theophylline (Brett-Dur) 100 mg DAILY ORAL 02/01/17 15:00 03/03/17 14:59 02/04/17 08:35 Neisha Reyes M.D. Feb 04, 2017 11:15
--- NOTE | 2017-02-04 11:29 | General Progress Note ---
Assessment/Plan Assessment/Plan Assessment and Recs: #. Metastatic lung cancer, recently diagnosed on 01/21/17 at [facility] --> currently is very confused, has been deteriorating, cr has been worse, with renal failure --> patient performance status is stable, needs followup at [facility] --> followup with palliative/hospice, does help with overall survival for lung cancer patients, especially in light of worsening medical condition --> consider code status change, given progressive worsening status --> may need PT/OT and placement to SNIF #. Anemia, mild at this time. Continue to monitor # Shortness of breath 2/2 lung cancer #. Chronic DVT BLE. (superficial femoral vein is a deep vein) --> on Xarelto. Subjective Allergies: Coded Allergies: No Known Allergies (Unverified , 01/29/17) All Systems: reviewed and negative except above Subjective NAD Objective Last 24 Hour Vital Signs Date Time Temp Pulse Resp B/P (MAP) Pulse Ox O2 Delivery O2 Flow Rate FiO2 02/04/17 08:00 119 02/04/17 08:00 98.1 95 18 118/82 85 02/04/17 07:14 82 Nasal Cannula 5.0 40 02/04/17 07:14 82 18 Nasal Cannula 5.0 40 02/04/17 07:14 Nasal Cannula 5.0 40 02/04/17 04:00 112 02/04/17 03:44 97.7 82 20 99/72 91 Nasal Cannula 02/04/17 00:00 97.7 88 20 119/40 80 Nasal Cannula 02/04/17 00:00 100 02/03/17 21:59 110 20 84 Nasal Cannula 5.0 40 02/03/17 21:44 110 20 81 Nasal Cannula 5.0 40 02/03/17 21:31 110 20 86 Nasal Cannula 5.0 40 02/03/17 21:31 Nasal Cannula 5.0 40 02/03/17 21:30 86 Nasal Cannula 5.0 40 02/03/17 21:29 86 20 Nasal Cannula 5.0 40 02/03/17 20:46 97.7 88 20 108/74 88 Nasal Cannula 02/03/17 20:00 106 02/03/17 16:00 97.7 100 20 127/69 82 Nasal Cannula 5.0 02/03/17 16:00 86 02/03/17 12:00 97 02/03/17 12:00 97.5 95 20 127/62 87 Laboratory Tests 02/04/17 08:00: White Blood Count 11.1H, Red Blood Count 4.19L, Hemoglobin 13.1L, Hematocrit 41.3L, Mean Corpuscular Volume 99, Mean Corpuscular Hemoglobin 31.2H, Mean Corpuscular Hemoglobin Concent 31.6L, Red Cell Distribution Width 12.8, Platelet Count 201, Mean Platelet Volume 7.5, Neutrophils (%) (Auto) , Lymphocytes (%) (Auto) , Monocytes (%) (Auto) , Eosinophils (%) (Auto) , Basophils (%) (Auto) , Differential Total Cells Counted 100, Neutrophils % ( Manual) 83H, Lymphocytes % (Manual) 6L, Monocytes % (Manual) 11H, Eosinophils % (Manual) 0, Basophils % (Manual) 0, Band Neutrophils 0, Platelet Estimate Adequate, Platelet Morphology Normal, Red Blood Cell Morphology , Hypochromasia 1+, Sodium Level 137, Potassium Level 5.6H, Chloride Level 102, Carbon Dioxide Level 30, Anion Gap 5, Blood Urea Nitrogen 48H, Creatinine 2.5H, Estimat Glomerular Filtration Rate 31.6, Glucose Level 100, Calcium Level 9.3 Height (Feet): 5 Height (Inches): 11.00 Weight (Pounds): 160 General Appearance: no apparent distress EENT: normal ENT inspection Extremities: normal range of motion Negrito Gloria Feb 04, 2017 11:29
[2017-02-04 12:00] VITALS: BP 130/72
[2017-02-04] MEDS ORDERED: Sodium Polystyrene Sulfonate 15gm Powder ORAL ONE (12:30)
--- NOTE | 2017-02-04 12:38 | Diagnostic Imaging Report ---
INDICATION: Shortness of breath and abdominal pain TECHNIQUE: No IV contrast, per referring physician request. Patient ingested enteric contrast. Spiral acquisitions obtained through the chest, abdomen, and pelvis. Multiplanar reconstructions were generated. Total dose length product 967 mGycm. CTDIvol(s) 12 and 10 mGy. Radiation dose was minimized using automated exposure control COMPARISON: 02/01/2017 contrast study FINDINGS: Again demonstrated is anasarca, with bilateral pleural effusions, diffuse edema of the subcutaneous abdominal fat. Is also some ascites fluid present. Edema appears to progressed since the prior study. Chest: As mentioned above, large bilateral pleural effusions, right greater than left, are again demonstrated, not significantly changed from exam of 3 days earlier. Again demonstrated is a mass in the left upper lobe which is spiculated, measuring 3.8 x 3.6 cm in diameter. Posterior to this, there is another masslike opacity and or peripheral consolidation extending to the pleural surface. This may also involve the lower lobe Another opacities seen in the left upper lobe anteriorly and laterally, likewise extending to the periphery, measuring 3.5 cm long axis dimension and appearing essentially unchanged. There are surrounding linear areas of atelectasis or scarring, versus tumor, likewise appearing unchanged. Again demonstrated is near complete atelectasis of the left lower lobe. Within the right upper lobe, there is reticular interstitial disease which is markedly increased in extent from the prior exam. Previously demonstrated right perihilar upper lobe spiculated opacity is now obscured by surrounding consolidated lung. There is atelectasis of a significant portion of the right middle lobe which was not evident previously. Spiculated lesion is currently obscured by the surrounding atelectatic lung. There is also increasing atelectasis of the right lower lobe, as well as increased reticular and airspace opacity within the right lower lobe Again demonstrated are granulomatous rudy calcifications in the right hilum. Again demonstrated is mediastinal adenopathy. The thyroid is unremarkable. Prominent although not frankly enlarged axillary nodes are demonstrated, in retrospect evident previously, perhaps more conspicuous currently. The heart remains mild to moderately enlarged. Previously demonstrated right main pulmonary artery enlargement is again demonstrated Previously described vascular compressions and occlusions are not evident in the absence of IV contrast administration on the current exam. Abdomen pelvis: As previously, the appendix is not definitely visualized, but there are no findings to suggest acute appendicitis. No evidence of colonic diverticulosis or diverticulitis. Small amount of ascites fluid is present, appears to be decreased as compared to the previous study. No small bowel distention or small bowel wall thickening. No free intraperitoneal air. Esophagus is grossly unremarkable. The stomach and duodenum are unremarkable. Contrast is seen throughout the entirety of the small bowel and well into the colon, indicating absence of obstructive pathology. The ascending colon and transverse colon are dilated, gradual the tapering to upper limits of normal in caliber. Lack of IV contrast limits assessment of the solid organs. Liver again demonstrates multiple cysts. The gallbladder demonstrates increased density of its luminal contents, likely excreted contrast from the previous exam. No biliary ductal dilatation. The pancreas is unremarkable. The spleen contains calcifications. The adrenals and kidneys are grossly unremarkable. No retroperitoneal or mesenteric mass or adenopathy. The bladder is distended. The bladder contents are high in attenuation. The bones are unremarkable except for very mild L2 wedge deformity which was previously described. Impression: Increased right lung parenchym -- al disease, presumably infiltrates or edema, as well as increased right lung atelectasis as detailed above, since prior exam of 3 days earlier Left upper and lower lobe masslike lesions, suspicious for lung carcinoma, also previously described Previously described right lung masslike opacities are currently somewhat obscured by the surrounding evolving parenchymal disease Bilateral large pleural effusions, not significantly changed Mediastinal lymphadenopathy, also previously described, suspect metastatic Prominent bilateral axillary nodes, significance uncertain, in retrospect also evident previously Pulmonary arterial enlargement, as previously described, consistent with pulmonary arterial hypertension Other evidence of anasarca, including trace ascites, extensive subcutaneous, mediastinal, and abdominal edema. Subcutaneous edema appears to have increased since previous study No definite acute abdominal process other than ascites Dilated proximal colon without evidence of downstream obstruction, probably functional in nature Distended bladder. Dense luminal contents of the bladder probably reflects residual contrast from the previous study, but bloody urine also a possibility. Correlate with clinical findings L2 wedge compression fracture deformity, also previously described Liver cysts also previously described Evidence of old granulomatous disease within the right pulmonary hilum and spleen The CT scanner at [facility] is accredited by the [employer] and the scans are performed using protocols designed to limit radiation exposure to as low as reasonably achievable to attain images of sufficient resolution adequate for diagnostic evaluation.
--- NOTE | 2017-02-04 13:03 | Pulmonology Progress Note ---
Assessment/Plan Problems: (1) Respiratory distress (2) Stage 4 lung cancer (3) Hypoxia (4) Pneumonia (5) Emphysema (6) Severe protein-calorie malnutrition Assessment/Plan respiratory treatment antitussives lidocaine inhalation for cough add theophylin increase morphine IV haldol for agitation Subjective ROS Limited/Unobtainable: Yes Interval Events: still short of breath Allergies: Coded Allergies: No Known Allergies (Unverified , 01/29/17) Objective Last 24 Hour Vital Signs Date Time Temp Pulse Resp B/P (MAP) Pulse Ox O2 Delivery O2 Flow Rate FiO2 02/04/17 12:00 94.1 115 20 130/72 79 02/04/17 08:00 119 02/04/17 08:00 98.1 95 18 118/82 85 02/04/17 07:14 82 Nasal Cannula 5.0 40 02/04/17 07:14 82 18 Nasal Cannula 5.0 40 02/04/17 07:14 Nasal Cannula 5.0 40 02/04/17 04:00 112 02/04/17 03:44 97.7 82 20 99/72 91 Nasal Cannula 02/04/17 00:00 97.7 88 20 119/40 80 Nasal Cannula 02/04/17 00:00 100 02/03/17 21:59 110 20 84 Nasal Cannula 5.0 40 02/03/17 21:44 110 20 81 Nasal Cannula 5.0 40 02/03/17 21:31 110 20 86 Nasal Cannula 5.0 40 02/03/17 21:31 Nasal Cannula 5.0 40 02/03/17 21:30 86 Nasal Cannula 5.0 40 02/03/17 21:29 86 20 Nasal Cannula 5.0 40 02/03/17 20:46 97.7 88 20 108/74 88 Nasal Cannula 02/03/17 20:00 106 02/03/17 16:00 97.7 100 20 127/69 82 Nasal Cannula 5.0 02/03/17 16:00 86 General Appearance: cachetic HEENT: normocephalic, atraumatic, PERRL Respiratory/Chest: accessory muscle use, crackles/rales Cardiovascular: normal peripheral pulses, normal rate Abdomen: normal bowel sounds, soft, non tender Extremities: no clubbing Skin: no rash, no lesions Microbiology Date/Time Source Procedure Growth Status 02/01/17 17:40 Sputum Gram Stain - Final Complete 02/01/17 17:40 Sputum Culture - Final Stenotrophomonas Maltophilia Complete Laboratory Tests 02/04/17 08:00: White Blood Count 11.1H, Red Blood Count 4.19L, Hemoglobin 13.1L, Hematocrit 41.3L, Mean Corpuscular Volume 99, Mean Corpuscular Hemoglobin 31.2H, Mean Corpuscular Hemoglobin Concent 31.6L, Red Cell Distribution Width 12.8, Platelet Count 201, Mean Platelet Volume 7.5, Neutrophils (%) (Auto) , Lymphocytes (%) (Auto) , Monocytes (%) (Auto) , Eosinophils (%) (Auto) , Basophils (%) (Auto) , Differential Total Cells Counted 100, Neutrophils % ( Manual) 83H, Lymphocytes % (Manual) 6L, Monocytes % (Manual) 11H, Eosinophils % (Manual) 0, Basophils % (Manual) 0, Band Neutrophils 0, Platelet Estimate Adequate, Platelet Morphology Normal, Red Blood Cell Morphology , Hypochromasia 1+, Sodium Level 137, Potassium Level 5.6H, Chloride Level 102, Carbon Dioxide Level 30, Anion Gap 5, Blood Urea Nitrogen 48H, Creatinine 2.5H, Estimat Glomerular Filtration Rate 31.6, Glucose Level 100, Calcium Level 9.3 Current Medications Medications (Trade) Dose Ordered Sig/Matthew Route PRN Reason Start Time Stop Time Status Last Admin Dose Admin Acetaminophen (Tylenol) 650 mg Q4H PRN ORAL FEVER 01/29/17 22:45 02/28/17 22:44 Dextrose (Dextrose 50%) STAT PRN IV Hypoglycemia 01/29/17 22:45 02/28/17 22:44 Dextrose/Sodium Chloride 1,000 ml @ 100 mls/hr Q10H IV 02/03/17 11:45 03/05/17 11:44 02/04/17 08:36 Haloperidol Lactate 2 mg/ Dextrose 55.4 ml @ 221.6 mls/ hr Q4H PRN IVPB Agitation 02/03/17 13:15 03/05/17 13:14 02/03/17 23:58 Levofloxacin 150 ml @ 100 mls/hr EVERY OTHER DAY IVPB 02/03/17 13:00 02/10/17 12:59 02/03/17 13:21 Lidocaine (Xylocaine 1% MPF 5ml) 10 ml Q4H PRN HHN cough 02/01/17 14:45 03/03/17 14:44 Morphine Sulfate (Morphine Sulfate) 4 mg Q4H PRN IVP PAIN 4-10 02/04/17 12:45 02/11/17 12:44 Olanzapine (ZyPREXA Zydis) 5 mg DAILY ORAL 02/03/17 13:30 03/05/17 13:29 02/04/17 08:36 Ondansetron HCl (Zofran) 4 mg Q6H PRN IVP Nausea & Vomiting 01/29/17 22:45 02/28/17 22:44 Paroxetine HCl (Paxil) 20 mg BEDTIME ORAL 02/02/17 21:00 03/04/17 20:59 02/03/17 21:47 Polyethylene Glycol (Miralax) 17 gm DAILYPRN PRN ORAL Constipation 01/29/17 22:45 02/28/17 22:44 Promethazine HCl (Phenergan) 25 mg Q6H PRN IM Nausea & Vomiting 02/01/17 14:45 03/03/17 14:44 Promethazine HCl/ Codeine (Phenergan with Codeine) 5 ml Q4H PRN ORAL For Cough 02/01/17 15:00 03/03/17 14:59 Ranitidine HCl (Zantac) 150 mg BEDTIME ORAL 01/30/17 21:00 03/01/17 20:59 02/03/17 21:47 Theophylline (Brett-Dur) 100 mg DAILY ORAL 02/01/17 15:00 03/03/17 14:59 02/04/17 08:35 HONEY BISHOP Feb 04, 2017 13:03
[2017-02-04] MEDS ORDERED: Haloperidol 5mg/ml Inj IM PRN (13:30)
[2017-02-04] MEDS: Morphine Sulfate 4mg/ml Inj IVP PRN ×2 (14:29→18:15)
[2017-02-04 16:00] VITALS: BP 105/59
[2017-02-04 18:19] LABS: MEAN CORPUSCULAR HEMOGLOBIN 30.7 PG (27.0-31.0); MEAN CORPUSCULAR HGB CONC 31.5 G/DL (32.0-36.0); MEAN CORPUSCULAR VOLUME 97 FL (80-99); MEAN PLATELET VOLUME 7.5 FL (6.5-10.1); PLATELET COUNT 211 K/UL (150-450); RED BLOOD COUNT 4.38 M/UL (4.70-6.10); RED CELL DISTRIBUTION WIDTH 12.7 % (11.6-14.8); WHITE BLOOD COUNT 10.3 K/UL (4.8-10.8)
[2017-02-04 18:27] LABS: BASOPHILS % (AUTO) 0.9 % (0.0-2.0); LYMPHOCYTES % (AUTO) 2.7 % (20.0-45.0); MONOCYTES % (AUTO) 7.8 % (1.0-10.0); NEUTROPHILS % (AUTO) 88.5 % (45.0-75.0)
[2017-02-04 18:35] LABS: PROTHROMBIN TIME 10.3 SEC (9.30-11.50)
[2017-02-04 20:00] VITALS: BP 142/71
[2017-02-04] MEDS: PARoxetine 20mg tab ORAL SCH (21:00)
--- NOTE | 2017-02-04 23:41 | Internal Med Progress Note ---
Subjective Physician Name ValeriyChanning Attending Physician Williams Escobar Current Medications Medications (Trade) Dose Ordered Sig/Matthew Route PRN Reason Start Time Stop Time Status Last Admin Dose Admin Acetaminophen (Tylenol) 650 mg Q4H PRN ORAL FEVER 01/29/17 22:45 02/28/17 22:44 Dextrose (Dextrose 50%) STAT PRN IV Hypoglycemia 01/29/17 22:45 02/28/17 22:44 Dextrose/Sodium Chloride 1,000 ml @ 100 mls/hr Q10H IV 02/03/17 11:45 03/05/17 11:44 02/04/17 18:15 Haloperidol Lactate (Haldol) 2 mg Q4H PRN IM Agitation 02/04/17 13:30 03/06/17 13:29 Levofloxacin 150 ml @ 100 mls/hr EVERY OTHER DAY IVPB 02/03/17 13:00 02/10/17 12:59 02/03/17 13:21 Lidocaine (Xylocaine 1% MPF 5ml) 10 ml Q4H PRN HHN cough 02/01/17 14:45 03/03/17 14:44 Morphine Sulfate (Morphine Sulfate) 4 mg Q4H PRN IVP PAIN 4-10 02/04/17 12:45 02/11/17 12:44 02/04/17 18:15 Olanzapine (ZyPREXA Zydis) 5 mg DAILY ORAL 02/03/17 13:30 03/05/17 13:29 02/04/17 08:36 Ondansetron HCl (Zofran) 4 mg Q6H PRN IVP Nausea & Vomiting 01/29/17 22:45 02/28/17 22:44 Paroxetine HCl (Paxil) 20 mg BEDTIME ORAL 02/02/17 21:00 03/04/17 20:59 02/03/17 21:47 Polyethylene Glycol (Miralax) 17 gm DAILYPRN PRN ORAL Constipation 01/29/17 22:45 02/28/17 22:44 Promethazine HCl (Phenergan) 25 mg Q6H PRN IM Nausea & Vomiting 02/01/17 14:45 03/03/17 14:44 Promethazine HCl/ Codeine (Phenergan with Codeine) 5 ml Q4H PRN ORAL For Cough 02/01/17 15:00 03/03/17 14:59 Ranitidine HCl (Zantac) 150 mg BEDTIME ORAL 01/30/17 21:00 03/01/17 20:59 02/03/17 21:47 Theophylline (Brett-Dur) 100 mg DAILY ORAL 02/01/17 15:00 18 14:59 02/04/17 08:35 Allergies: Coded Allergies: No Known Allergies (Unverified , 01/29/17) Objective Last Vital Signs Date Time Temp Pulse Resp B/P (MAP) Pulse Ox O2 Delivery O2 Flow Rate FiO2 02/04/17 21:00 122 02/04/17 20:17 90 Nasal Cannula 4.0 36 02/04/17 20:17 20 02/04/17 20:00 97.9 142/71 Laboratory Tests Test 02/04/17 08:00 02/04/17 18:10 White Blood Count 11.1 K/UL (4.8-10.8) H 10.3 K/UL (4.8-10.8) Red Blood Count 4.19 M/UL (4.70-6.10) L 4.38 M/UL (4.70-6.10) L Hemoglobin 13.1 G/DL (14.2-18.0) L 13.5 G/DL (14.2-18.0) L Hematocrit 41.3 % (42.0-52.0) L 42.7 % (42.0-52.0) Mean Corpuscular Volume 99 FL (80-99) 97 FL (80-99) Mean Corpuscular Hemoglobin 31.2 PG (27.0-31.0) H 30.7 PG (27.0-31.0) Mean Corpuscular Hemoglobin Concent 31.6 G/DL (32.0-36.0) L 31.5 G/DL (32.0-36.0) L Red Cell Distribution Width 12.8 % (11.6-14.8) 12.7 % (11.6-14.8) Platelet Count 201 K/UL (150-450) 211 K/UL (150-450) Mean Platelet Volume 7.5 FL (6.5-10.1) 7.5 FL (6.5-10.1) Neutrophils (%) (Auto) % (45.0-75.0) 88.5 % (45.0-75.0) H Lymphocytes (%) (Auto) % (20.0-45.0) 2.7 % (20.0-45.0) L Monocytes (%) (Auto) % (1.0-10.0) 7.8 % (1.0-10.0) Eosinophils (%) (Auto) % (0.0-3.0) 0.0 % (0.0-3.0) Basophils (%) (Auto) % (0.0-2.0) 0.9 % (0.0-2.0) Differential Total Cells Counted 100 Neutrophils % (Manual) 83 % (45-75) H Lymphocytes % (Manual) 6 % (20-45) L Monocytes % (Manual) 11 % (1-10) H Eosinophils % (Manual) 0 % (0-3) Basophils % (Manual) 0 % (0-2) Band Neutrophils 0 % (0-8) Platelet Estimate Adequate Platelet Morphology Normal Red Blood Cell Morphology Hypochromasia 1+ Sodium Level 137 MMOL/L (136-145) Potassium Level 5.6 MMOL/L (3.5-5.1) H Chloride Level 102 MMOL/L (98-107) Carbon Dioxide Level 30 MMOL/L (21-32) Anion Gap 5 mmol/L (5-15) Blood Urea Nitrogen 48 mg/dL (7-18) H Creatinine 2.5 MG/DL (0.55-1.30) H Estimat Glomerular Filtration Rate 31.6 mL/min (>60) Glucose Level 100 MG/DL (74-106) Calcium Level 9.3 MG/DL (8.5-10.1) Prothrombin Time 10.3 SEC (9.30-11.50) Prothromb Time International Ratio 1.0 (0.9-1.1) Activated Partial Thromboplast Time 27 SEC (23-33) Intake and Output 02/04/17 02/05/17 19:00 07:00 Intake Total 1080 ml Balance 1080 ml IV Total 900 ml Other 180 ml # Voids 1 Channing Crooks MD Feb 04, 2017 23:41
[2017-02-05] VITALS (7 sets, daily range): BP systolic 82–156; BP diastolic 56–76
[2017-02-05] MEDS: D5NS 1,000 ML IV SCH ×3 (04:19→23:56)
[2017-02-05] MEDS: Theophylline ER 100mg ORAL SCH (09:02)
[2017-02-05] MEDS: ZyPREXA Zydis 5mg tab ORAL SCH (09:03)
--- NOTE | 2017-02-05 09:16 | Diagnostic Imaging Report ---
Indication: Dyspnea Technique: XRAY CHEST 1 V Comparison: 01/02/17 Findings: Heart size and mediastinal contours are stable. There is persistent interstitial opacification/edema and patchy bilateral airspace opacities and bilateral pleural effusions. There is slight interval worsening of aeration of the right base. There is no pneumothorax. No acute osseous abnormality seen. Impression: Interval worsening of aeration at the right lower lung. Additional findings without significant interval change.
--- NOTE | 2017-02-05 09:56 | Internal Med Progress Note ---
Subjective Physician Name ValeriyChanning Attending Physician Williams Escobar Current Medications Medications (Trade) Dose Ordered Sig/Matthew Route PRN Reason Start Time Stop Time Status Last Admin Dose Admin Acetaminophen (Tylenol) 650 mg Q4H PRN ORAL FEVER 01/29/17 22:45 02/28/17 22:44 Dextrose (Dextrose 50%) STAT PRN IV Hypoglycemia 01/29/17 22:45 02/28/17 22:44 Dextrose/Sodium Chloride 1,000 ml @ 100 mls/hr Q10H IV 02/03/17 11:45 03/05/17 11:44 02/05/17 04:19 Haloperidol Lactate (Haldol) 2 mg Q4H PRN IM Agitation 02/04/17 13:30 03/06/17 13:29 Levofloxacin 150 ml @ 100 mls/hr EVERY OTHER DAY IVPB 02/03/17 13:00 02/10/17 12:59 02/05/17 09:03 Lidocaine (Xylocaine 1% MPF 5ml) 10 ml Q4H PRN HHN cough 02/01/17 14:45 03/03/17 14:44 Morphine Sulfate (Morphine Sulfate) 4 mg Q4H PRN IVP PAIN 4-10 02/04/17 12:45 02/11/17 12:44 02/04/17 18:15 Olanzapine (ZyPREXA Zydis) 5 mg DAILY ORAL 02/03/17 13:30 03/05/17 13:29 02/05/17 09:03 Ondansetron HCl (Zofran) 4 mg Q6H PRN IVP Nausea & Vomiting 01/29/17 22:45 02/28/17 22:44 Paroxetine HCl (Paxil) 20 mg BEDTIME ORAL 02/02/17 21:00 03/04/17 20:59 02/03/17 21:47 Polyethylene Glycol (Miralax) 17 gm DAILYPRN PRN ORAL Constipation 01/29/17 22:45 02/28/17 22:44 Promethazine HCl (Phenergan) 25 mg Q6H PRN IM Nausea & Vomiting 02/01/17 14:45 03/03/17 14:44 Promethazine HCl/ Codeine (Phenergan with Codeine) 5 ml Q4H PRN ORAL For Cough 02/01/17 15:00 03/03/17 14:59 Ranitidine HCl (Zantac) 150 mg BEDTIME ORAL 01/30/17 21:00 03/01/17 20:59 02/03/17 21:47 Theophylline (Brett-Dur) 100 mg DAILY ORAL 02/01/17 15:00 03/03/17 14:59 02/05/17 09:02 Allergies: Coded Allergies: No Known Allergies (Unverified , 01/29/17) Subjective awake but confused, unable answer questions appropriately, family member at bedside. on Venti mask, + SOB Objective Last Vital Signs Date Time Temp Pulse Resp B/P (MAP) Pulse Ox O2 Delivery O2 Flow Rate FiO2 02/05/17 08:00 97.7 111 20 156/69 90 Non-Rebreather 15.0 100 Laboratory Tests Test 02/04/17 18:10 White Blood Count 10.3 K/UL (4.8-10.8) Red Blood Count 4.38 M/UL (4.70-6.10) L Hemoglobin 13.5 G/DL (14.2-18.0) L Hematocrit 42.7 % (42.0-52.0) Mean Corpuscular Volume 97 FL (80-99) Mean Corpuscular Hemoglobin 30.7 PG (27.0-31.0) Mean Corpuscular Hemoglobin Concent 31.5 G/DL (32.0-36.0) L Red Cell Distribution Width 12.7 % (11.6-14.8) Platelet Count 211 K/UL (150-450) Mean Platelet Volume 7.5 FL (6.5-10.1) Neutrophils (%) (Auto) 88.5 % (45.0-75.0) H Lymphocytes (%) (Auto) 2.7 % (20.0-45.0) L Monocytes (%) (Auto) 7.8 % (1.0-10.0) Eosinophils (%) (Auto) 0.0 % (0.0-3.0) Basophils (%) (Auto) 0.9 % (0.0-2.0) Prothrombin Time 10.3 SEC (9.30-11.50) Prothromb Time International Ratio 1.0 (0.9-1.1) Activated Partial Thromboplast Time 27 SEC (23-33) Objective General: severe SOB on Venti Mask , family member at bedside. responsive with open eyes but unable to F/U with commands. HEENT: sclera anicteric, PERRL, Neck: Supple, Elevated significant jugular venous distention, Lungs: poor inspiratory effort, Using accessory muscle, decrease air on bases no Wheeze. Heart: Regular rate and rhythm, distant heart sound, normal S1/S2, no murmurs Extremities: No Cyanosis , clubbing +1 edema. Neuro: CN2-12 intact, Able to move all extremities Assessment/Plan Assessment/Plan (1) Pneumonia (2) HTN (hypertension) (3) Stage 4 Lung cancer (4) Acute Hypoxia respiratory failure. (5) Acute Encephalopathy (6) GRACIELA (7) Hyperkalemia (8) Anasarca (9) Bilateral pleural effusion R>L Plan: poor prognosis Abx: Mikael will discuss with family member regarding Code status Thoracocentesis today Monitor BP Monitor Labs Channing Crooks MD Feb 05, 2017 09:56
[2017-02-05] MEDS ORDERED: Sodium Polystyrene Sulfonate 15gm Powder ORAL ONE (10:00)
--- NOTE | 2017-02-05 10:36 | Diagnostic Imaging Report ---
Indication: Shortness of breath Technique: Limited grayscale imaging of the chest to assess for pleural effusion. Comparison: Correction made to concurrent CT of the chest. Findings: Bilateral pleural effusions are identified, right greater than left, with adjacent compressive atelectasis. Impression: Bilateral pleural effusions, right greater the left.
[2017-02-05 10:40] LABS: ANION GAP 8 mmol/L (5-15); CALCIUM 9.6 MG/DL (8.5-10.1); CARBON DIOXIDE 26 MMOL/L (21-32); CHLORIDE 103 MMOL/L (98-107); CREATININE 2.8 MG/DL (0.55-1.30); GLOMERULAR FILTRATION RATE 27.8 mL/min (>60); POTASSIUM 5.8 MMOL/L (3.5-5.1); SODIUM 137 MMOL/L (136-145)
[2017-02-05] MEDS: Morphine Sulfate 4mg/ml Inj IVP PRN ×2 (10:45→15:21)
--- NOTE | 2017-02-05 11:25 | Cardiology Report ---
APPROVED REPORT EKG Measurement Heart [id number] ND [id number] [id number] Sinus tachycardia with occasional premature ventricular complexes and fusion complexes Left posterior fascicular block Nonspecific T wave abnormality Abnormal ECG
--- NOTE | 2017-02-05 13:40 | Infectious Diseases Prog Note ---
Assessment/Plan Assessment/Plan ASSESSMENT: #. The patient is a 66-year-old male with multiple history of pneumonia-rule out post obstructive pneumonia versus healthcare-associated pneumonia. -CT chest/abd/p w/o: Increased right lung parenchymal disease, presumably infiltrates or edema, as well as increased right lung atelectasis as detailed above, since prior exam of 3 days earlier. Left upper and lower lobe masslike lesions, suspicious for lung carcinoma, also previously described. Previously described right lung masslike opacities are currently somewhat obscured by the surrounding evolving parenchymal disease. Bilateral large pleural effusions, not significantly changed. Mediastinal lymphadenopathy, also previously described, suspect metastatic. Prominent bilateral axillary nodes, significance uncertain, in retrospect also evident previously. Pulmonary arterial enlargement , as previously described, consistent with pulmonary arterial hypertension -CXR 01/29: Basilar infiltrates either inflammatory or asymmetric edema noted. -sp cx K.pna (S Cipro, bactrim, Ceftriaxone), S. maltophila (S bactrim, levaquin) and Enterobacter cloacae(S. Levaquin/cipro, bactrim, ceftriaxone; I Imipenem); repeat 02/01 +4 S. maltophila (S levaquin, bactrim) -Bcx NTD #Mild leukocytosis- possible reactive, now resolved #GRACIELA- possible Bactrim related, contranst nephropathy vs multifactorial- worsening #Acute encephalopathy- possible Meropenem related vs multifactorial #B/l large pleural effusions- empyema, parapneumonic vs malignant related #Afebrile #. Stage IV lung cancer. -CT Chest/abd/p w/ 02/01: Left suprahilar spiculated lung mass, measuring 3.8 cm in diameter. This is consistent with stated clinical history of lung carcinoma. Other masslike opacities in the lungs bilaterally, could represent synchronous lung carcinomas or areas of fibrotic change. Mediastinal lymphadenopathy, likely metastatic. Evidence of anasarca, with large bilateral pleural effusions, small amount of ascites, generalized edema of the subcutaneous, mediastinal, and abdominal fat. COPD changes. Evidence of scattered areas of chronic fibrotic change within both lungs. Dilated right main pulmonary artery, consistent with pulmonary hypertension. Narrowing of the left main pulmonary artery and lumbar branches by the left lung mass. Occlusion of the right subclavian and right innominate veins. Evidence of abundant venous collaterals No acute abdominal process other than the ascites. 5 mm hyperenhancing area in segment 4A on both phases. Most likely area of arterial portal venous shunting, small hepatocellular carcinoma not completely excludable but unlikely. Borderline retroperitoneal lymphadenopathy, nonspecific. L2 vertebral body wedge deformity, may reflect a compression fracture deformity of indeterminate age. Liver cysts. Subcentimeter low- attenuation lesions which are too small tocharacterize, most likely benign cysts or bile hamartomas. #B/l pleural effusions- suspect malignant related > pneumonic -CXR 02/01: Large bilateral pleural effusions have increased on both sides. Interstitial congestion and basilar atelectatic changes persists, stable.. #. History of multiple adenopathy in the thoracic and neck. #. History of hypertension. PLAN: - Continue Levaquin 750m q48hr abx d #06/08 (will do IV for now until mental status improved and can take PO) -if GFR >50, then switch levaquin frequency to daily -02/03 SP Meropenem #5, bactrim #2 -02/01 IV Vancomycin #4 -01/30 SP Cefepime #2. -for thoracentesis today -cell count, LDH, prot, pH and cultures -. Monitor CBC/BMP, temperaturs -. Monitor cultures (blood and sputum). - Heme onc f/u Thank you, Dr. Villegas, for allowing me to participate in the care of this patient. I will follow the patient with you during this hospitalization. Discussed with Dr Escobar Subjective Allergies: Coded Allergies: No Known Allergies (Unverified , 01/29/17) Subjective afebrile leukocytosis resolved Cr worsening on NRB for thoracentesis today Objective Vital Signs Last 24 Hour Vital Signs Date Time Temp Pulse Resp B/P (MAP) Pulse Ox O2 Delivery O2 Flow Rate FiO2 02/05/17 12:00 102 02/05/17 12:00 97.8 90 18 133/70 90 Non-Rebreather 15.0 100 02/05/17 11:15 97.7 02/05/17 08:00 97.7 111 20 156/69 90 Non-Rebreather 15.0 100 02/05/17 08:00 99 02/05/17 07:50 90 Non-Rebreather 15.0 100 02/05/17 07:50 Non-Rebreather 15.0 100 02/05/17 07:50 107 20 Non-Rebreather 15.0 100 02/05/17 04:00 127 02/05/17 04:00 97.7 114 22 98/56 90 02/05/17 00:00 118 02/05/17 00:00 97.7 118 12 98/76 81 Non-Rebreather 02/04/17 20:17 90 Nasal Cannula 4.0 36 02/04/17 20:17 111 20 Nasal Cannula 4.0 36 02/04/17 20:17 Nasal Cannula 4.0 36 02/04/17 20:00 97.9 114 18 142/71 90 Nasal Cannula 02/04/17 20:00 122 02/04/17 16:00 85 Nasal Cannula 5.0 02/04/17 16:00 97.5 109 18 105/59 85 02/04/17 16:00 111 Height (Feet): 5 Height (Inches): 11.00 Weight (Pounds): 160 Objective HEENT: No pale conjunctivae. No icterus. NECK: No lymphadenopathy. CHEST: Coarse breathing sounds. HEART: S1 and S2. ABDOMEN: Soft. The patient has mild epigastric tenderness. The patient has also epigastric distention. EXTREMITIES: No cyanosis. NEUROLOGIC: confused Laboratory Tests Test 02/04/17 18:10 02/05/17 09:50 White Blood Count 10.3 K/UL (4.8-10.8) Red Blood Count 4.38 M/UL (4.70-6.10) L Hemoglobin 13.5 G/DL (14.2-18.0) L Hematocrit 42.7 % (42.0-52.0) Mean Corpuscular Volume 97 FL (80-99) Mean Corpuscular Hemoglobin 30.7 PG (27.0-31.0) Mean Corpuscular Hemoglobin Concent 31.5 G/DL (32.0-36.0) L Red Cell Distribution Width 12.7 % (11.6-14.8) Platelet Count 211 K/UL (150-450) Mean Platelet Volume 7.5 FL (6.5-10.1) Neutrophils (%) (Auto) 88.5 % (45.0-75.0) H Lymphocytes (%) (Auto) 2.7 % (20.0-45.0) L Monocytes (%) (Auto) 7.8 % (1.0-10.0) Eosinophils (%) (Auto) 0.0 % (0.0-3.0) Basophils (%) (Auto) 0.9 % (0.0-2.0) Prothrombin Time 10.3 SEC (9.30-11.50) Prothromb Time International Ratio 1.0 (0.9-1.1) Activated Partial Thromboplast Time 27 SEC (23-33) Sodium Level 137 MMOL/L (136-145) Potassium Level 5.8 MMOL/L (3.5-5.1) H Chloride Level 103 MMOL/L (98-107) Carbon Dioxide Level 26 MMOL/L (21-32) Anion Gap 8 mmol/L (5-15) Blood Urea Nitrogen 75 mg/dL (7-18) H Creatinine 2.8 MG/DL (0.55-1.30) H Estimat Glomerular Filtration Rate 27.8 mL/min (>60) Glucose Level 113 MG/DL (74-106) H Calcium Level 9.6 MG/DL (8.5-10.1) Current Medications Medications (Trade) Dose Ordered Sig/Matthew Route PRN Reason Start Time Stop Time Status Last Admin Dose Admin Acetaminophen (Tylenol) 650 mg Q4H PRN ORAL FEVER 01/29/17 22:45 02/28/17 22:44 Dextrose (Dextrose 50%) STAT PRN IV Hypoglycemia 01/29/17 22:45 02/28/17 22:44 Dextrose/Sodium Chloride 1,000 ml @ 100 mls/hr Q10H IV 02/03/17 11:45 03/05/17 11:44 02/05/17 04:19 Haloperidol Lactate (Haldol) 2 mg Q4H PRN IM Agitation 02/04/17 13:30 03/06/17 13:29 Levofloxacin 150 ml @ 100 mls/hr EVERY OTHER DAY IVPB 02/03/17 13:00 02/10/17 12:59 02/05/17 09:03 Lidocaine (Xylocaine 1% MPF 5ml) 10 ml Q4H PRN HHN cough 02/01/17 14:45 03/03/17 14:44 Morphine Sulfate (Morphine Sulfate) 4 mg Q4H PRN IVP PAIN 4-10 02/04/17 12:45 02/11/17 12:44 02/05/17 10:45 Olanzapine (ZyPREXA Zydis) 5 mg DAILY ORAL 02/03/17 13:30 03/05/17 13:29 02/05/17 09:03 Ondansetron HCl (Zofran) 4 mg Q6H PRN IVP Nausea & Vomiting 01/29/17 22:45 02/28/17 22:44 Paroxetine HCl (Paxil) 20 mg BEDTIME ORAL 02/02/17 21:00 03/04/17 20:59 02/03/17 21:47 Polyethylene Glycol (Miralax) 17 gm DAILYPRN PRN ORAL Constipation 01/29/17 22:45 02/28/17 22:44 Promethazine HCl (Phenergan) 25 mg Q6H PRN IM Nausea & Vomiting 02/01/17 14:45 03/03/17 14:44 Promethazine HCl/ Codeine (Phenergan with Codeine) 5 ml Q4H PRN ORAL For Cough 02/01/17 15:00 03/03/17 14:59 Ranitidine HCl (Zantac) 150 mg BEDTIME ORAL 01/30/17 21:00 03/01/17 20:59 02/03/17 21:47 Neisha Reyes M.D. Feb 05, 2017 13:40
--- NOTE | 2017-02-05 14:10 | General Progress Note ---
Assessment/Plan Assessment/Plan Assessment and Recs: #. Metastatic lung cancer, recently diagnosed on 01/21/17 at [facility] --> currently is very confused, has been deteriorating, cr has been worse, with renal failure --> patient performance status is stable, needs followup at [facility] --> followup with palliative/hospice, does help with overall survival for lung cancer patients, especially in light of worsening medical condition --> consider code status change, given progressive worsening status --> may need PT/OT and placement to SNIF #. Anemia, mild at this time. Continue to monitor # Shortness of breath 2/2 lung cancer #. Chronic DVT BLE. (superficial femoral vein is a deep vein) --> on Xarelto. Subjective Constitutional: Reports: no symptoms HEENT: Reports: no symptoms Cardiovascular: Reports: no symptoms Respiratory: Reports: no symptoms Gastrointestinal/Abdominal: Reports: no symptoms Genitourinary: Reports: no symptoms Neurologic/Psychiatric: Reports: no symptoms Endocrine: Reports: no symptoms Hematologic/Lymphatic: Reports: anemia Allergies: Coded Allergies: No Known Allergies (Unverified , 01/29/17) Subjective NAD Objective Last 24 Hour Vital Signs Date Time Temp Pulse Resp B/P (MAP) Pulse Ox O2 Delivery O2 Flow Rate FiO2 02/05/17 12:00 102 02/05/17 12:00 97.8 90 18 133/70 90 Non-Rebreather 15.0 100 02/05/17 11:15 97.7 02/05/17 08:00 97.7 111 20 156/69 90 Non-Rebreather 15.0 100 02/05/17 08:00 99 02/05/17 07:50 90 Non-Rebreather 15.0 100 02/05/17 07:50 Non-Rebreather 15.0 100 02/05/17 07:50 107 20 Non-Rebreather 15.0 100 02/05/17 04:00 127 02/05/17 04:00 97.7 114 22 98/56 90 02/05/17 00:00 118 02/05/17 00:00 97.7 118 12 98/76 81 Non-Rebreather 02/04/17 20:17 90 Nasal Cannula 4.0 36 02/04/17 20:17 111 20 Nasal Cannula 4.0 36 02/04/17 20:17 Nasal Cannula 4.0 36 02/04/17 20:00 97.9 114 18 142/71 90 Nasal Cannula 02/04/17 20:00 122 02/04/17 16:00 85 Nasal Cannula 5.0 02/04/17 16:00 97.5 109 18 105/59 85 02/04/17 16:00 111 Laboratory Tests 02/04/17 18:10: White Blood Count 10.3, Red Blood Count 4.38L, Hemoglobin 13.5L, Hematocrit 42.7 , Mean Corpuscular Volume 97, Mean Corpuscular Hemoglobin 30.7, Mean Corpuscular Hemoglobin Concent 31.5L, Red Cell Distribution Width 12.7, Platelet Count 211, Mean Platelet Volume 7.5, Neutrophils (%) (Auto) 88.5H, Lymphocytes (%) (Auto) 2.7L, Monocytes (%) (Auto) 7.8, Eosinophils (%) (Auto) 0.0, Basophils (%) (Auto) 0.9, Prothrombin Time 10.3, Prothromb Time International Ratio 1.0, Activated Partial Thromboplast Time 27 02/05/17 09:50: Sodium Level 137, Potassium Level 5.8H, Chloride Level 103, Carbon Dioxide Level 26, Anion Gap 8, Blood Urea Nitrogen 75H, Creatinine 2.8H, Estimat Glomerular Filtration Rate 27.8, Glucose Level 113H, Calcium Level 9.6 Height (Feet): 5 Height (Inches): 11.00 Weight (Pounds): 160 General Appearance: alert EENT: TMs normal Neck: supple Cardiovascular: regular rhythm Respiratory/Chest: lungs clear Abdomen: no organomegaly Extremities: non-tender Edema: 1+ Leg (L), 1+ Leg (R) Edema: mild edema Neurologic: alert Skin: warm/dry Negrito Gloria Feb 05, 2017 14:10
--- NOTE | 2017-02-05 15:00 | Pulmonology Progress Note ---
Assessment/Plan Problems: (1) Respiratory distress (2) Stage 4 lung cancer (3) Hypoxia (4) Pneumonia (5) Emphysema (6) Severe protein-calorie malnutrition Assessment/Plan I discussed with the ex about the goal and plan of care, She is aware of the imminent passing. she hopes that he is alive by tonight so the sister arrives and sees him one more time. respiratory treatment antitussives lidocaine inhalation for cough increase morphine IV will start on morphine drip after pts sister arrives. Subjective ROS Limited/Unobtainable: No Interval Events: looks comfortable sedated, Allergies: Coded Allergies: No Known Allergies (Unverified , 01/29/17) Objective Last 24 Hour Vital Signs Date Time Temp Pulse Resp B/P (MAP) Pulse Ox O2 Delivery O2 Flow Rate FiO2 02/05/17 12:00 102 02/05/17 12:00 97.8 90 18 133/70 90 Non-Rebreather 15.0 100 02/05/17 11:15 97.7 02/05/17 08:00 97.7 111 20 156/69 90 Non-Rebreather 15.0 100 02/05/17 08:00 99 02/05/17 07:50 90 Non-Rebreather 15.0 100 02/05/17 07:50 Non-Rebreather 15.0 100 02/05/17 07:50 107 20 Non-Rebreather 15.0 100 02/05/17 04:00 127 02/05/17 04:00 97.7 114 22 98/56 90 02/05/17 00:00 118 02/05/17 00:00 97.7 118 12 98/76 81 Non-Rebreather 02/04/17 20:17 90 Nasal Cannula 4.0 36 02/04/17 20:17 111 20 Nasal Cannula 4.0 36 02/04/17 20:17 Nasal Cannula 4.0 36 02/04/17 20:00 97.9 114 18 142/71 90 Nasal Cannula 02/04/17 20:00 122 02/04/17 16:00 85 Nasal Cannula 5.0 02/04/17 16:00 97.5 109 18 105/59 85 02/04/17 16:00 111 General Appearance: cachetic Respiratory/Chest: chest wall non-tender, lungs clear, chest wall tender Cardiovascular: normal peripheral pulses Abdomen: normal bowel sounds, no organomegaly Extremities: no cyanosis Skin: no rash, no lesions Laboratory Tests 02/04/17 18:10: White Blood Count 10.3, Red Blood Count 4.38L, Hemoglobin 13.5L, Hematocrit 42.7 , Mean Corpuscular Volume 97, Mean Corpuscular Hemoglobin 30.7, Mean Corpuscular Hemoglobin Concent 31.5L, Red Cell Distribution Width 12.7, Platelet Count 211, Mean Platelet Volume 7.5, Neutrophils (%) (Auto) 88.5H, Lymphocytes (%) (Auto) 2.7L, Monocytes (%) (Auto) 7.8, Eosinophils (%) (Auto) 0.0, Basophils (%) (Auto) 0.9, Prothrombin Time 10.3, Prothromb Time International Ratio 1.0, Activated Partial Thromboplast Time 27 02/05/17 09:50: Sodium Level 137, Potassium Level 5.8H, Chloride Level 103, Carbon Dioxide Level 26, Anion Gap 8, Blood Urea Nitrogen 75H, Creatinine 2.8H, Estimat Glomerular Filtration Rate 27.8, Glucose Level 113H, Calcium Level 9.6 Current Medications Medications (Trade) Dose Ordered Sig/Matthew Route PRN Reason Start Time Stop Time Status Last Admin Dose Admin Acetaminophen (Tylenol) 650 mg Q4H PRN ORAL FEVER 01/29/17 22:45 02/28/17 22:44 Dextrose (Dextrose 50%) STAT PRN IV Hypoglycemia 01/29/17 22:45 02/28/17 22:44 Dextrose/Sodium Chloride 1,000 ml @ 100 mls/hr Q10H IV 02/03/17 11:45 03/05/17 11:44 02/05/17 14:01 Haloperidol Lactate (Haldol) 2 mg Q4H PRN IM Agitation 02/04/17 13:30 03/06/17 13:29 Levofloxacin 150 ml @ 100 mls/hr EVERY OTHER DAY IVPB 02/03/17 13:00 02/10/17 12:59 02/05/17 09:03 Lidocaine (Xylocaine 1% MPF 5ml) 10 ml Q4H PRN HHN cough 02/01/17 14:45 03/03/17 14:44 Morphine Sulfate (Morphine Sulfate) 4 mg Q4H PRN IVP PAIN 4-10 02/04/17 12:45 02/11/17 12:44 02/05/17 10:45 Olanzapine (ZyPREXA Zydis) 5 mg DAILY ORAL 02/03/17 13:30 03/05/17 13:29 02/05/17 09:03 Ondansetron HCl (Zofran) 4 mg Q6H PRN IVP Nausea & Vomiting 01/29/17 22:45 02/28/17 22:44 Paroxetine HCl (Paxil) 20 mg BEDTIME ORAL 02/02/17 21:00 03/04/17 20:59 02/03/17 21:47 Polyethylene Glycol (Miralax) 17 gm DAILYPRN PRN ORAL Constipation 01/29/17 22:45 02/28/17 22:44 Promethazine HCl (Phenergan) 25 mg Q6H PRN IM Nausea & Vomiting 02/01/17 14:45 03/03/17 14:44 Promethazine HCl/ Codeine (Phenergan with Codeine) 5 ml Q4H PRN ORAL For Cough 02/01/17 15:00 03/03/17 14:59 Ranitidine HCl (Zantac) 150 mg BEDTIME ORAL 01/30/17 21:00 03/01/17 20:59 02/03/17 21:47 HONEY BISHOP Feb 05, 2017 15:00
[2017-02-05] MEDS: Sodium Polystyrene Sulfonate Enema RECTAL ONE ×2 (15:46→15:58)
[2017-02-05] MEDS ORDERED: NovoLOG Insulin Flexpen SUBQ ONE (17:30)
[2017-02-05] MEDS: PARoxetine 20mg tab ORAL SCH (20:52)
--- NOTE | 2017-02-05 22:00 | Progress Note ---
DATE: 02/05/2017 SUBJECTIVE: The patient continues to be depressed and irritable. He has anxiety, depressed mood, anhedonia, worthlessness, hopelessness, decreased energy, poor insight and judgment into his mental condition. The patient is having hopelessness and helplessness. MENTAL STATUS EXAMINATION: The patient is alert and oriented to time, self, place, and situation he is in. Mood is depressed. Affect is constricted. Congruent mood. Thought process is concrete. Thought content, no suicidal or homicidal ideation. ASSESSMENT: 1. Depression. 2. Anxiety. PLAN: 1. We will continue current medication. 2. Provide the patient with supportive therapy and reality orientation. 3. We will continue to follow and readjust the medications. Kobi Rios M.D. DR: DINORAH JOB#: [id number] CC:
[2017-02-06] VITALS (7 sets, daily range): BP systolic 77–107; BP diastolic 47–77
[2017-02-06] MEDS: ZyPREXA Zydis 5mg tab ORAL SCH ×2 (08:45→08:55)
[2017-02-06] MEDS: D5NS 1,000 ML IV SCH (08:48)
--- NOTE | 2017-02-06 09:03 | Infectious Diseases Prog Note ---
Assessment/Plan Assessment/Plan ASSESSMENT: #. The patient is a 66-year-old male with multiple history of pneumonia-rule out post obstructive pneumonia versus healthcare-associated pneumonia. -CT chest/abd/p w/o: Increased right lung parenchymal disease, presumably infiltrates or edema, as well as increased right lung atelectasis as detailed above, since prior exam of 3 days earlier. Left upper and lower lobe masslike lesions, suspicious for lung carcinoma, also previously described. Previously described right lung masslike opacities are currently somewhat obscured by the surrounding evolving parenchymal disease. Bilateral large pleural effusions, not significantly changed. Mediastinal lymphadenopathy, also previously described, suspect metastatic. Prominent bilateral axillary nodes, significance uncertain, in retrospect also evident previously. Pulmonary arterial enlargement , as previously described, consistent with pulmonary arterial hypertension -CXR 01/29: Basilar infiltrates either inflammatory or asymmetric edema noted. -sp cx K.pna (S Cipro, bactrim, Ceftriaxone), S. maltophila (S bactrim, levaquin) and Enterobacter cloacae(S. Levaquin/cipro, bactrim, ceftriaxone; I Imipenem); repeat 02/01 +4 S. maltophila (S levaquin, bactrim) -Bcx NTD #Mild leukocytosis- possible reactive, now resolved #GRACIELA- possible Bactrim related, contranst nephropathy vs multifactorial- worsening #Acute encephalopathy- possible Meropenem related vs multifactorial #B/l large pleural effusions- empyema, parapneumonic vs malignant related #Afebrile #. Stage IV lung cancer. -CT Chest/abd/p w/ 02/01: Left suprahilar spiculated lung mass, measuring 3.8 cm in diameter. This is consistent with stated clinical history of lung carcinoma. Other masslike opacities in the lungs bilaterally, could represent synchronous lung carcinomas or areas of fibrotic change. Mediastinal lymphadenopathy, likely metastatic. Evidence of anasarca, with large bilateral pleural effusions, small amount of ascites, generalized edema of the subcutaneous, mediastinal, and abdominal fat. COPD changes. Evidence of scattered areas of chronic fibrotic change within both lungs. Dilated right main pulmonary artery, consistent with pulmonary hypertension. Narrowing of the left main pulmonary artery and lumbar branches by the left lung mass. Occlusion of the right subclavian and right innominate veins. Evidence of abundant venous collaterals No acute abdominal process other than the ascites. 5 mm hyperenhancing area in segment 4A on both phases. Most likely area of arterial portal venous shunting, small hepatocellular carcinoma not completely excludable but unlikely. Borderline retroperitoneal lymphadenopathy, nonspecific. L2 vertebral body wedge deformity, may reflect a compression fracture deformity of indeterminate age. Liver cysts. Subcentimeter low- attenuation lesions which are too small tocharacterize, most likely benign cysts or bile hamartomas. #B/l pleural effusions- suspect malignant related > pneumonic -CXR 02/01: Large bilateral pleural effusions have increased on both sides. Interstitial congestion and basilar atelectatic changes persists, stable.. #. History of multiple adenopathy in the thoracic and neck. #. History of hypertension. PLAN: -Measures being targeted towards comfort -if consistent with goals of care can continue Levaquin 750m q48hr abx d #5/ -02/03 SP Meropenem #5, bactrim #2 -02/01 IV Vancomycin #4 -/ SP Cefepime #2. -terminal, poor px Thank you, Dr. Villegas, for allowing me to participate in the care of this patient. I will follow the patient with you during this hospitalization. Discussed with RN and family at bedside. Subjective Allergies: Coded Allergies: No Known Allergies (Unverified , 01/29/17) Subjective afebrile leukocytosis resolved focusing no comfort measures- awaiting for sister for starting morphine drip Objective Vital Signs Last 24 Hour Vital Signs Date Time Temp Pulse Resp B/P (MAP) Pulse Ox O2 Delivery O2 Flow Rate FiO2 02/06/17 08:18 115 22 Non-Rebreather 15.0 100 02/06/17 08:18 80 Non-Rebreather 15.0 100 02/06/17 08:18 Non-Rebreather 15.0 100 02/06/17 07:20 97.7 65 22 106/55 91 02/06/17 04:11 97.0 53 18 105/47 78 Nasal Cannula 15.0 02/06/17 03:44 113 02/06/17 00:04 97.7 109 11 107/77 84 Nasal Cannula 15.0 02/06/17 00:00 122 02/05/17 20:29 Non-Rebreather 15.0 100 02/05/17 20:28 73 Non-Rebreather 15.0 100 02/05/17 20:23 107 11 Non-Rebreather 15.0 100 02/05/17 20:00 99 02/05/17 19:44 97.7 111 11 120/58 84 Nasal Cannula 15.0 100 02/05/17 19:00 97.7 111 11 120/58 84 Nasal Cannula 15.0 02/05/17 16:00 99 02/05/17 16:00 97.8 90 18 82/57 90 Non-Rebreather 15.0 100 112 02/05/17 12:00 102 02/05/17 12:00 97.8 90 18 133/70 90 Non-Rebreather 15.0 100 02/05/17 11:15 97.7 Height (Feet): 5 Height (Inches): 11.00 Weight (Pounds): 160 Objective HEENT: No pale conjunctivae. No icterus. NECK: No lymphadenopathy. CHEST: Coarse breathing sounds. HEART: S1 and S2. ABDOMEN: Soft. The patient has mild epigastric tenderness. The patient has also epigastric distention. EXTREMITIES: No cyanosis. NEUROLOGIC: confused Laboratory Tests Test 02/05/17 09:50 Sodium Level 137 MMOL/L (136-145) Potassium Level 5.8 MMOL/L (3.5-5.1) H Chloride Level 103 MMOL/L (98-107) Carbon Dioxide Level 26 MMOL/L (21-32) Anion Gap 8 mmol/L (5-15) Blood Urea Nitrogen 75 mg/dL (7-18) H Creatinine 2.8 MG/DL (0.55-1.30) H Estimat Glomerular Filtration Rate 27.8 mL/min (>60) Glucose Level 113 MG/DL (74-106) H Calcium Level 9.6 MG/DL (8.5-10.1) Current Medications Medications (Trade) Dose Ordered Sig/Matthew Route PRN Reason Start Time Stop Time Status Last Admin Dose Admin Acetaminophen (Tylenol) 650 mg Q4H PRN ORAL FEVER 01/29/17 22:45 02/28/17 22:44 Dextrose (Dextrose 50%) STAT PRN IV Hypoglycemia 01/29/17 22:45 02/28/17 22:44 Dextrose/Sodium Chloride 1,000 ml @ 100 mls/hr Q10H IV 02/03/17 11:45 03/05/17 11:44 02/06/17 08:48 Haloperidol Lactate (Haldol) 2 mg Q4H PRN IM Agitation 02/04/17 13:30 03/06/17 13:29 Levofloxacin (Levaquin) 750 mg Q48H ORAL 02/07/17 09:00 02/14/17 08:59 Lidocaine (Xylocaine 1% MPF 5ml) 10 ml Q4H PRN HHN cough 02/01/17 14:45 03/03/17 14:44 Morphine Sulfate (Morphine Sulfate) 4 mg Q4H PRN IVP PAIN 4-10 02/04/17 12:45 02/11/17 12:44 02/05/17 15:21 Olanzapine (ZyPREXA Zydis) 5 mg DAILY ORAL 02/03/17 13:30 03/05/17 13:29 02/05/17 09:03 Ondansetron HCl (Zofran) 4 mg Q6H PRN IVP Nausea & Vomiting 01/29/17 22:45 02/28/17 22:44 Paroxetine HCl (Paxil) 20 mg BEDTIME ORAL 02/02/17 21:00 03/04/17 20:59 02/03/17 21:47 Polyethylene Glycol (Miralax) 17 gm DAILYPRN PRN ORAL Constipation 01/29/17 22:45 02/28/17 22:44 Promethazine HCl (Phenergan) 25 mg Q6H PRN IM Nausea & Vomiting 02/01/17 14:45 03/03/17 14:44 Promethazine HCl/ Codeine (Phenergan with Codeine) 5 ml Q4H PRN ORAL For Cough 02/01/17 15:00 03/03/17 14:59 Ranitidine HCl (Zantac) 150 mg BEDTIME ORAL 01/30/17 21:00 03/01/17 20:59 02/03/17 21:47 Neisha Reyes M.D. Feb 06, 2017 09:03
[2017-02-06] MEDS: Morphine Sulfate 4mg/ml Inj IVP PRN (14:05)
[2017-02-06] MEDS ORDERED: PCA HYDROmorphone 1mg/ml 30 ML IV PRN (15:00)
[2017-02-06] MEDS ORDERED: PCA Education Pamphlet MISC ONE ×2 (15:00→15:45)
[2017-02-06] MEDS ORDERED: Rate Change PCA 1 Each MISC PRN (15:00)
[2017-02-06] MEDS ORDERED: Rate Change Narcotic Drip MISC PRN (15:45)
[2017-02-06] MEDS ORDERED: PCA Morphine 30mg/30ml IV PRN ×3 (15:45→16:00)
[2017-02-06] MEDS ORDERED: PCA Morphine 1mg/ml 30 ML IV PRN (16:00)
--- NOTE | 2017-02-06 16:34 | Pulmonology Progress Note ---
Assessment/Plan Problems: (1) Respiratory distress (2) Stage 4 lung cancer (3) Hypoxia (4) Pneumonia (5) Emphysema (6) Severe protein-calorie malnutrition Assessment/Plan I discussed with the ex about the goal and plan of care, She is aware of the imminent passing. she hopes that he is alive by tonight so the sister arrives and sees him one more time. respiratory treatment antitussives lidocaine inhalation for cough start on morphine drip, pts sister arrived Subjective ROS Limited/Unobtainable: No Interval Events: on 100 % NRM Respiratory: Reports: no symptoms Allergies: Coded Allergies: No Known Allergies (Unverified , 01/29/17) Objective Last 24 Hour Vital Signs Date Time Temp Pulse Resp B/P (MAP) Pulse Ox O2 Delivery O2 Flow Rate FiO2 02/06/17 15:05 97.0 106 22 107/59 92 02/06/17 14:20 97.0 02/06/17 12:28 97.0 119 22 105/65 91 02/06/17 12:00 123 02/06/17 10:55 97.0 88 20 105/69 88 02/06/17 08:18 115 22 Non-Rebreather 15.0 100 02/06/17 08:18 80 Non-Rebreather 15.0 100 02/06/17 08:18 Non-Rebreather 15.0 100 02/06/17 08:00 113 02/06/17 07:20 97.7 65 22 106/55 91 02/06/17 04:11 97.0 53 18 105/47 78 Nasal Cannula 15.0 02/06/17 03:44 113 02/06/17 00:04 97.7 109 11 107/77 84 Nasal Cannula 15.0 02/06/17 00:00 122 02/05/17 20:29 Non-Rebreather 15.0 100 02/05/17 20:28 73 Non-Rebreather 15.0 100 02/05/17 20:23 107 11 Non-Rebreather 15.0 100 02/05/17 20:00 99 02/05/17 19:44 97.7 111 11 120/58 84 Nasal Cannula 15.0 100 02/05/17 19:00 97.7 111 11 120/58 84 Nasal Cannula 15.0 Intake and Output 02/06/17 02/07/17 19:00 07:00 Output Total 3 ml Balance -3 ml Output Urine Total 3 ml # Voids 2 General Appearance: cachetic HEENT: normocephalic Respiratory/Chest: chest wall non-tender, lungs clear Cardiovascular: normal peripheral pulses, normal rate Abdomen: normal bowel sounds, soft, non tender, no scars Genitourinary: normal external genitalia Skin: no ulcers Neurologic/Psychiatric: baby attendant II-XII grossly normal Current Medications Medications (Trade) Dose Ordered Sig/Matthew Route PRN Reason Start Time Stop Time Status Last Admin Dose Admin Acetaminophen (Tylenol) 650 mg Q4H PRN ORAL FEVER 01/29/17 22:45 02/28/17 22:44 Dextrose (Dextrose 50%) STAT PRN IV Hypoglycemia 01/29/17 22:45 02/28/17 22:44 Dextrose/Sodium Chloride 1,000 ml @ 100 mls/hr Q10H IV 02/03/17 11:45 03/05/17 11:44 02/06/17 08:48 Haloperidol Lactate (Haldol) 2 mg Q4H PRN IM Agitation 02/04/17 13:30 03/06/17 13:29 02/06/17 09:00 Levofloxacin (Levaquin) 750 mg Q48H ORAL 02/07/17 09:00 02/14/17 08:59 Lidocaine (Xylocaine 1% MPF 5ml) 10 ml Q4H PRN HHN cough 02/01/17 14:45 03/03/17 14:44 Miscellaneous Medication (Narcotic Drip Rate Change) 1 ea DAILY PRN MISC . 02/06/17 15:45 03/08/17 15:44 Miscellaneous Medication (Narcotic Shift Volume) 1 ea Q8HR@07,15,23 MISC 02/06/17 23:00 03/08/17 22:59 Morphine Sulfate 30 ml @ 2 mls/hr VALUE ENGINEER Protocol PRN IV for comfort care 02/06/17 16:00 02/08/17 15:44 02/06/17 15:58 Morphine Sulfate (Morphine Sulfate) 4 mg Q4H PRN IVP PAIN 4-10 02/04/17 12:45 02/11/17 12:44 02/06/17 14:05 Olanzapine (ZyPREXA Zydis) 5 mg DAILY ORAL 02/03/17 13:30 03/05/17 13:29 02/05/17 09:03 Ondansetron HCl (Zofran) 4 mg Q6H PRN IVP Nausea & Vomiting 01/29/17 22:45 02/28/17 22:44 Paroxetine HCl (Paxil) 20 mg BEDTIME ORAL 02/02/17 21:00 03/04/17 20:59 02/03/17 21:47 Polyethylene Glycol (Miralax) 17 gm DAILYPRN PRN ORAL Constipation 01/29/17 22:45 02/28/17 22:44 Promethazine HCl (Phenergan) 25 mg Q6H PRN IM Nausea & Vomiting 02/01/17 14:45 03/03/17 14:44 Promethazine HCl/ Codeine (Phenergan with Codeine) 5 ml Q4H PRN ORAL For Cough 02/01/17 15:00 03/03/17 14:59 Ranitidine HCl (Zantac) 150 mg BEDTIME ORAL 01/30/17 21:00 03/01/17 20:59 02/03/17 21:47 HONEY BISHOP Feb 06, 2017 16:34
[2017-02-06] MEDS ORDERED: PCA shift volume MISC SCH (19:00)
--- NOTE | 2017-02-06 19:05 | Internal Med Progress Note ---
Subjective Physician Name Channing Crokos Attending Physician Williams Escobar Current Medications Medications (Trade) Dose Ordered Sig/Matthew Route PRN Reason Start Time Stop Time Status Last Admin Dose Admin Acetaminophen (Tylenol) 650 mg Q4H PRN ORAL FEVER 01/29/17 22:45 02/28/17 22:44 Dextrose (Dextrose 50%) STAT PRN IV Hypoglycemia 01/29/17 22:45 02/28/17 22:44 Dextrose/Sodium Chloride 1,000 ml @ 100 mls/hr Q10H IV 02/03/17 11:45 03/05/17 11:44 02/06/17 08:48 Haloperidol Lactate (Haldol) 2 mg Q4H PRN IM Agitation 02/04/17 13:30 03/06/17 13:29 02/06/17 09:00 Levofloxacin (Levaquin) 750 mg Q48H ORAL 02/07/17 09:00 02/14/17 08:59 Lidocaine (Xylocaine 1% MPF 5ml) 10 ml Q4H PRN HHN cough 02/01/17 14:45 03/03/17 14:44 Miscellaneous Medication (Narcotic Drip Rate Change) 1 ea DAILY PRN MISC . 02/06/17 15:45 03/08/17 15:44 Miscellaneous Medication (Narcotic Shift Volume) 1 ea Q8HR@07,15,23 MISC 02/06/17 23:00 03/08/17 22:59 Morphine Sulfate 30 ml @ 2 mls/hr GREASE MAKER Protocol PRN IV for comfort care 02/06/17 16:00 02/08/17 15:44 02/06/17 15:58 Morphine Sulfate (Morphine Sulfate) 4 mg Q4H PRN IVP PAIN 4-10 02/04/17 12:45 02/11/17 12:44 02/06/17 14:05 Olanzapine (ZyPREXA Zydis) 5 mg DAILY ORAL 02/03/17 13:30 03/05/17 13:29 02/05/17 09:03 Ondansetron HCl (Zofran) 4 mg Q6H PRN IVP Nausea & Vomiting 01/29/17 22:45 02/28/17 22:44 Paroxetine HCl (Paxil) 20 mg BEDTIME ORAL 02/02/17 21:00 03/04/17 20:59 02/03/17 21:47 Polyethylene Glycol (Miralax) 17 gm DAILYPRN PRN ORAL Constipation 01/29/17 22:45 02/28/17 22:44 Promethazine HCl (Phenergan) 25 mg Q6H PRN IM Nausea & Vomiting 02/01/17 14:45 03/03/17 14:44 Promethazine HCl/ Codeine (Phenergan with Codeine) 5 ml Q4H PRN ORAL For Cough 02/01/17 15:00 03/03/17 14:59 Ranitidine HCl (Zantac) 150 mg BEDTIME ORAL 01/30/17 21:00 03/01/17 20:59 02/03/17 21:47 Allergies: Coded Allergies: No Known Allergies (Unverified , 01/29/17) Subjective not responsive, unable to F/U with commands, family member at bedside. on Venti mask, actively dying. Objective Last Vital Signs Date Time Temp Pulse Resp B/P (MAP) Pulse Ox O2 Delivery O2 Flow Rate FiO2 02/06/17 18:00 16 02/06/17 16:28 97.0 02/06/17 16:00 117 02/06/17 15:05 107/59 92 02/06/17 08:18 Non-Rebreather 15.0 100 Intake and Output 02/06/17 02/07/17 19:00 07:00 Intake Total 900 ml Output Total 3 ml Balance 897 ml IV Total 900 ml Output Urine Total 3 ml # Voids 2 Objective General: severe SOB on Venti Mask , family member at bedside. unresponsive , unable to F/U with commands. HEENT: sclera anicteric, PERRL, Neck: Supple, Elevated significant jugular venous distention, Lungs: poor inspiratory effort, Using accessory muscle, decrease air on bases no Wheeze, Coarse breath sound Heart: Regular rate and rhythm, distant heart sound, normal S1/S2, no murmurs Extremities: No Cyanosis , clubbing +1 edema. Neuro: CN2-12 intact, Able to move all extremities slowly. Assessment/Plan Assessment/Plan (1) Pneumonia (2) HTN (hypertension) (3) Stage 4 Lung cancer (4) Acute Hypoxia respiratory failure. (5) Acute Encephalopathy (6) GRACIELA (7) Hyperkalemia (8) Anasarca (9) Bilateral pleural effusion R>L Plan: poor prognosis / Dying protocol Abx: DC Mikael will discuss with family member regarding comfort care. DNAR code status Morphine drip DC [facility] Channing Crooks MD Feb 06, 2017 19:05
--- NOTE | 2017-02-06 21:12 | General Progress Note ---
Assessment/Plan Assessment/Plan Assessment and Recs: #. Metastatic lung cancer, recently diagnosed on 01/21/17 at [facility] --> currently is very confused, has been deteriorating, cr has been worse, with renal failure --> followup with palliative/hospice, does help with overall survival for lung cancer patients, especially in light of worsening medical condition --> dnr code status --> comfort care measures #. Anemia, mild at this time. Continue to monitor # Shortness of breath 2/2 lung cancer #. Chronic DVT BLE. (superficial femoral vein is a deep vein) --> all medications dc'd Subjective Allergies: Coded Allergies: No Known Allergies (Unverified , 01/29/17) All Systems: reviewed and negative except above Subjective on comfort care Objective Last 24 Hour Vital Signs Date Time Temp Pulse Resp B/P (MAP) Pulse Ox O2 Delivery O2 Flow Rate FiO2 02/06/17 20:00 96.6 126 12 77/56 86 02/06/17 20:00 16 02/06/17 20:00 114 02/06/17 19:00 16 02/06/17 18:00 16 02/06/17 17:30 16 02/06/17 17:00 16 02/06/17 16:45 16 02/06/17 16:30 16 02/06/17 16:28 97.0 02/06/17 16:15 16 02/06/17 16:01 93 Nasal Cannula 15.0 02/06/17 16:00 117 02/06/17 15:05 97.0 106 22 107/59 92 02/06/17 14:20 97.0 02/06/17 12:28 97.0 119 22 105/65 91 02/06/17 12:00 88 Nasal Cannula 15.0 02/06/17 12:00 123 02/06/17 10:55 97.0 88 20 105/69 88 02/06/17 08:18 115 22 Non-Rebreather 15.0 100 02/06/17 08:18 80 Non-Rebreather 15.0 100 02/06/17 08:18 Non-Rebreather 15.0 100 02/06/17 08:00 113 02/06/17 08:00 Nasal Cannula 15.0 02/06/17 07:20 97.7 65 22 106/55 91 02/06/17 04:11 97.0 53 18 105/47 78 Nasal Cannula 15.0 02/06/17 03:44 113 02/06/17 00:04 97.7 109 11 107/77 84 Nasal Cannula 15.0 02/06/17 00:00 122 Intake and Output 02/06/17 02/07/17 19:00 07:00 Intake Total 1200 ml Output Total 3 ml Balance 1197 ml IV Total 1200 ml Output Urine Total 3 ml # Voids 2 Height (Feet): 5 Height (Inches): 11.00 Weight (Pounds): 160 General Appearance: no apparent distress EENT: normal ENT inspection Neck: normal alignment Respiratory/Chest: chest wall non-tender Edema: 1+ Pedal (L), 1+ Pedal (R) Negrito Gloria Feb 06, 2017 21:12
[2017-02-06] MEDS ORDERED: Narcotic Shift Volume MISC SCH (23:00)
[2017-02-06] MEDS ORDERED: NS 500ML ONE (23:14)
[2017-02-06] MEDS ORDERED: Tubing IV Secondary IV ONE (23:14)
[2017-02-06] MEDS ORDERED: D5NS 1000ml IV ONE (23:14)
[2017-02-07] MEDS ORDERED: Narcotic Shift Volume MISC SCH (07:00)
--- NOTE | 2017-02-08 16:46 | General Progress Note ---
Assessment/Plan Status: stable, progressing Subjective Date patient seen: Feb 06, 2017 Allergies: Coded Allergies: No Known Allergies (Unverified , 01/29/17) Subjective the pt is doing better less agitated Objective Height (Feet): 5 Height (Inches): 11.00 Weight (Pounds): 160 Kobi Rios M.D. Feb 08, 2017 16:46
--- NOTE | 2017-02-09 09:01 | Discharge Summary ---
Discharge Summary Hospital Course Date of Admission Jan 29, 2017 at 20:35 Date of Discharge Feb 06, 2017 at 23:15 Admitting Diagnosis hypoxia/sob HPI Charlie Hernandez is a 66 year old male who was admitted on Jan 29, 2017 at 20:35 for Hypoxia,Shortness Of Breath Hospital Course summary #[id number] Discharge Discharge Disposition Patient Discharge Diagnoses: Pedro ([facility]),Luana KELLY Feb 09, 2017 09:01
--- NOTE | 2017-02-09 23:01 | Discharge Summary 2 SIG ---
SUMMARY DATE OF ADMISSION: 01/29/2017 DATE OF EXPIRATION: 02/06/2017. REASON FOR ADMISSION: A 66-year-old male with a newly diagnosed stage IV lung cancer at [facility] on 01/21/2017, presented with dyspnea and generalized weakness. Patient with a history of hypertension and tobacco abuse. The patient reported air hunger. he was unable to catch enough air or take a deep breath. While in the [facility], per the patient, he had a complete workup for chest pain including cardiac catheterization. The patient initially was hypoxemic on presentation and required placement of supplemental oxygen. He was afebrile. Chest x-ray revealed bibasilar infiltrates either inflammatory or asymmetric edema. Pro BNP -949. Troponin negative. Electrolytes were stable. The patient was admitted for further management with respiratory distress, advanced lung CA stage IV, possible pneumonia, hypertension, and history of tobacco abuse. HOSPITAL COURSE: The patient admitted. Pulmonology and Oncology consults initially were requested. The patient was placed on supplemental oxygen. Pulmonary toilet via nebulizing therapy was provided. Theophylline trial started. Antitussive were given as needed. Lidocaine inhalation provided for relief with cough. Sputum was induced. The patient was started initially on empiric antibiotics. ID followed. Initial sputum culture revealed Klebsiella, Stenotrophomonas, Enterobacter. Blood cultures were negative. Repeated sputum culture revealed Stenotrophomonas. Chest x-ray showed bilateral pleural effusions, right more than left. Thoracentesis was ordered, however, at that time the patient became altered and was unstable for procedure. Neurologist consult was requested. Neurologist ordered MRI of the brain to rule out metastatic disease. Patient was started on Seroquel and on Haldol and Ativan as needed for acute exacerbation of psychosis. Oncologist seen the patient and stated that the patient had a stage IV lung carcinoma, metastatic. A CT of the chest, abdomen, and pelvis was ordered to evaluate the extent of spread of malignancy. CT scan revealed mediastinal lymphadenopathy, likely metastatic. Left suprahilar spiculated lung mass, measuring 3.8 cm in diameter. Other mass-like opacities in the lung bilaterally , likely representing synchronous lung carcinoma or areas of fibrotic changes. Evidence of anasarca with a large bilateral pleural effusions. COPD changes. Dilated right main pulmonary artery consistent with pulmonary hypertension. Narrowing of the left main pulmonary artery and lumbar branches by the left lung mass. No acute abdominal process other than ascites. L2 vertebral body wedge deformity, likely compression fracture. Borderline retroperitoneal lymphadenopathy. A 5 mm hyper-enhancing area most likely in the segment of 4A in both stages, most likely area of arterial portal venous shunting, but small hepatocellular carcinoma was not completely excludable, but unlikely. Cancer tumor markers CA-125 and CA 15.3, were within normal limits. Venous duplex bilateral lower extremities revealed chronic thrombus in superficial femoral vein right lower extremity. The patient was on DVT and GI prophylaxis. Supportive care was continued as per oncologist. Pain management was addressed. Bowel regimen was instituted. Thoracentesis was canceled secondary to the patient being unstable for procedure, as mentioned above. Post Tronic Machine Operator seen and evaluated the patient. The patient with moderate nutritional risk. Patient was started on Ensure supplement. Blood pressure was stable without any antihypertensive medication. The patient's condition deteriorated rapidly. He developed acute renal failure , which was worsening and on 02/05/2017, BUN- 75, creatinine -2.8, potassium elevated - 5.8. Hyperkalemia was treated with Kayexalate. Psychiatrist seen and evaluated the patient diagnosed him with major depressive disorder and agitation, started the patient on Paxil. The patient was becoming more weak and unresponsive. NG tube was placed for feeding. The patient's terminal condition and grave prognosis were discussed extensively with the ex- by primary medical doctor and polishing pad mounter. The patient subsequently became DNR/DNI status on 02/05/2017. The patient was started on dying protocol as per family wishes after sister out of the state had seen the patient. . All medications were stopped. The patient was started on morphine drip. On 02/06/2017 at 23:15 the patient . CAUSE OF : Cardiopulmonary arrest. FINAL DIAGNOSES: 1. Acute hypoxemic respiratory failure. 2. Advanced lung carcinoma, metastatic., stage IV 3. Pneumonia with Stenotrophomonas. 4. Chronic obstructive pulmonary disease/emphysema. 5. Acute encephalopathy. 6. Acute delirium, possible drug-induced encephalopathy, possible meningeal carcinomatosis. 7. Acute renal failure, likely multifactorial. 8. Hyperkalemia. 9. Anasarca. 10. Bilateral pleural effusion, right more than left, likely malignant and possible empyema. 11. Anemia of chronic disease. 12. Major depressive disorder. 13. History of tobacco abuse. 14. History of hypertension. 15. Possible post obstructive pneumonia versus healthcare associated pneumonia. Channing Crooks M.D. Luana [facility]French Hospital[facility]ma N.PJane DR: OCTAVIO JOB#: [id number] CC: NAA
[2017-02-15] MEDS ORDERED: Xarelto 10mg tab ORAL SCH (09:00)
== END 2017-02-06 23:15 | disposition expired | DRG 180 ==
LOC: EDBD 19:23 → EMR 19:30 → 2E 20:35 → EDBEDREQ 21:22
DX: C34.90 Malignant neoplasm of unspecified part of unspecified bronchus or lung (principal); J96.01 Acute respiratory failure with hypoxia; E43 Unspecified severe protein-calorie malnutrition; G92 Toxic encephalopathy; J15.8 Pneumonia due to other specified bacteria; N17.9 Acute kidney failure, unspecified; J91.0 Malignant pleural effusion; C80.0 Disseminated malignant neoplasm, unspecified; C77.9 Secondary and unspecified malignant neoplasm of lymph node, unspecified; I82.513 Chronic embolism and thrombosis of femoral vein, bilateral; C78.1 Secondary malignant neoplasm of mediastinum; Z51.5 Encounter for palliative care; Z88.6 Allergy status to analgesic agent; Z66 Do not resuscitate; Z87.891 Personal history of nicotine dependence; R41.0 Disorientation, unspecified; T50.905A Adverse effect of unspecified drugs, medicaments and biological substances, initial encounter; E87.5 Hyperkalemia; D63.8 Anemia in other chronic diseases classified elsewhere; F32.9 Major depressive disorder, single episode, unspecified; I10 Essential (primary) hypertension; Z79.01 Long term (current) use of anticoagulants
CPT/HCPCS: 36415; 71010; 71250; 71260; 74176; 74177; 76604; 80048; 80053; 80069; 80202; 81003; 82378; 82962; 83690; 83880; 84484; 85007; 85025; 85610; 85730; 86300; 86304; 87040; 87070; 87081; 87181; 87205; 90630; 93005; 93970; 94640; 94664; 94760; 99285; J1815; J7620